=== PATIENT | female | born 1945 | race Caucasian/White ===

== ENCOUNTER 2025-01-07 11:44 | Emergency (ER) | payer MEDICARE, MEDICAID ==
[~2025-01-07] VITALS: Ht 162.6 cm; Wt 54.5 kg
[2025-01-07] MEDS ORDERED: AZIT-43 PO (13:00)
[2025-01-07] MEDS ORDERED: MAGIC MT (13:00)
--- NOTE | 2025-01-07 13:00 | ED.PDOC ---
Eye-HPI HPI Comments 79-year-old female with no pertinent MHx presents with a chief complaint of a sore throat x3 days. Onset was sudden in his currently aggravated when swallowing her saliva. Using [id number] lozenges with some improvement. No other complaint or concern Denies chest pain shortness of breath Denies inability to move neck, history of meningitis Denies difficulty swallowing nor persistent salivation Denies fevers chills night sweats Denies persistent cough, runny nose, congestion Denies loss of appetite, unintentional weight loss over the past 3 months Denies voice changes Denies history of asthma or seasonal allergies Chief Complaint: Sore Throat Time Seen by MD: 12:08 Primary Care Provider: OLLIE Monreal Notes: Nurses Notes, Medications, Allergies Allergies: Coded Allergies: NO KNOWN ALLERGIES (Unverified , 03/05/24) Information Source: Patient Mode of Arrival: Ambulatory Past Medical History PAST MEDICAL HISTORY: [place] Surgical History: PTCA POISER BALANCE History: Denies all POISER BALANCE Hx Family History Family History: Reviewed,noncontributory to illness, Unknown Social History Smoker: Cigarettes, Less Than 1 Pack/Day Alcohol: Denies ETOH Use Drugs: Denies Drug Use Lives In: Home All Other Systems: Reviewed and Negative (Per HPI) Physical Exam General Appearance: No Apparent Distress, Normal HEENT: Normal ENT Inspection, Pharyngeal Erythema (Uvula midline. Moist mucous membranes. No strawberry tongue. No Koplik's spots. Canker sores to the roof of the hard palate.), Pharynx Normal, TMs Normal Neck: Full Range of Motion, Non-Tender, Normal, Normal Inspection Respiratory: Chest Non-Tender, Lungs Clear, No Accessory Muscle Use, No Respiratory Distress, Normal Breath Sounds Cardiovascular: No Edema, No JVD, No Murmur, No Gallop, Normal Peripheral Pulses, Regular Rate/Rhythm Breast Exam: Deferred Gastrointestinal: No Organomegaly, Non Tender, No Pulsatile Mass, Normal Bowel Sounds, Soft Genitalia: Deferred Pelvic: Deferred Rectal: Deferred Extremities: No calf tenderness, Normal capillary refill, Normal inspection, Normal range of motion, Non-tender, No pedal edema Musculoskeletal : Apperance: Normal Neurologic: Alert, assistant corporation counsel II-XII nml as Tested, No Motor Deficits, Normal Affect, Normal Mood, No Sensory Deficits Cerebellar Function: Normal Reflexes: Normal Skin: Dry, Normal Color, Warm Lymphatic: No Adenopathy Was a procedure done? Was a procedure done?: No EENT DIFF Eye: Other Sore Throat: Viral Pharyngitis, URI, Other X-Ray, Labs, Meds, VS Vital Signs Date Time Temp Pulse Resp B/P (MAP) Pulse Ox O2 Delivery O2 Flow Rate FiO2 01/07/25 11:59 99.1 99 17 111/51 (71) 98 99.1 X-Ray, Labs, Meds, VS Comment 79-year-old female with no pertinent MHx presents with a chief complaint of a sore throat x3 days. Patient arrives alert and oriented, ABC's intact, afebrile, vital signs stable, saturating well in room air After ROS and physical examination, differentials considered but not limited to: Patient with herpangina (cannot exclude early stomatitis). Good oral intake Smiling, alert and playful with examiner. Oral lesions without evidence of a irway compromise. Fully immunized and non-toxic appearing with good urine output. Rx mouthwash this evening if no significant improvement with motrin. Empiric tx with ABx Additional MDM Review of External, Non-ED records: External records reviewed. Discussion with independent historian (EMS, family) history obtained from the patient/parents (if applicable) at bedside Chronic conditions affecting care: None Social determinants of health affecting care: None Consideration of admission (observation or admission): I considered escalation of care to admission for this patient, however given the reassuring workup, the patient is safe for outpatient management. Tests considered but not performed: Labs and chest x-ray however patient was nontoxic non ill-appearing. The patient was able to ambulate too fast drink on room air with no signs of respiratory distress. Vital signs stable Time of 1ST Reevaluation: 12:54 Reevaluation 1ST: Improved Patient Education/Counseling: Diagnosis, Treatment Family Education/Counseling: Diagnosis, Treatment Departure 1 Departure Time of Disposition: 12:58 Impression: Primary Impression: Acute herpangina Disposition: HOME / SELF CARE / HOMELESS Condition: Fair e-Prescriptions Alum & Mag Hydrox-Simethicone (Magic Mouthwash) 80 Ml Ss 80 ML MT TIDPRN PRN for 10 Days, #200 ML 0 Refills Prov: LB FONSECA SINTER PRESS OPERATOR 01/07/25 Azithromycin (Azithromycin) 250 Mg Tab 250 MG PO DAILY MDD 500 for 5 Days, #6 TAB 0 Refills 2 TABLETS ORALLY ON DAY ONE, THEN 1 TABLET ORALLY DAILY FOR 4 DAYS Prov: LB FONSECA NP 01/07/25 Discharged With: Self Critical Care Note Critical Care Time?: No Stability Stability form required: No Heart Score Heart Score: Heart Score Response (Comments) Value History N/A 0 EKG N/A 0 Age N/A 0 Risk Factors N/A 0 Troponin N/A 0 Total 0 LB FONSECA NP January 07, 2025 13:00
[2025-01-07 13:03] VITALS: BP 115/60; PULSE 95; RESP 16; TEMP 99.2; O2SAT 98
== END 2025-01-07 13:15 | disposition home or self-care (01) ==
LOC: ER 11:44
DX: B08.5 Enteroviral vesicular pharyngitis (principal); F17.210 Nicotine dependence, cigarettes, uncomplicated

== ENCOUNTER 2025-01-11 08:17 | Inpatient (IN) | payer MEDICARE, MEDICAID ==
[~2025-01-11] VITALS: Ht 162.6 cm; Wt 53.0 kg
[2025-01-11] VITALS (7 sets, daily range): BP systolic 114–159; BP diastolic 47–82; PULSE 54–86; RESP 12–20; TEMP 97.6–98.4; O2SAT 95–96
[~2025-01-11 08:17] MED LIST: AZIT-43 PO; MAGIC MT
--- NOTE | 2025-01-11 08:46 | ED.PDOC ---
History of Present Illness HPI Comments 79-year-old female came to the ER stating that she was having lesions in her mouth white in color which started two weeks ago. She was seen in this ER for which she was given azithromycin in her mouth wash. Patient came back today stating that he has got worse and she is having pain in back of the throat. She does continue to smoke cigarettes. Her blood pressure on arrival is 96/53. She denies any past medical surgical history. Denies any other symptoms. Chief Complaint: Thrush Time Seen by MD: 08:19 Primary Care Provider: ZAYDA Reviewed Notes: Nurses Notes, Medications, Allergies Allergies: Coded Allergies: NO KNOWN ALLERGIES (Unverified , 03/05/24) Home Meds Active Scripts Alum & Mag Hydrox-Simethicone (Magic Mouthwash) 80 Ml Ss, 80 ML MT TIDPRN PRN for 10 Days, #200 ML 0 Refills Prov:LB FONSECA NP 01/07/25 Azithromycin (Azithromycin) 250 Mg Tab, 250 MG PO DAILY MDD 500 for 5 Days, #6 TAB 0 Refills 2 TABLETS ORALLY ON DAY ONE, THEN 1 TABLET ORALLY DAILY FOR 4 DAYS Prov:LB FONSECA NP 01/07/25 Information Source: Patient Mode of Arrival: Ambulatory Severity: Moderate Timing: Days Duration: Since onset Past Medical History PAST MEDICAL HISTORY: [place] Surgical History: PTCA CLINICAL QUALITY ASSURANCE ASSOCIATE 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: Denies all CLINICAL QUALITY ASSURANCE ASSOCIATE Hx Family History Family History: Reviewed,noncontributory to illness, Unknown Social History Smoker: Cigarettes, Less Than 1 Pack/Day Alcohol: Denies ETOH Use Drugs: Denies Drug Use Lives In: Home Constitutional: denies: chills, diaphoresis, fatigue, fever, malaise, sweats, weakness, others EENTM: reports: throat pain; denies: blurred vision, double vision, ear bleeding, ear discharge, ear drainage, ear pain, ear ringing, eye pain, eye redness, hearing loss, mouth pain, mouth swelling, nasal discharge, nose bleeding, nose congestion, nose pain, photophobia, tearing, throat swelling, voice changes, others Respiratory: denies: cough, hemoptysis, orthopnea, SOB at rest, shortness of breath, SOB with excertion, stridor, wheezing, others Cardiovascular: denies: chest pain, dizzy spells, diaphoresis, Dyspnea on exertion, edema, irregular heart beat, left arm pain, lightheadedness, palpitations, PND, syncope, others Gastrointestinal: denies: abdomen distended, abdominal pain, blood streaked bowels, constipated, diarrhea, dysphagia, difficulty swallowing, hematemesis, melena, nausea, poor appetite, poor fluid intake, rectal bleeding, rectal pain, vomiting, others Genitourinary: denies: abnormal vagina bleeding, burning, dyspareunia, dysuria, flank pain, frequency, hematuria, incontinence, pain, , vagina discharge, urgency, others Neurological: denies: dizziness, fainting, headache, left sided numbness, left sided weakness, numbness, paresthesia, pre-existing deficit, right sided numbness, right sided weakness, seizure, speech problems, tingling, tremors, weakness, others Musculoskeletal: denies: back pain, gout, joint pain, joint swelling, muscle pain, muscle stiffness, neck pain, others Integumetry: denies: bruises, change in color, change in hair/nails, dryness, laceration, lesions, lumps, rash, wounds, others Allergic/Immunocompromised: denies: Difficulty Healing, Frequent Infections, Hives, Itching, others Hematologic/Lymphatic: denies: anemia, blood clots, easy bleeding, easy bruising, swollen glands, others Endocrine: denies: excessive hunger, excessive sweating, excessive thirst, excessive urination, flushing, intolerance to cold, intolerance to heat, unexplained weight gain, unexplained weight loss, others Psychiatric: denies: anxiety, bipolar disorder, depression, hopeless, panic disorder, schizophrenia, sleepless, suicidal, others Physical Exam General Appearance: Moderate Distress, Thin HEENT: Pharyngeal Erythema Neck: Full Range of Motion, Non-Tender, Normal, Normal Inspection Respiratory: Other (Coarse breath sounds) Cardiovascular: No Edema, No JVD, No Murmur, No Gallop, Normal Peripheral Pulses, Regular Rate/Rhythm Breast Exam: Deferred Gastrointestinal: No Organomegaly, Non Tender, No Pulsatile Mass, Normal Bowel Sounds, Soft Genitalia: Deferred Pelvic: Deferred Rectal: Deferred Extremities: No calf tenderness, No pedal edema Musculoskeletal : Apperance: Normal Neurologic: Alert, No Motor Deficits, No Sensory Deficits Cerebellar Function: NOT DONE Reflexes: NOT DONE Skin: Normal Color Peripheral Pulses: 3+ Radial (R), 3+ Radial (L) Lymphatic: No Adenopathy Was a procedure done? Was a procedure done?: No Differential Dx Considerations may include: Pneumonitis Pharyngitis X-Ray, Labs, Meds, VS Vital Signs Date Time Temp Pulse Resp B/P (MAP) Pulse Ox O2 Delivery O2 Flow Rate FiO2 01/11/25 08:17 97.6 90 16 96/53 (67) 95 97.6 Lab Test 01/11/25 08:55 Range/Units White Blood Count 4.9 4.4-10.8 10^3/uL Red Blood Count 3.96 L 4.0-5.20 10^6/uL Hemoglobin 12.7 12.2-16.2 g/dL Hematocrit 37.9 36.0-46.0 % Mean Corpuscular Volume 95.7 80.0-100.0 fL Mean Corpuscular Hemoglobin 32.2 H 28.0-32.0 pg Mean Corpuscular Hemoglobin Concent 33.6 32.0-36.0 g/dL Red Cell Distribution Width 15.0 H 11.8-14.3 % Platelet Count 18 *L 140-450 10^3/uL Mean Platelet Volume 8.9 6.9-10.8 fL Neutrophils (%) (Auto) 37.0-80.0 % Lymphocytes (%) (Auto) 10.0-50.0 % Monocytes (%) (Auto) 0.0-12.0 % Basophils (%) (Auto) 0.0-2.0 % Neutrophils # (Auto) 1.6-8.6 10 ^3/uL Lymphocytes # (Auto) 0.4-5.4 10 ^3/uL Monocytes # (Auto) 0-1.3 10 ^3/uL Differential Total Cells Counted 100.0 100 Neutrophils % (Manual) 31 L 37.0-80.0 Band Neutrophils % (Manual) 1 Lymphocytes % (Manual) 59 H 10.0-50.0 Monocytes % (Manual) 4 0-12 Eosinophils % (Manual) 5 0-7 Basophils % (Manual) 0 0.0-2.0 Metamyelocytes % (manual) 0 Myelocytes % (Manual) 0 Promyelocytes % (Manual) 0 Blast Cells % (Manual) 0 Reactive Lymphocytes 0 Platelet Estimate Markedly decreased Sodium Level 139 136-145 mmol/L Potassium Level 3.6 3.5-5.1 mmol/L Chloride Level 108 H 98-107 mmol/L Carbon Dioxide Level 23 20-31 mmol/L Anion Gap 8 5-15 Blood Urea Nitrogen 16 9-23 mg/dL Creatinine 0.66 0.550-1.02 mg/dL Glomerular Filtration Rate Calc 88 >90 mL/min BUN/Creatinine Ratio 24.2 H 10.0-20.0 Serum Glucose 94 74-106 mg/dL Calcium Level 9.6 8.7-10.4 mg/dL Patient alert. Complaining of throat pain. Saturation within normal limits. Answering questions. Blood pressure on the low side. Establish intravenous access. Was given fluids. Was given Rocephin. Was given clindamycin. Continues to smoke cigarettes. Counseled patient on effects of smoking cigarettes for 15 minutes. She is underweight. Explained to the patient that she will need to gain weight. Continue monitoring. She was given steroid. She was given Rocephin. She was given clindamycin. [place] [id number] Ph: [phone] DIAGNOSTIC IMAGING Diagnostic Imaging Report : [id number] Signed PATIENT: STEVE SANTIAGO CACCT: [id number] UNIT: [id number] : 1945 LOC: ER ROOM / BED: / AGE / SEX: 79 / F ADM STATUS: REG ER SERVICE 9 ORDERING PHYSICIAN: NAUN ZAPATA MD PROCEDURE(s): CXRP - CHEST PORTABLE REASON: sob ORDER NUMBER(s): [id number], ACCESSION NUMBER(s): [id number] EXAM: XY CHEST PORTABLE Indication: sob Technique: Single frontal view of the chest was obtained Comparison: None FINDINGS: Lines and Tubes: None Lungs: No focal consolidation. Pleura: No effusion. No pneumothorax. Cardiomediastinal contours: Unremarkable. Atherosclerotic vascular calcifications of the thoracic aorta are noted. Bones: No acute osseous abnormality. IMPRESSION: No acute cardiopulmonary disease. ATED BY: KERRI ZAVALA MD DICTATED DATE/TIME: 01/11/25908 SIGNED BY: KERRI ZAVALA MD SIGNED DATE/TIME: 06/02/25 0909 CC: Time of 1ST Reevaluation: 08:43 Reevaluation 1ST: Unchanged Patient Education/Counseling: Diagnosis, Treatment, Prognosis Family Education/Counseling: Need For Follow Up Departure 1 Departure Time of Disposition: 08:45 Impression: Primary Impression: Pneumonitis Additional Impressions: Pharyngitis Qualified Codes: J02.9 - Acute pharyngitis, unspecified Thrombocytopenia Disposition: ADMITTED INPATIENT Admit to: Med Surg Condition: Guarded Critical Care Note Critical Care Time?: Yes (90 min-critical care time only) Critical care comment: Platelets are low transfusion consultation Stability Stability form required: No Heart Score Heart Score: Heart Score Response (Comments) Value History N/A 0 EKG N/A 0 Age N/A 0 Risk Factors N/A 0 Troponin N/A 0 Total 0 I personally scribed for NAUN ZAPATA MD ([email or web address]) on 01/11/25 at 09:50. Electronically submitted by Roni Zhou ([email or web address]). NAUN ZAPATA MD Jan 11, 2025 08:46
[2025-01-11 09:06] LABS: Hematocrit 37.9 % (36.0-46.0); Hemoglobin 12.7 g/dL (12.2-16.2); Mean Corpuscular Hemoglobin 32.2 pg (28.0-32.0); Mean Corpuscular Hgb Conc. 33.6 g/dL (32.0-36.0); Mean Corpuscular Volume 95.7 fL (80.0-100.0); Red Blood Cells 3.96 10^6/uL (4.0-5.20); White Blood Cell 4.9 10^3/uL (4.4-10.8)
--- NOTE | 2025-01-11 09:12 | DVH ---
EXAM: XY CHEST PORTABLE Indication: sob Technique: Single frontal view of the chest was obtained Comparison: None FINDINGS: Lines and Tubes: None Lungs: No focal consolidation. Pleura: No effusion. No pneumothorax. Cardiomediastinal contours: Unremarkable. Atherosclerotic vascular calcifications of the thoracic ao rta are noted. Bones: No acute osseous abnormality. IMPRESSION: No acute cardiopulmonary disease.
[2025-01-11 09:14] LABS: Potassium 3.6 mmol/L (3.5-5.1); Sodium 139 mmol/L (136-145)
[2025-01-11 09:15] LABS: Anion Gap 8 (5-15); Carbon Dioxide 23 mmol/L (20-31); Platelet Count (auto) 18 10^3/uL (140-450)
[2025-01-11 09:16] LABS: Calcium 9.6 mg/dL (8.7-10.4)
[2025-01-11 09:17] LABS: Basophils % (manual) 0 (0.0-2.0); Blast Cells 0; Metamyelocytes % 0; Myelocytes % 0; Promyelocytes % 0; Reactive Lymphocytes 0
[2025-01-11 09:20] LABS: BUN/Creatinine Ratio 24.2 (10.0-20.0); Blood Urea Nitrogen 16 mg/dL (9-23); Glucose 94 mg/dL (74-106)
[2025-01-11 09:22] LABS: Chloride 108 mmol/L (98-107)
[2025-01-11 09:29] LABS: Band Neutrophils % (manual) 1; Eosinophils % (manual) 5 (0-7); Lymphocytes % (manual) 59 (10.0-50.0); Monocytes % (manual) 4 (0-12); Platelet Estimate Markedly Decreased
--- NOTE | 2025-01-11 10:34 | DVHHP2 ---
Admitting Diagnosis: Sores to mouth History of Present Illness 79 y/o female patient presents with c/o white sores to mouth. Patient states she was previously seen for same complaint and was prescribed Azithromycin. Patient is a smoker. While in the emergency department the patient was evaluated by the provider, As per provider: Labs, vital signs, and imagining monitored. Patient will be admitted for further evaluation and treatment. I discussed admission with the patient/family and is in agreement to treatment plan. Allergies: Coded Allergies: NO KNOWN ALLERGIES (Unverified , 03/05/24) Home Meds Active Scripts Alum & Mag Hydrox-Simethicone (Magic Mouthwash) 80 Ml Ss, 80 ML MT TIDPRN PRN for 10 Days, #200 ML 0 Refills Prov:LB FONSECA CNC SUPERVISOR 01/07/25 Azithromycin (Azithromycin) 250 Mg Tab, 250 MG PO DAILY MDD 500 for 5 Days, #6 TAB 0 Refills 2 TABLETS ORALLY ON DAY ONE, THEN 1 TABLET ORALLY DAILY FOR 4 DAYS Prov:LB FONSECA CNC SUPERVISOR 01/07/25 Reported Medications Oxybutynin Chloride (Oxybutynin Chloride) 2.5 Mg Tab, 10 MG PO, TAB 01/11/25 Pantoprazole Sodium Sesquihydr (Pantoprazole Sodium) 40 Mg Tab, 40 MG PO, TAB 01/11/25 Clopidogrel Bisulfate (CLOPIDOGREL) 75 Mg Tab, 1 TAB PO DAILY, #90 TAB 1 Refill 01/11/25 Atorvastatin Calcium (ATORVASTATIN CALCIUM) 10 Mg Tab, 1 TAB PO DAILY, #30 TAB 5 Refills 01/11/25 Methotrexate (Methotrexate) 2.5 Mg Tab, 2.5 MG PO, MG 01/11/25 Gabapentin (Gabapentin) 600 Mg Tab, 600 MG PO TID for 30 Days, MG 01/11/25 Current Medications Current Medications Medications (Trade) Dose Ordered Sig/Damian Route PRN Reason Start Time Stop Time Status Last Admin Acetaminophen/ Hydrocodone Bitart ([place] 5/325MG Tab) 1 tab Q4HP PRN PO MODERATE PAIN (4-6 PAIN SCALE) 01/11/25 10:45 01/11/25 12:39 Ondansetron HCl (Zofran) 4 mg Q4HP PRN IV NAUSEA / VOMITING 01/11/25 10:45 Docusate Sodium (Colace Capsule) 100 mg BIDPRN PRN PO FOR CONSTIPATION 01/11/25 10:45 Acetaminophen (Tylenol Tablet) 650 mg Q6HP PRN PO PAIN SCALE 1-3 OR TEMP>100.4 01/11/25 10:45 Morphine Sulfate 2 mg Q4HPRN PRN IV SEVERE PAIN (7-10 PAIN SCALE) 01/11/25 10:45 Enoxaparin Sodium (Lovenox) 40 mg DAILY SC 01/11/25 10:45 01/11/25 10:36 DC Lidocaine HCl (Xylocaine 2% Viscous) 10 ml Q6HR PO 01/11/25 12:00 01/11/25 18:06 Nystatin (Mycostatin (Mouth-Throat)) 5 ml Q6HR MT 01/11/25 12:00 01/11/25 18:05 Review of Systems Constitutional: denies chills, denies fever, denies malaise Eyes: denies eye pain, denies vision change ENT: denies ear pain, denies headache, denies nasal congestion, denies painful swallowing, denies voice change Cardiovascular: denies chest pain, denies edema, denies orthopnea, denies palpitations, denies paroxysmal nocturnal dyspnea Respiratory: denies cough, denies shortness of breath Gastrointestinal: denies constipation, denies diarrhea, denies nausea, denies vomiting Genitourinary: denies dysuria, denies frequent urination, denies urethral discharge Musculoskeletal: denies back pain, denies joint pain, denies muscle pain Skin: denies bruising, denies itching, denies rash Neurological: denies focal weakness, denies headache, denies sensory changes Psychiatric: denies anxiety, denies depression Endocrine: denies polydipsia, denies polyuria Hematologic/Lymphatic: denies easy bleeding, denies easy bruising, denies enlarged lymph nodes Allergic/Immunologic: denies allergy, denies hives Vital Signs Vital Signs Date Time Temp Pulse Resp B/P (MAP) Pulse Ox O2 Delivery O2 Flow Rate FiO2 01/11/25 18:13 97.6 54 20 159/66 (97) 96 97.6 01/11/25 18:13 Room Air* 0 21 Physical Exam General Appearance: alert, no distress HEENT: EOMI, PERRLA, normal external inspect of ears, no icterus, no nasal drainage Neck: no carotid bruit, no jugular venous distention (JVD), no lymphadenopathy Chest: normal thorax Respiratory: clear to auscultation, normal air movement Cardiovascular: regular rate and rhythm, no diastolic murmur, no jugular venous distention (JVD), no rub, no systolic murmur Abdominal: soft, no hepatomegaly, no mass, no splenomegaly, no tenderness Genitourinary: grossly normal external Musculoskeletal: no joint tenderness, no swelling Extremities: normal pulses, no calf tenderness, no clubbing, no cyanosis, no edema Skin: no bruising, no jaundice, no rash Neurological: alert, No focal deficit Results Labs Test 01/11/25 18:16 01/11/25 08:55 Range/Units White Blood Count 2.7 L 4.4-10.8 10^3/uL Red Blood Count 3.82 L 4.0-5.20 10^6/uL Hemoglobin 12.5 12.2-16.2 g/dL Hematocrit 36.3 36.0-46.0 % Mean Corpuscular Volume 95.0 80.0-100.0 fL Mean Corpuscular Hemoglobin 32.7 H 28.0-32.0 pg Mean Corpuscular Hemoglobin Concent 34.4 32.0-36.0 g/dL Red Cell Distribution Width 15.1 H 11.8-14.3 % Platelet Count 22 L 140-450 10^3/uL Mean Platelet Volume 8.9 6.9-10.8 fL Neutrophils (%) (Auto) 69.5 37.0-80.0 % Lymphocytes (%) (Auto) 29.2 10.0-50.0 % Monocytes (%) (Auto) 0.9 0.0-12.0 % Eosinophils (%) (Auto) 0.3 0.0-7.0 % Basophils (%) (Auto) 0.1 0.0-2.0 % Neutrophils # (Auto) 1.9 1.6-8.6 10 ^3/uL Lymphocytes # (Auto) 0.8 0.4-5.4 10 ^3/uL Monocytes # (Auto) 0 0-1.3 10 ^3/uL Eosinophils # (Auto) 0 0-0.8 10 ^3/uL Basophils # (Auto) 0 0-0.2 10 ^3/uL Nucleated Red Blood Cells 0.2 % Platelet Estimate Decreased Differential Total Cells Counted 100.0 100 Neutrophils % (Manual) 31 L 37.0-80.0 Band Neutrophils % (Manual) 1 Lymphocytes % (Manual) 59 H 10.0-50.0 Monocytes % (Manual) 4 0-12 Eosinophils % (Manual) 5 0-7 Basophils % (Manual) 0 0.0-2.0 Metamyelocytes % (manual) 0 Myelocytes % (Manual) 0 Promyelocytes % (Manual) 0 Blast Cells % (Manual) 0 Reactive Lymphocytes 0 Sodium Level 139 136-145 mmol/L Potassium Level 3.6 3.5-5.1 mmol/L Chloride Level 108 H 98-107 mmol/L Carbon Dioxide Level 23 20-31 mmol/L Anion Gap 8 5-15 Blood Urea Nitrogen 16 9-23 mg/dL Creatinine 0.66 0.550-1.02 mg/dL Glomerular Filtration Rate Calc 88 >90 mL/min BUN/Creatinine Ratio 24.2 H 10.0-20.0 Serum Glucose 94 74-106 mg/dL Calcium Level 9.6 8.7-10.4 mg/dL Plan 1. Oral sores Monitor, IV abx, Lidocaine swish and swallow, Nystatin swish and spit 2. Thrombocytopenia Monitor, transfuse platelets 3. Smoker Monitor, smoking cessation education 4. Pharyngitis Monitor, throat swab Plan discussed with: Patient, Other ALEX GROSSMAN NP Jan 11, 2025 10:34
[2025-01-11] MEDS ORDERED: DOCUSATE SOD 100 MG CAP PO PRN (10:45)
[2025-01-11] MEDS ORDERED: MORPHINE SULFATE INJ 2 MG/ml SYRG IV PRN (10:45)
[2025-01-11] MEDS ORDERED: ENOXAPARIN SOD 40 MG/0.4 ML SYRINGE SC SCH (10:45)
[2025-01-11] MEDS: cefTRIAXone 1GM/50ML D5W 50 ML IV ONE (12:27)
[2025-01-11] MEDS: SODIUM CHLORIDE 0.9% 1,000 ML IV ONE (12:28)
[2025-01-11] MEDS: CLINDAMYCIN 300MG IV 50 ML IV ONE (12:28)
[2025-01-11] MEDS: methylPREDNISolone SOD SUCC 125 MG/2 ML VL IV ONE (12:28)
[2025-01-11] MEDS: LIDOCAINE VISCOUS 2% 15ML UD PO SCH (12:38)
[2025-01-11] MEDS: NYSTATIN (MOUTH-THROAT) 500,000 UNITS/5 ML SUSP MT SCH (12:38)
[2025-01-11] MEDS: HYDROcodone-ACET 5/325MG TAB PO PRN (12:39)
[2025-01-11] MEDS ORDERED: GABA-339 PO (18:17)
[2025-01-11] MEDS ORDERED: METH2.5T PO (18:17)
[2025-01-11] MEDS ORDERED: PANT40T PO (18:25)
[2025-01-11] MEDS ORDERED: CLOP75TA70 PO (18:25)
[2025-01-11] MEDS ORDERED: ATOR10TA52 PO (18:25)
[2025-01-11] MEDS ORDERED: OXYB2.5T PO (18:26)
[2025-01-11 18:52] LABS: Basophils # (auto) 0 10 ^3/uL (0-0.2); Eosinophils # (auto) 0 10 ^3/uL (0-0.8); Eosinophils % (auto) 0.3 % (0.0-7.0); Hemoglobin 12.5 g/dL (12.2-16.2); Lymphocytes # (auto) 0.8 10 ^3/uL (0.4-5.4); Monocytes # (auto) 0 10 ^3/uL (0-1.3); Neutrophils # (auto) 1.9 10 ^3/uL (1.6-8.6); Nucleated Red Blood Cells % 0.2 %; White Blood Cell 2.7 10^3/uL (4.4-10.8)
[2025-01-11 18:54] LABS: Basophils % (auto) 0.1 % (0.0-2.0); Hematocrit 36.3 % (36.0-46.0); Lymphocytes % (auto) 29.2 % (10.0-50.0); Mean Corpuscular Hemoglobin 32.7 pg (28.0-32.0); Mean Corpuscular Hgb Conc. 34.4 g/dL (32.0-36.0); Monocytes % (auto) 0.9 % (0.0-12.0); Neutrophils % (auto) 69.5 % (37.0-80.0); Platelet Count (auto) 22 10^3/uL (140-450); Red Blood Cells 3.82 10^6/uL (4.0-5.20); Red Cell Distribution Width 15.1 % (11.8-14.3)
[2025-01-11 19:25] LABS: Platelet Estimate Decreased
[2025-01-12] VITALS (8 sets, daily range): BP systolic 140–181; BP diastolic 77–97; PULSE 54–90; RESP 16–18; TEMP 96.9–98.8; O2SAT 95–98
[2025-01-12] MEDS: traZODone HCL 50 MG TAB PO PRN (01:25)
[2025-01-12 05:44] LABS: Urine Bacteria None Seen /hpf (None Seen)
[2025-01-12 05:56] LABS: Urine Blood TRACE /uL (Negative); Urine Clarity Clear (Clear); Urine Color Light-Yellow (Yellow); Urine Protein, UAD Negative (Negative); Urine Squamous Epithelial Cell None Seen /hpf (<5); Urine Urobilinogen Normal (Negative); Urine WBC < 1 /HPF (0-5)
[2025-01-12 06:25] LABS: Alanine Aminotransferase 12 U/L (7-40); Albumin 3.7 g/dL (3.2-4.8); Alkaline Phosphatase 66 U/L (46-116); Anion Gap 9 (5-15); Blood Urea Nitrogen 12 mg/dL (9-23); Calcium 9.1 mg/dL (8.7-10.4); Carbon Dioxide 23 mmol/L (20-31); Chloride 107 mmol/L (98-107); Glucose 100 mg/dL (74-106); Potassium 3.5 mmol/L (3.5-5.1); Sodium 139 mmol/L (136-145); Total Protein 6.9 g/dL (5.7-8.2)
[2025-01-12 06:26] LABS: Aspartate Aminotransferase 20 U/L (13-40); Bilirubin, Total 0.5 mg/dL (0.2-1.0)
[2025-01-12 06:30] LABS: Basophils # (auto) 0 10 ^3/uL (0-0.2); Eosinophils # (auto) 0 10 ^3/uL (0-0.8); Eosinophils % (auto) 0.1 % (0.0-7.0); Hemoglobin 11.6 g/dL (12.2-16.2); Monocytes # (auto) 0 10 ^3/uL (0-1.3); Monocytes % (auto) 0.5 % (0.0-12.0); Neutrophils # (auto) 3.8 10 ^3/uL (1.6-8.6)
[2025-01-12 06:33] LABS: Hematocrit 34.5 % (36.0-46.0); Lymphocytes # (auto) 2.2 10 ^3/uL (0.4-5.4); Lymphocytes % (auto) 36.4 % (10.0-50.0); Mean Corpuscular Hemoglobin 32.1 pg (28.0-32.0); Mean Corpuscular Hgb Conc. 33.6 g/dL (32.0-36.0); Mean Corpuscular Volume 95.4 fL (80.0-100.0); Red Blood Cells 3.62 10^6/uL (4.0-5.20); Red Cell Distribution Width 14.8 % (11.8-14.3); White Blood Cell 6.1 10^3/uL (4.4-10.8)
[2025-01-12 06:46] LABS: Platelet Count (auto) 18 10^3/uL (140-450)
[2025-01-12] MEDS ORDERED: CHOL20007 PO (10:53)
[2025-01-12] MEDS ORDERED: FOLI-119 PO (10:53)
[2025-01-12] MEDS ORDERED: GABA800T97 PO (10:53)
[2025-01-12] MEDS ORDERED: METO25TA5 PO (10:53)
[2025-01-12] MEDS ORDERED: HYDR-4798 PO (10:54)
--- NOTE | 2025-01-12 12:09 | DVHPN2 ---
Progress Note - Dictate Date Seen: Jan 12, 2025 Medical Necessity Reason Pt with a Central, PICC or Fol: No vital signs Vital Sign Date Time Temp Pulse Resp B/P (MAP) Pulse Ox O2 Delivery O2 Flow Rate FiO2 01/12/25 08:15 Room Air* 0 21 01/12/25 00:38 96.9 54 18 140/77 (98) 98 96.9 Total Intake and Output 01/11/25 01/11/25 01/12/25 15:00 23:00 07:00 Intake Total 1100 ml 333 ml 100 ml Balance 1100 ml 333 ml 100 ml medications Current Medications Medications Dose Ordered Sig/Damian Route Start Time Stop Time Status Last Admin Dose Admin Acetaminophen/ Hydrocodone Bitart 1 tab Q4HP PRN PO 01/11/25 10:45 01/11/25 21:36 1 TAB Ondansetron HCl 4 mg Q4HP PRN IV 01/11/25 10:45 Docusate Sodium 100 mg BIDPRN PRN PO 01/11/25 10:45 Acetaminophen 650 mg Q6HP PRN PO 01/11/25 10:45 Morphine Sulfate 2 mg Q4HPRN PRN IV 01/11/25 10:45 Lidocaine HCl 10 ml Q6HR PO 01/11/25 12:00 01/12/25 05:26 10 ML Nystatin 5 ml Q6HR MT 01/11/25 12:00 01/12/25 05:26 5 ML Trazodone HCl 50 mg HS PRN PO 01/12/25 00:45 01/12/25 01:25 50 MG objective General Appearance: alert, no distress HEENT: EOMI, PERRLA, normal external inspect of ears, no icterus, no nasal drainage Neck: no carotid bruit, no jugular venous distention (JVD), no lymphadenopathy Chest: normal thorax Respiratory: clear to auscultation, normal air movement Cardiovascular: regular rate and rhythm, no diastolic murmur, no jugular venous distention (JVD), no rub, no systolic murmur Abdominal: soft, no hepatomegaly, no mass, no splenomegaly, no tenderness Musculoskeletal: no joint tenderness, no swelling Extremities: normal pulses, no calf tenderness, no clubbing, no cyanosis, no edema Skin: no bruising, no jaundice, no rash Neurological: alert, No focal deficit laboratory and microbiology Laboratory Tests 01/12/25 05:29 Test 01/12/25 05:29 Range/Units Serum Glucose 100 74-106 mg/dL Problem List 1. Oral sores Monitor, IV abx, Lidocaine swish and swallow, Nystatin swish and spit 2. Thrombocytopenia Monitor, transfuse platelets 3. Smoker Monitor, smoking cessation education 4. Pharyngitis Monitor, throat swab Assessment/Plan Subjective Patient is awake and alert. Objective I did speak with hematology today. Patient had low platelet count. Patient has underlying history of rheumatoid arthritis. She is on a high dose of methotrexate. Patient also has CAD. Patient takes aspirin and Plavix. Plan Monitor to see if aspirin, Plavix and methotrexate is because of low platelet level. Multiple labs ordered. Transfuse 1 unit of platelets today. Discussed with cardiology if patient continues to need antiplatelet therapy at this time. Smoking cessation. Continue lidocaine and nystatin swish and swallow for mouth sores. Patient most likely has low immune system due to methotrexate. Repeat labs ordered for a.m. Plan discussed with: Patient, Other CC Plasma Assessment Blood Product Administration S: [id number] ALEX GROSSMAN NP Jan 12, 2025 12:09
[2025-01-12 13:43] LABS: Wright Stain Ready for Review
[2025-01-12 13:48] LABS: Thyroid Stimulating Hormone 0.69 uIU/mL (0.55-4.78)
[2025-01-12 14:34] LABS: Folate (Folic Acid) 15.92 ng/mL (>5.38)
[2025-01-12 14:45] LABS: INR 1.14 (0.9-1.15); Prothrombin Time 11.9 sec (9.3-11.8)
--- NOTE | 2025-01-12 17:57 | DVHINCON2 ---
Date of service: Jan 12, 2025 History of Present Illness HPI Patient is a 79-year-old female who presented to the hospital with sore throat and white lesions in the mouth. It seems that the patient presented few days back and then again to emergency room. She was found to have thrombocytopenia and has received platelet transfusion since admission. It is of note that the patient does have old history of coronary artery disease and has had [place] in [place] [facility] She has been kept on aspirin with Plavix as outpatient since then. She denies any recent chest pains or dyspnea on exertion. Primary team requested for Cardiology consultation as they have decided to hold back on anticoagulation/antiplatelet therapy. Patient actually came to our office back in 2021 and was lost to follow-up since then. She denies any leg swellings. She denies palpitations. It is of note that she is active cigarette smoker and does carry old history of possible COPD. She does complain of chronic cough. Home Meds Active Scripts Alum & Mag Hydrox-Simethicone (Magic Mouthwash) 80 Ml Ss, 80 ML MT TIDPRN PRN for 10 Days, #200 ML 0 Refills Prov:LB FONSECA DRIER OPERATOR HELPER 01/07/25 Azithromycin (Azithromycin) 250 Mg Tab, 250 MG PO DAILY MDD 500 for 5 Days, #6 TAB 0 Refills 2 TABLETS ORALLY ON DAY ONE, THEN 1 TABLET ORALLY DAILY FOR 4 DAYS Prov:LB FONSECA DRIER OPERATOR HELPER 01/07/25 Reported Medications Hydrocodone-Acetaminophen (Hydrocodone Bitartrate/AC 10-325 mg) 1 Tab Tab, 1 TAB PO [id number] for pain, TAB 01/12/25 Cholecalciferol (VITAMIN D3) 2,000 Unit Tab, 1 TAB PO DAILY, #30 TAB 5 Refills 01/12/25 Metoprolol Tartrate (Metoprolol Tartrate) 25 Mg Tab, 25 MG PO BID for 30 Days, MG 25 Gabapentin (Gabapentin) 800 Mg Tab, 800 MG PO TID, TAB 01/12/25 Folic Acid (Folic Acid) 1 Mg Tab, 1 MG PO DAILY for 30 Days, MG /25 Oxybutynin Chloride (Oxybutynin Chloride) 2.5 Mg Tab, 10 MG PO, TAB 6//25 Pantoprazole Sodium Sesquihydr (Pantoprazole Sodium) 40 Mg Tab, 40 MG PO, TAB 01/11/25 Clopidogrel Bisulfate (CLOPIDOGREL) 75 Mg Tab, 1 TAB PO DAILY, #90 TAB 1 Refill 01/11/25 Atorvastatin Calcium (ATORVASTATIN CALCIUM) 10 Mg Tab, 1 TAB PO DAILY, #30 TAB 5 Refills 01/11/25 Methotrexate (Methotrexate) 2.5 Mg Tab, 2.5 MG PO, MG 01/11/25 Gabapentin (Gabapentin) 600 Mg Tab, 600 MG PO TID for 30 Days, MG 01/11/25 Past Medical History Others Past medical history includes coronary artery disease and status post PCI in 2000 (at [facility] hyperlipidemia, rheumatoid arthritis, Crohn's disease, chronic low back pain and COPD. She has had back surgeries before. She smokes cigarettes for many decades. She has been kept on dual antiplatelet therapy (aspirin/Plavix) for long-term. Smoker: Positive Drugs: None Review of Systems Constitutional: Malaise, Weakness Pulmonary/Respiratory: Dyspnea Cardiovascular: No symptom reported All Other Systems 14 point review of system was performed. Relevant findings as per above and as per HPI. Otherwise negative. H&P Exam Vital Signs Vital Signs Date Time Temp Pulse Resp B/P (MAP) Pulse Ox O2 Delivery O2 Flow Rate FiO2 01/12/25 13:35 97.8 66 18 150/79 97.8 01/12/25 13:00 97 01/12/25 08:15 Room Air* 0 21 General Appeara: Well developed Head Exam: Normal inspection Eye Exam: bilateral eye PERRL Mouth: Normal Inspection Pulmonary/Respiratory: Rhonci Cardiovascular/Chest: Normal inspection, Systolic murmur Peripheral Pulses: 2+ carotid (R), 2+ carotid (L), 2+ femoral (R), 2+ femoral (L), 2+ dorsalis pedis (R), 2+ dorsalis pedis (L), 2+ Radial (R), 2+ Radial (L) Abdominal Exam: Normal bowel sounds, Soft Neuro/Mental St: Alert, Oriented Appearance: Appropriate appearance Eye contact/ Speech: Cooperative Labs/Xrays Labs Test 01/12/25 15:49 01/12/25 13:57 01/12/25 05:39 01/12/25 05:29 Range/Units Prothrombin Time 11.9 H 9.3-11.8 sec Prothrombin Time INR 1.14 0.9-1.15 Fibrinogen 276 177-375 mg/dL Vitamin B12 Level 492 211-911 pg/mL Folic Acid 15.92 >5.38 ng/mL Urine Color Light-yellow Yellow Urine Clarity Clear Clear Urine pH 6.0 5.0-9.0 Urine Specific [place] 1.010 1.001-1.035 Urine Protein Negative Negative Urine Ketones Negative Negative Urine Blood Trace H Negative /uL Urine Nitrite Negative Negative Urine Bilirubin Negative Negative Urine Urobilinogen Normal Negative mg/dL Urine Leukocyte Esterase Negative Negative /uL Urine RBC 2 0 - 4 /hpf Urine Microscopic WBC < 1 0-5 /HPF Urine Squamous Epithelial Cells None seen <5 /hpf Urine Bacteria None seen None Seen /hpf Urine Glucose Normal Normal mg/dL White Blood Count 6.1 # 4.4-10.8 10^3/uL Red Blood Count 3.62 L 4.0-5.20 10^6/uL Hemoglobin 11.6 L 12.2-16.2 g/dL Hematocrit 34.5 L 36.0-46.0 % Mean Corpuscular Volume 95.4 80.0-100.0 fL Mean Corpuscular Hemoglobin 32.1 H 28.0-32.0 pg Mean Corpuscular Hemoglobin Concent 33.6 32.0-36.0 g/dL Red Cell Distribution Width 14.8 H 11.8-14.3 % Platelet Count 18 *L 140-450 10^3/uL Mean Platelet Volume 8.8 6.9-10.8 fL Neutrophils (%) (Auto) 63.0 37.0-80.0 % Lymphocytes (%) (Auto) 36.4 10.0-50.0 % Monocytes (%) (Auto) 0.5 0.0-12.0 % Eosinophils (%) (Auto) 0.1 0.0-7.0 % Basophils (%) (Auto) 0.0 0.0-2.0 % Neutrophils # (Auto) 3.8 1.6-8.6 10 ^3/uL Lymphocytes # (Auto) 2.2 0.4-5.4 10 ^3/uL Monocytes # (Auto) 0 0-1.3 10 ^3/uL Eosinophils # (Auto) 0 0-0.8 10 ^3/uL Basophils # (Auto) 0 0-0.2 10 ^3/uL Nucleated Red Blood Cells 0.0 % Reticulocyte Count (auto) 0.41 L 0.5-1.5 % Sodium Level 139 136-145 mmol/L Potassium Level 3.5 3.5-5.1 mmol/L Chloride Level 107 98-107 mmol/L Carbon Dioxide Level 23 20-31 mmol/L Anion Gap 9 5-15 Blood Urea Nitrogen 12 9-23 mg/dL Creatinine 0.48 L 0.550-1.02 mg/dL Glomerular Filtration Rate Calc 95 >90 mL/min BUN/Creatinine Ratio 25.0 H 10.0-20.0 Serum Glucose 100 74-106 mg/dL Calcium Level 9.1 8.7-10.4 mg/dL Total Bilirubin 0.5 0.2-1.0 mg/dL Aspartate Amino Transferase (AST) 20 13-40 U/L Alanine Aminotransferase (ALT) 12 7-40 U/L Alkaline Phosphatase 66 46-116 U/L Lactate Dehydrogenase 196 120-246 U/L Total Protein 6.9 5.7-8.2 g/dL Albumin 3.7 3.2-4.8 g/dL Thyroid Stimulating Hormone (TSH) 0.69 0.55-4.78 uIU/mL Test 01/11/25 18:16 01/11/25 08:55 Range/Units Platelet Estimate Decreased Differential Total Cells Counted 100.0 100 Neutrophils % (Manual) 31 L 37.0-80.0 Band Neutrophils % (Manual) 1 Lymphocytes % (Manual) 59 H 10.0-50.0 Monocytes % (Manual) 4 0-12 Eosinophils % (Manual) 5 0-7 Basophils % (Manual) 0 0.0-2.0 Metamyelocytes % (manual) 0 Myelocytes % (Manual) 0 Promyelocytes % (Manual) 0 Blast Cells % (Manual) 0 Reactive Lymphocytes 0 Assessment/Plan Plan Patient is a 79-year-old female who presented to the hospital with sore throat and white lesions in the mouth. It seems that the patient presented few days back and then again to emergency room. She was found to have thrombocytopenia and has received platelet transfusion since admission. It is of note that the patient does have old history of coronary artery disease and has had [place]CA in 2000 [place]in [facility] She has been kept on aspirin with Plavix as outpatient since then. She denies any recent chest pains or dyspnea on exertion. Primary team requested for Cardiology consultation as they have decided to hold back on anticoagulation/antiplatelet therapy. Patient actually came to our office back in 2021 and was lost to follow-up since then. She denies any leg swellings. She denies palpitations. It is of note that she is active cigarette smoker and does carry old history of possible COPD. She does complain of chronic cough. Elderly female. Not in acute distress. Lying flat in bed. No JVD. Mucosa is pink and wet. No carotid bruit. Not using accessory muscles of breathing. Scattered rhonchi in the lungs is heard. Cardiac: Regular, no thrill/gallop. Systolic murmur 2/6 in the apex is heard. Abdomen is soft. Bowel sound is posi tive. There is no gross mass/hepatomegaly. There is no peripheral edema. Dorsalis pedis is 2+ bilateral. She does have finger changes in favor of typical rheumatoid arthritis sequela Past medical history includes coronary artery disease and status post PCI in 2000 (at [facility] hyperlipidemia, rheumatoid arthritis, Crohn's disease, chronic low back pain and COPD. She has had back surgeries before. She smokes cigarettes for many decades. She has been kept on dual antiplatelet therapy (aspirin/Plavix) for long-term. Echocardiogram of May 17, 2022 (performed in the office) revealed ejection fraction of 65-70%, trace MR/TR/PI and right ventricular systolic pressure of less than 35 mm Hg. Platelet: 18 - 22 - 18 WBC: 4.9 - 2.7 - 6.1 Hemoglobin: 12.7 - 12.5 - 11.6 Creatinine: 0.66 - 0.48 Potassium: 3.6 - 3.5 TSH: 0.69 Chest x-ray revealed: IMPRESSION: No acute cardiopulmonary disease. Patient is a 79-year-old female who presented with throat pain and thrombocytopenia. Has received platelet transfusion since admission. Presentation questions component of the pharyngitis. Does have baseline history of Crohn disease/rheumatoid arthritis. Is on methotrexate as outpatient. Could the above have contributed to the clinical picture with significant thrombocytopenia? Patient does have baseline history of old coronary artery disease for which had PTCA in 2000. Cardiac-galan has been nonsymptomatic. Has been kept on dual antiplatelet therapy as outpatient. As it has been many years since cardiac stenting, dual antiplatelet therapy can be held this point. Presentation is not considered acute coronary syndrome. Clinically, no sign for acute heart failure. Patient does smoke and has been smoking for long time. History questions component of COPD/emphysema. Thrombocytopenia Pneumonitis Pharyngitis History of coronary artery disease, status post PCI, many years ago Hyperlipidemia Rheumatoid arthritis Crohn's disease COPD Active cigarette smoker Cardiac suggestion for management: Manage on telemetry Request for EKG Request for Echocardiogram Follow-up electrolytes and kidney function tests and correct abnormalities. You can hold antiplatelet therapy for now Consider Hematology/Oncology evaluation for low platelet Further evaluation and management depends on the above and clinical course Thank you for consultation A total of 75 minutes was spent reviewing the patient record, examining the patient, making a diagnostic and therapeutic plan, discussing this plan with medical personnel, following up on diagnostic studies and following the patient for clinical stability excluding any and all procedures. At least 50% of this time was spent in direct, [id number] contact. Thank you for allowing me to participate in this patient's care. Further recommendations will depend on patient's clinical course. Please do not hesitate to contact me if you have any questions or concerns. This medical document was created using electronic medical record system with [employer] computerized dictation system. Although this document has been carefully reviewed, there may still be some phonetic and typographical errors. These areas are purely typographical due to the imperfection of the software programs, and do not reflect any compromise in the patient's medical care Plan discussed with: Patient, Other (Nurse) PIPPA EDWARDS MD Jan 12, 2025 17:57
--- NOTE | 2025-01-12 19:16 | DVHCONRES ---
Date Seen: Jan 12, 2025 Resident Creating Document: GISELA BAUER RESIDENT Referring Physician MELIDA GROSSMAN NP Reason for Consultation THROAT PAIN History of Present Illness 79-year-old female with past medical history of rheumatoid arthritis, Crohn's disease, coronary artery disease status post PCI stent in his complaints of throat pain and lesions around the mouth. Patient was here last test in the ER where she was presenting with similar complaints and was diagnosed with possible herpangina was given,...... , patient mentioned that her symptoms did not improve and sewed pain worsened and presented yesterday again with the similar complaints. Patient was admitted [place] [address]. Patient is denying any complaints of fever, nausea, vomiting, chills, rash at any other site, skin lesion suddenly other side. Denied any recent travel, is not sexually active. Denied similar lesions/rash in the past. She denied any chest pain, shortness of breath, orthopnea, PND, headache, seizures. Past medical history rheumatoid arthritis, Crohn's disease, coronary artery disease status post PCI stent Medication history Aspirin, Plavix, statins Methotrexate( six tablets weekly) with folic acid Was taking Humira for two years and was stopped one year ago by pin drafter Social History Active smoker Denied alcohol, marijuana, any other drugs. Allergies: Coded Allergies: NO KNOWN ALLERGIES (Unverified , 03/05/24) Home Meds Active Scripts Lidocaine Hcl (Lidocaine Viscous) 2 % Deborah, 10 ML PO Q6HR for 7 Days, #280 ML Prov:ALEX GROSSMAN LOCK ASSEMBLER 01/20/25 Alum & Mag Hydrox-Simethicone (Magic Mouthwash) 80 Ml Ss, 80 ML MT TIDPRN PRN for 10 Days, #200 ML 0 Refills Prov:LB FONSECA LOCK ASSEMBLER 01/07/25 Reported Medications Hydrocodone-Acetaminophen (Hydrocodone Bitartrate/AC 10-325 mg) 1 Tab Tab, 1 TAB PO [id number] for pain, TAB 01/12/25 Cholecalciferol (VITAMIN D3) 2,000 Unit Tab, 1 TAB PO DAILY, #30 TAB 5 Refills 01/12/25 Metoprolol Tartrate (Metoprolol Tartrate) 25 Mg Tab, 25 MG PO BID for 30 Days, MG 01/12/25 Gabapentin (Gabapentin) 800 Mg Tab, 800 MG PO TID, TAB 01/12/25 Folic Acid (Folic Acid) 1 Mg Tab, 1 MG PO DAILY for 30 Days, MG 01/12/25 Oxybutynin Chloride (Oxybutynin Chloride) 2.5 Mg Tab, 10 MG PO, TAB 01/11/25 Pantoprazole Sodium Sesquihydr (Pantoprazole Sodium) 40 Mg Tab, 40 MG PO, TAB 01/11/25 Atorvastatin Calcium (ATORVASTATIN CALCIUM) 10 Mg Tab, 1 TAB PO DAILY, #30 TAB 5 Refills 01/11/25 Methotrexate (Methotrexate) 2.5 Mg Tab, 2.5 MG PO, MG 01/11/25 Gabapentin (Gabapentin) 600 Mg Tab, 600 MG PO TID for 30 Days, MG 01/11/25 Current Medications Current Medications Medications (Trade) Dose Ordered Sig/Damian Route PRN Reason Start Time Stop Time Status Last Admin Trazodone HCl (Desyrel) 50 mg HS PRN PO FOR INSOMNIA 01/12/25 00:45 01/12/25 01:25 Review of Systems As described in the HPI Vital Signs Vital Signs Date Time Temp Pulse Resp B/P (MAP) Pulse Ox O2 Delivery O2 Flow Rate FiO2 01/12/25 17:15 98.7 90 16 162/81 98.7 01/12/25 17:00 96 01/12/25 08:15 Room Air* 0 21 Physical Exam Examination General Appearance: Alert, Oriented X3, Cooperative, No acute distress Respiratory: Clear to auscultation, Normal air movement Cardiovascular: Regular rate, Normal S1, Normal S2 Abdominal: Normal bowel sounds Extremities: No cyanosis, No edema, Normal pulses, No tenderness/swelling Skin: No rashes, No breakdown Neuro: Normal speech and tone Oral cavity examination: Mild erythema of the posterior pharyngeal wall, small 2-3 whitish plaques on mucosa near upper moles on the left Labs/Diagnostic Data Labs Test 01/12/25 15:49 01/12/25 13:57 01/12/25 05:39 01/12/25 05:29 Range/Units Prothrombin Time 11.9 H 9.3-11.8 sec Prothrombin Time INR 1.14 0.9-1.15 Fibrinogen 276 177-375 mg/dL Vitamin B12 Level 492 211-911 pg/mL Folic Acid 15.92 >5.38 ng/mL Urine Color Light-yellow Yellow Urine Clarity Clear Clear Urine pH 6.0 5.0-9.0 Urine Specific [place] 1.010 1.001-1.035 Urine Protein Negative Negative Urine Ketones Negative Negative Urine Blood Trace H Negative /uL Urine Nitrite Negative Negative Urine Bilirubin Negative Negative Urine Urobilinogen Normal Negative mg/dL Urine Leukocyte Esterase Negative Negative /uL Urine RBC 2 0 - 4 /hpf Urine Microscopic WBC < 1 0-5 /HPF Urine Squamous Epithelial Cells None seen <5 /hpf Urine Bacteria None seen None Seen /hpf Urine Glucose Normal Normal mg/dL White Blood Count 6.1 # 4.4-10.8 10^3/uL Red Blood Count 3.62 L 4.0-5.20 10^6/uL Hemoglobin 11.6 L 12.2-16.2 g/dL Hematocrit 34.5 L 36.0-46.0 % Mean Corpuscular Volume 95.4 80.0-100.0 fL Mean Corpuscular Hemoglobin 32.1 H 28.0-32.0 pg Mean Corpuscular Hemoglobin Concent 33.6 32.0-36.0 g/dL Red Cell Distribution Width 14.8 H 11.8-14.3 % Platelet Count 18 *L 140-450 10^3/uL Mean Platelet Volume 8.8 6.9-10.8 fL Neutrophils (%) (Auto) 63.0 37.0-80.0 % Lymphocytes (%) (Auto) 36.4 10.0-50.0 % Monocytes (%) (Auto) 0.5 0.0-12.0 % Eosinophils (%) (Auto) 0.1 0.0-7.0 % Basophils (%) (Auto) 0.0 0.0-2.0 % Neutrophils # (Auto) 3.8 1.6-8.6 10 ^3/uL Lymphocytes # (Auto) 2.2 0.4-5.4 10 ^3/uL Monocytes # (Auto) 0 0-1.3 10 ^3/uL Eosinophils # (Auto) 0 0-0.8 10 ^3/uL Basophils # (Auto) 0 0-0.2 10 ^3/uL Nucleated Red Blood Cells 0.0 % Reticulocyte Count (auto) 0.41 L 0.5-1.5 % Sodium Level 139 136-145 mmol/L Potassium Level 3.5 3.5-5.1 mmol/L Chloride Level 107 98-107 mmol/L Carbon Dioxide Level 23 20-31 mmol/L Anion Gap 9 5-15 Blood Urea Nitrogen 12 9-23 mg/dL Creatinine 0.48 L 0.550-1.02 mg/dL Glomerular Filtration Rate Calc 95 >90 mL/min BUN/Creatinine Ratio 25.0 H 10.0-20.0 Serum Glucose 100 74-106 mg/dL Calcium Level 9.1 8.7-10.4 mg/dL Total Bilirubin 0.5 0.2-1.0 mg/dL Aspartate Amino Transferase (AST) 20 13-40 U/L Alanine Aminotransferase (ALT) 12 7-40 U/L Alkaline Phosphatase 66 46-116 U/L Lactate Dehydrogenase 196 120-246 U/L Total Protein 6.9 5.7-8.2 g/dL Albumin 3.7 3.2-4.8 g/dL Thyroid Stimulating Hormone (TSH) 0.69 0.55-4.78 uIU/mL Test 01/11/25 18:16 01/11/25 08:55 Range/Units Platelet Estimate Decreased Differential Total Cells Counted 100.0 100 Neutrophils % (Manual) 31 L 37.0-80.0 Band Neutrophils % (Manual) 1 Lymphocytes % (Manual) 59 H 10.0-50.0 Monocytes % (Manual) 4 0-12 Eosinophils % (Manual) 5 0-7 Basophils % (Manual) 0 0.0-2.0 Metamyelocytes % (manual) 0 Myelocytes % (Manual) 0 Promyelocytes % (Manual) 0 Blast Cells % (Manual) 0 Reactive Lymphocytes 0 Assessment INFECTIOUS DISEASE CONSULT Plan/Recommendation Assessment/plan # mucositis with pharyngitis likely due to methotrexate use with possible inadequate dose of folic acid, ? Crohn's disease, other causes not ruled out yet. # pancytopenia, pending evaluation # history of coronary artery disease status post PCI # history of rheumatoid arthritis and Crohn disease -Currently on methotrexate, was previously on Humira Plan We can continue Nystatin switch and swallow considering patient mentioned improvement in her symptoms after nystatin No Recommendation for starting systemic antibiotics. We will order folic acid levels Order Hepatitis-B, C, HIV panel, CMV, Parvo-virus B19 for infectious workup for pancytopenia Rheumatology consult for management for RA and Crohn's disease. Case discussion with Dr BARNES ----Addendum Dr. Dick Barnes Patient is a 79 year old female with a past medical history of rheumatid arthritis , Crohn disease , coronary artery disease . Status Post PCI , who presents with throat pain and lesions in the mouth. Patient says that she was recently seen in the ED due to herpangina. Was given acyclovir , however is not responding and now has low platelet count and leukopenia and oral ulcers . Denies any sexual activity , denies any recent sitcontex and has had the shingles vaccine . On Physical exam patient has not necessarily oral ulcer but has small plaques on the posterior surface of the phalangeal wall . Endorses difficulty swallowing. Assessment : Patient has mucositis , likely related to methotrexate and has not followed up with a pin drafter in over a year and is currently taking an acceptable dose but unknown levels of folic acid . use swish and swallow while oralplex arent consistent with fungal infection , ewa esophagitis can be difficult to distinguish without a biopsy - recommend patient be seen my rheumatology to further evaluate current regimen as well as alternative treatment and consider alternative diagnosis such as Crohn disease , pancytopenia , mucositis - thrombocytopenia lends itself to bone marrow infiltration which can be seen in cmv disease , EPV disease , and HIV . would test for these viral infection , may need to encourage to treat at this time - recommend GI consultation for potential endoscopy - test for RSV 19 - Folic acid levels do not reflect risk for mucositis therefore reasonable to hold methotrexate in this setting - Recommend checking folic acid levels to determine if patient has any deficiencies Have seen and reviewed Dr. Bauer notes. Agree with his subjective , physical exam , assessment and plan except as noted in my addendum. Plan discussed with: Patient, Other GISELA BAUER RESIDENT Jan 12, 2025 19:16 DICK BARNES MD Jan 28, 2025 07:29
[2025-01-13 01:00] VITALS: BP 158/92; PULSE 80; RESP 18; TEMP 98; O2SAT 95
--- NOTE | 2025-01-13 06:57 | DVHPN2 ---
Progress Note - Dictate Date Seen: Jan 13, 2025 Medical Necessity Reason Pt with a Central, PICC or Fol: No vital signs Vital Sign Date Time Temp Pulse Resp B/P (MAP) Pulse Ox O2 Delivery O2 Flow Rate FiO2 01/13/25 01:00 98.0 80 18 158/92 (114) 95 98.0 01/12/25 20:00 Room Air* 0 21 Total Intake and Output 01/12/25 01/12/25 01/13/25 15:00 23:00 07:00 Intake Total 563 ml 300 ml Balance 563 ml 300 ml medications Current Medications Medications Dose Ordered Sig/Damian Route Start Time Stop Time Status Last Admin Dose Admin Acetaminophen/ Hydrocodone Bitart 1 tab Q4HP PRN PO 01/11/25 10:45 01/13/25 00:26 1 TAB Ondansetron HCl 4 mg Q4HP PRN IV 01/11/25 10:45 Docusate Sodium 100 mg BIDPRN PRN PO 01/11/25 10:45 Acetaminophen 650 mg Q6HP PRN PO 01/11/25 10:45 Morphine Sulfate 2 mg Q4HPRN PRN IV 01/11/25 10:45 Lidocaine HCl 10 ml Q6HR PO 01/11/25 12:00 01/13/25 06:52 10 ML Nystatin 5 ml Q6HR MT 01/11/25 12:00 01/13/25 06:52 5 ML Trazodone HCl 50 mg HS PRN PO 01/12/25 00:45 01/13/25 00:25 50 MG laboratory and microbiology Laboratory Tests 01/12/25 05:29 Test 01/12/25 05:29 Range/Units Serum Glucose 100 74-106 mg/dL Assessment/Plan Patient is a 79-year-old female who presented to the hospital with sore throat and white lesions in the mouth. It seems that the patient presented few days back and then again to emergency room. She was found to have thrombocytopenia and has received platelet transfusion since admission. It is of note that the patient does have old history of coronary artery disease and has [place] She has been kept on aspirin with Plavix as outpatient since then. She denies any recent chest pains or dyspnea on exertion. Primary team requested for Cardiology consultation as they have decided to hold back on anticoagulation/antiplatelet therapy. Patient actually came to our office back in 2021 and was lost to follow-up since then. She denies any leg swellings. She denies palpitations. It is of note that she is active cigarette smoker and does carry old history of possible COPD. She does complain of chronic cough. Elderly female. Not in acute distress. Lying flat in bed. No JVD. Mucosa is pink and wet. No carotid bruit. Not using accessory muscles of breathing. Scattered rhonchi in the lungs is heard. Cardiac: Regular, no thrill/gallop. Systolic murmur 2/6 in the apex is heard. Abdomen is soft. Bowel sound is positive. There is no gross mass/hepatomegaly. There is no peripheral edema. Dorsalis pedis is 2+ bilateral. She does have finger changes in favor of typical rheumatoid arthritis sequela Past medical history includes coronary artery disease and status post PCI in 2000 ([place] [facility] [place] hyperlipidemia, rheumatoid arthritis, Crohn's disease, chronic low back pain and COPD. She has had back surgeries before. She smokes cigarettes for many decades. She has been kept on dual antiplatelet therapy (aspirin/Plavix) for long-term. Echocardiogram of May 17, 2022 (performed in the office) revealed ejection fraction of 65-70%, trace MR/TR/PI and right ventricular systolic pressure of less than 35 mm Hg. Platelet: 18 - 22 - 18 WBC: 4.9 - 2.7 - 6.1 Hemoglobin: 12.7 - 12.5 - 11.6 Creatinine: 0.66 - 0.48 Potassium: 3.6 - 3.5 TSH: 0.69 Chest x-ray revealed: IMPRESSION: No acute cardiopulmonary disease. EKG: NSR, non-specific ST T changes Tele: sinus rhythm Patient is a 79-year-old female who presented with throat pain and thrombocytopenia. Has received platelet transfusion since admission. Presentation questions component of the pharyngitis. Does have baseline history of Crohn disease/rheumatoid arthritis. Is on methotrexate as outpatient. Could the above have contributed to the clinical picture with significant thrombocytopenia? Patient does have baseline history of old coronary artery disease for which had PTCA in 2000. Cardiac-galan has been nonsymptomatic. Has been kept on dual antiplatelet therapy as outpatient. As it has been many years since cardiac stenting, dual antiplatelet therapy can be held this point. Presentation is not considered acute coronary syndrome. Clinically, no sign for acute heart failure. Patient does smoke and has been smoking for long time. History questions component of COPD/emphysema. ID is consulted Thrombocytopenia Pneumonitis Pharyngitis Pancytopenia History of coronary artery disease, status post PCI, many years ago Hyperlipidemia Rheumatoid arthritis Crohn's disease COPD Active cigarette smoker Cardiac suggestion for management: Manage on telemetry Request for Echocardiogram Follow-up electrolytes and kidney function tests and correct abnormalities. You can hold antiplatelet therapy for now Consider Hematology/Oncology evaluation for low platelet Further evaluation and management depends on the above and clinical course A total of 55 minutes was spent reviewing the patient record, examining the patient, making a diagnostic and therapeutic plan, discussing this plan with medical personnel, following up on diagnostic studies and following the patient for clinical stability excluding any and all procedures. At least 50% of this time was spent in direct, [id number] contact. Thank you for allowing me to participate in this patient's care. Further recommendations will depend on patient's clinical course. Please do not hesitate to contact me if you have any questions or concerns. This medical document was created using electronic medical record system with [employer] computerized dictation system. Although this document has been carefully reviewed, there may still be some phonetic and typographical errors. These areas are purely typographical due to the imperfection of the software programs, and do not reflect any compromise in the patient's medical care Plan discussed with: Patient, Other (nurse) CC Plasma Assessment Blood Product Administration S: [id number] PIPPA EDWARDS MD Jan 13, 2025 06:57
[2025-01-13 09:00] VITALS: BP 124/71; PULSE 80; RESP 17; TEMP 98; O2SAT 92
[2025-01-13 10:18] LABS: Hepatitis B Surface Antigen Negative (Negative)
--- NOTE | 2025-01-13 10:27 | ECG ---
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
[2025-01-13 10:42] LABS: Hepatitis A Ab IgM Negative; Hepatitis B Core IgM Negative (Negative); Hepatitis C Antibody Negative (Negative)
[2025-01-13 12:37] VITALS: BP 132/78; PULSE 102; RESP 18; TEMP 98.2; O2SAT 94
--- NOTE | 2025-01-13 13:01 | DVHPN2 ---
Progress Note - Dictate Date Seen: Jan 13, 2025 Medical Necessity Reason Pt with a Central, PICC or Fol: No vital signs Vital Sign Date Time Temp Pulse Resp B/P (MAP) Pulse Ox O2 Delivery O2 Flow Rate FiO2 01/13/25 12:37 98.2 102 18 132/78 (96) 94 98.2 01/13/25 08:00 Room Air* 0 21 Total Intake and Output 01/12/25 01/12/25 01/13/25 15:00 23:00 07:00 Intake Total 563 ml 300 ml Balance 563 ml 300 ml medications Current Medications Medications Dose Ordered Sig/Damian Route Start Time Stop Time Status Last Admin Dose Admin Acetaminophen/ Hydrocodone Bitart 1 tab Q4HP PRN PO 01/11/25 10:45 01/13/25 00:26 1 TAB Ondansetron HCl 4 mg Q4HP PRN IV 01/11/25 10:45 Docusate Sodium 100 mg BIDPRN PRN PO 01/11/25 10:45 Acetaminophen 650 mg Q6HP PRN PO 01/11/25 10:45 Morphine Sulfate 2 mg Q4HPRN PRN IV 01/11/25 10:45 Lidocaine HCl 10 ml Q6HR PO 01/11/25 12:00 01/13/25 11:48 10 ML Nystatin 5 ml Q6HR MT 01/11/25 12:00 01/13/25 11:48 5 ML Trazodone HCl 50 mg HS PRN PO 01/12/25 00:45 01/13/25 00:25 50 MG objective General Appearance: alert, no distress HEENT: EOMI, PERRLA, normal external inspect of ears, no icterus, no nasal drainage Neck: no carotid bruit, no jugular venous distention (JVD), no lymphadenopathy Chest: normal thorax Respiratory: clear to auscultation, normal air movement Cardiovascular: regular rate and rhythm, no diastolic murmur, no jugular venous distention (JVD), no rub, no systolic murmur Abdominal: soft, no hepatomegaly, no mass, no splenomegaly, no tenderness Musculoskeletal: no joint tenderness, no swelling Extremities: normal pulses, no calf tenderness, no clubbing, no cyanosis, no edema Skin: no bruising, no jaundice, no rash Neurological: alert, No focal deficit laboratory and microbiology Laboratory Tests 01/12/25 05:29 Test 01/12/25 05:29 Range/Units Serum Glucose 100 74-106 mg/dL Problem List 1. Oral sores Monitor, IV abx, Lidocaine swish and swallow, Nystatin swish and spit 2. Thrombocytopenia Monitor, transfuse platelets 3. Smoker Monitor, smoking cessation education 4. Pharyngitis Monitor, throat swab Assessment/Plan Subjective Patient is awake and alert. Objective I spoke with patient and patient's at bedside. Patient has severe thrombocytopenia. Current CBC is pending. Patient has received two units of platelets. Patient was previously on aspirin and Plavix along with methotrexate 20mg weekly. Patient states she has been on those medications for many years. She appears to be getting labs yearly outpatient. On her last CBC at her PCP doctor Charlene's office, platelet count was over 400 last month. Per Cardiology, Plavix will be discontinued outpatient. Continue to hold anticoagulation at this time. Monitor for any signs or symptoms of bleeding. Plan Monitor repeat labs. Hold anticoagulation. Continue SCD's. Patient will need referral for outpatient rheumatology. Send out labs are pending. Plan discussed with: Patient, Other CC Plasma Assessment Blood Product Administration S: [id number] ALEX GROSSMAN NP Jan 13, 2025 13:01
[2025-01-13 13:02] LABS: Hemoglobin 12.6 g/dL (12.2-16.2); White Blood Cell 3.2 10^3/uL (4.4-10.8)
[2025-01-13 13:03] LABS: Hematocrit 37.5 % (36.0-46.0); Mean Corpuscular Hemoglobin 32.1 pg (28.0-32.0); Mean Corpuscular Hgb Conc. 33.7 g/dL (32.0-36.0); Mean Corpuscular Volume 95.3 fL (80.0-100.0); Platelet Count (auto) 42 10^3/uL (140-450); Red Blood Cells 3.94 10^6/uL (4.0-5.20); Red Cell Distribution Width 14.8 % (11.8-14.3)
[2025-01-13 13:06] LABS: Band Neutrophils % (manual) 0; Basophils % (manual) 0 (0.0-2.0); Blast Cells 0; Metamyelocytes % 0; Myelocytes % 0; Promyelocytes % 0
[2025-01-13] MEDS: GABAPENTIN 400 MG CAP PO SCH (14:12)
[2025-01-13 14:21] LABS: Eosinophils % (manual) 2 (0-7); Lymphocytes % (manual) 62 (10.0-50.0); Monocytes % (manual) 1 (0-12); Platelet Estimate Decreased; Reactive Lymphocytes 6
[2025-01-13 14:22] LABS: Anisocytosis Slight
[2025-01-13] MEDS: OXYBUTYNIN CHL 5 MG TAB PO SCH (16:28)
[2025-01-13 17:00] VITALS: BP 146/71; PULSE 77; RESP 18; TEMP 98.1; O2SAT 99
--- NOTE | 2025-01-13 18:09 | DVHPN2 ---
Consult Progress Note Date Seen: Jan 13, 2025 Subjective Patient reports: No new complaints, Feels better Objective vital signs Vital Sign Date Time Temp Pulse Resp B/P (MAP) Pulse Ox O2 Delivery O2 Flow Rate FiO2 01/13/25 17:00 98.1 77 18 146/71 (96) 99 98.1 01/13/25 08:00 Room Air* 0 21 Total Intake and Output 01/12/25 01/12/25 01/13/25 15:00 23:00 07:00 Intake Total 563 ml 300 ml Balance 563 ml 300 ml medications Current Medications Medications Dose Ordered Sig/Damian Route Start Time Stop Time Status Last Admin Dose Admin Acetaminophen/ Hydrocodone Bitart 1 tab Q4HP PRN PO 01/11/25 10:45 01/13/25 00:26 1 TAB Ondansetron HCl 4 mg Q4HP PRN IV 01/11/25 10:45 Docusate Sodium 100 mg BIDPRN PRN PO 01/11/25 10:45 Acetaminophen 650 mg Q6HP PRN PO 01/11/25 10:45 Morphine Sulfate 2 mg Q4HPRN PRN IV 01/11/25 10:45 Lidocaine HCl 10 ml Q6HR PO 01/11/25 12:00 01/13/25 17:51 10 ML Nystatin 5 ml Q6HR MT 01/11/25 12:00 01/13/25 17:51 5 ML Trazodone HCl 50 mg HS PRN PO 01/12/25 00:45 01/13/25 00:25 50 MG Metoprolol Tartrate 25 mg BID PO 01/13/25 22:00 Atorvastatin Calcium 10 mg HS PO 01/13/25 22:00 Cholecalciferol 2,000 unit DAILY PO 01/14/25 10:00 Folic Acid 1 mg DAILY PO 01/14/25 10:00 Gabapentin 800 mg TID PO 01/13/25 14:12 Oxybutynin Chloride 10 mg BID PO 01/13/25 13:45 01/13/25 16:28 10 MG laboratory and microbiology Laboratory Tests 01/13/25 10:40 01/12/25 05:29 Test 01/12/25 05:29 Range/Units Serum Glucose 100 74-106 mg/dL Problem List/Assessment/Plan Problem List/Assessment/Plan INFECTIOUS DISEASE CONSULT Plan/Recommendation Assessment/plan # mucositis with pharyngitis likely due to methotrexate use with possible inadequate dose of folic acid, ? Crohn's disease, other causes not ruled out yet. # pancytopenia, pending evaluation -possibly due to Methotrexate use # history of coronary artery disease status post PCI # history of rheumatoid arthritis and Crohn disease -Currently on methotrexate, was previously on Humira Plan We can continue Nystatin switch and swallow considering patient mentioned improvement in her symptoms after nystatin No Recommendation for starting systemic antibiotics. We will order folic acid levels Order Hepatitis-B, C, HIV panel, CMV, Parvo-virus B19 for infectious workup for pancytopenia, AWAITING RESULTS Rheumatology consult for management for RA and Crohn's disease. We recommend holding methotrexate till rheumatology evaluate the patient. ( mucositis and pancytopenia possibly caused by methotrexate use ) Case discussion with Dr Willingham - ---Addendum Dr. Dick Willingham Patient is a 79 year old female with a past medical history of rheumatid arthritis , Crohn disease , coronary artery disease . Status Post PCI , who presents with throat pain and lesions in the mouth. Patient says that she was recently seen in the ED due to herpangina. Was given acyclovir , however is not responding and now has low platelet count and leukopenia and oral ulcers . Denies any sexual activity , denies any recent sitcontex and has had the shingles vaccine . On Physical exam patient has not necessarily oral ulcer but has small plaques on the posterior surface of the phalangeal wall . Endorses difficulty swallowing. Assessment : Patient has mucositis , likely related to methotrexate and has not followed up with a lead front end developer in over a year and is currently taking an acceptable dose but unknown levels of folic acid . use swish and swallow while oralplex arent consistent with fungal infection , ewa esophagitis can be difficult to distinguish without a biopsy /: patient feels better with no new complaints and tolerating some PO intake . Methotrexate has been held, folic acid levels are normal . Awaiting results of serologies to assess for potential viral infiltration of the bone marrow . remains leukopenic and it is worsening but no new fevers . methotrexate can also cause pancytopenia Plan: - recommend patient be seen my rheumatology to further evaluate current regimen as well as alternative treatment and consider alternative diagnosis such as Crohn disease , pancytopenia , mucositis - thrombocytopenia lends itself to bone marrow infiltration which can be seen in cmv disease , EPV disease , and HIV . would test for these viral infection , may need to encourage to treat at this time - recommend GI consultation for potential endoscopy - test for RSV 19 - Folic acid levels do not reflect risk for mucositis therefore reasonable to hold methotrexate in this setting - Recommend checking folic acid levels to determine if patient has any deficiencies Have seen and reviewed Dr. Bauer notes. Agree with his subjective , physical exam , assessment and plan except as noted in my addendum. Plan discussed with: Patient CC Plasma Assessment Blood Product Administration S: [id number] GISELA BAUER Jan 13, 2025 18:09 DICK WILLINGHAM MD Jan 28, 2025 07:33
[2025-01-13 20:00] VITALS: PULSE 83; RESP 18; O2SAT 94
[2025-01-13 21:00] VITALS: BP 150/92; PULSE 83; RESP 18; TEMP 98.1; O2SAT 94
[2025-01-13] MEDS: METOPROLOL TARTRATE 25 MG TAB PO SCH (22:00)
[2025-01-13] MEDS: ATORVASTATIN 20 MG TAB PO SCH (22:20)
[2025-01-14] VITALS (7 sets, daily range): BP systolic 130–163; BP diastolic 62–104; PULSE 68–98; RESP 17–20; TEMP 97.6–98.5; O2SAT 94–97
[2025-01-14 06:03] LABS: White Blood Cell 3.1 10^3/uL (4.4-10.8)
[2025-01-14 06:06] LABS: Hemoglobin 11.8 g/dL (12.2-16.2); Mean Corpuscular Hemoglobin 32.5 pg (28.0-32.0); Mean Corpuscular Hgb Conc. 34.6 g/dL (32.0-36.0); Mean Corpuscular Volume 93.9 fL (80.0-100.0); Platelet Count (auto) 33 10^3/uL (140-450); Red Blood Cells 3.63 10^6/uL (4.0-5.20)
[2025-01-14 06:20] LABS: Calcium 9.5 mg/dL (8.7-10.4); Sodium 141 mmol/L (136-145)
[2025-01-14 06:21] LABS: Anion Gap 9 (5-15); Carbon Dioxide 24 mmol/L (20-31)
[2025-01-14 06:24] LABS: Band Neutrophils % (manual) 0; Basophils % (manual) 0 (0.0-2.0); Blast Cells 0; Metamyelocytes % 0; Myelocytes % 0; Promyelocytes % 0
[2025-01-14 06:25] LABS: Chloride 108 mmol/L (98-107); Potassium 3.4 mmol/L (3.5-5.1)
[2025-01-14 06:26] LABS: BUN/Creatinine Ratio 19.2 (10.0-20.0); Blood Urea Nitrogen 10 mg/dL (9-23); Glucose 97 mg/dL (74-106)
[2025-01-14 06:27] LABS: Magnesium 1.8 mg/dL (1.6-2.6)
[2025-01-14 07:11] LABS: Eosinophils % (manual) 8 (0-7); Lymphocytes % (manual) 79 (10.0-50.0); Monocytes % (manual) 1 (0-12); Platelet Estimate Decreased; Reactive Lymphocytes 2
--- NOTE | 2025-01-14 07:36 | DVHSR ---
APPROVED REPORT EXAM: Two-dimensional and M-mode echocardiogram with Doppler and color Doppler. Blood Pressure: 158/92 mmHg INDICATION Ejection Fraction RISK FACTORS Height: 5'4", Weight: 119 DIMENSIONS LVDd3.5 (3.8-5.7cm)LA (2D)3.1 (1.9-4.0cm)Aortic Root (2.0-3.7cm) LVDs2.4 (2.5-4.0cm)LA (MM) (1.9-4.0cm)Aortic Cusp Exc (1.5-2.0cm) EF (%) 60.0 (55-70%)Rt. Atrium3.5 (1.9-4.0cm)Asc. Aorta cm IVSd1.1 (0.7-1.1cm)RV (D) (1.8-2.4cm) Mitral Valve MitralMitral Stenosis E wave0.63m/sMV Mean GR.mmHg A wave1.02m/sMV Peak GR.mmHg E/A ratio0.62D MVAcm2 DECEL [id number] 1/2 Timems Aortic Valve Aortic ValveAortic Stenosis V10.99m/Michael Mean GR.3mmHg V21.02m/Michael Peak GR.4mmHg LVOT Diameter2.0 (1.8-2.4cm)Doppler AVA3.05cm2 Other Information Quality : Technically LimitedRhythm : Technically limited study due to body habitus and pt coughing. Conclusion Technically difficult study secondary to poor acoustic windows. Left ventricle: Left ventricle was normal-sized. Left ventricular systolic function was hyperdynami c. LVEF was around 71%. There was no gross wall motion abnormality. Right ventricle was normal-sized with normal systolic function. Both atria were normal-sized. Aortic valve was not well visualized. There was no aortic insufficiency/stenosis. There was trace m itral and tricuspid regurgitation. Pulmonary valve was not visualized. As there was no good tricuspid regurgitation jet, right ventricular systolic pressure could not be es timated. There was no pericardial effusion. IVC was not visualized.
--- NOTE | 2025-01-14 07:38 | DVHPN2 ---
Progress Note - Dictate Date Seen: Jan 14, 2025 Medical Necessity Reason Pt with a Central, PICC or Fol: No vital signs Vital Sign Date Time Temp Pulse Resp B/P (MAP) Pulse Ox O2 Delivery O2 Flow Rate FiO2 01/14/25 05:00 98.5 79 18 133/72 (92) 94 98.5 01/13/25 20:00 Room Air* 0 21 Total Intake and Output 01/13/25 01/13/25 01/14/25 15:00 23:00 07:00 Intake Total 400 ml 500 ml Balance 400 ml 500 ml medications Current Medications Medications Dose Ordered Sig/Damian Route Start Time Stop Time Status Last Admin Dose Admin Acetaminophen/ Hydrocodone Bitart 1 tab Q4HP PRN PO 01/11/25 10:45 01/13/25 20:11 1 TAB Ondansetron HCl 4 mg Q4HP PRN IV 01/11/25 10:45 Docusate Sodium 100 mg BIDPRN PRN PO 01/11/25 10:45 Acetaminophen 650 mg Q6HP PRN PO 01/11/25 10:45 Morphine Sulfate 2 mg Q4HPRN PRN IV 01/11/25 10:45 Lidocaine HCl 10 ml Q6HR PO 01/11/25 12:00 01/14/25 05:30 10 ML Nystatin 5 ml Q6HR MT 01/11/25 12:00 01/14/25 05:30 5 ML Trazodone HCl 50 mg HS PRN PO 01/12/25 00:45 01/13/25 22:46 50 MG Atorvastatin Calcium 10 mg HS PO 01/13/25 22:00 01/13/25 22:20 10 MG Cholecalciferol 2,000 unit DAILY PO 01/14/25 10:00 Folic Acid 1 mg DAILY PO 01/14/25 10:00 Gabapentin 800 mg TID PO 01/13/25 14:12 Oxybutynin Chloride 10 mg BID PO 01/13/25 13:45 01/13/25 22:17 10 MG Metoprolol Tartrate 25 mg BID PO 01/14/25 10:00 laboratory and microbiology Laboratory Tests 01/14/25 05:24 Test 01/14/25 05:24 Range/Units Serum Glucose 97 74-106 mg/dL Assessment/Plan Patient is a 79-year-old female who presented to the hospital with sore throat and white lesions in the mouth. It seems that the patient presented few days back and then again to emergency room. She was found to have thrombocytopenia and has received platelet transfusion since admission. It is of note that the patient does have old history of coronary artery disease and has had [place]CA in 2000 (in [facility] [facility] [place] She has been kept on aspirin with Plavix as outpatient since then. She denies any recent chest pains or dyspnea on exertion. Primary team requested for Cardiology consultation as they have decided to hold back on anticoagulation/antiplatelet therapy. Patient actually came to our office back in 2021 and was lost to follow-up since then. She denies any leg swellings. She denies palpitations. It is of note that she is active cigarette smoker and does carry old history of possible COPD. She does complain of chronic cough. Elderly female. Not in acute distress. Lying flat in bed. No JVD. Mucosa is pink and wet. No carotid bruit. Not using accessory muscles of breathing. Scattered rhonchi in the lungs is heard. Cardiac: Regular, no thrill/gallop. Systolic murmur 2/6 in the apex is heard. Abdomen is soft. Bowel sound is positive. There is no gross mass/hepatomegaly. There is no peripheral edema. Dorsalis pedis is 2+ bilateral. She does have finger changes in favor of typical rheumatoid arthritis sequela Past medical history includes coronary artery disease and status post PCI in 2000 (at [facility] [place] [place] hyperlipidemia, rheumatoid arthritis, Crohn's disease, chronic low back pain and COPD. She has had back surgeries before. She smokes cigarettes for many decades. She has been kept on dual antiplatelet therapy (aspirin/Plavix) for long-term. Echocardiogram of May 17, 2022 (performed in the office) revealed ejection fraction of 65-70%, trace MR/TR/PI and right ventricular systolic pressure of less than 35 mm Hg. Platelet: 18 - 22 - 18 - 42 - 33 WBC: 4.9 - 2.7 - 6.1 - 3.2 - 3.1 Hemoglobin: 12.7 - 12.5 - 11.6 - 12.6 - 11.8 Creatinine: 0.66 - 0.48 - 0.52 Potassium: 3.6 - 3.5 - 3.4 TSH: 0.69 Chest x-ray revealed: IMPRESSION: No acute cardiopulmonary disease. EKG: NSR, non-specific ST T changes Tele: sinus rhythm Echocardiogram revealed: Technically difficult study secondary to poor acoustic windows. Left ventricle: Left ventricle was normal-sized. Left ventricular systolic function was hyperdynamic. LVEF was around 71%. There was no gross wall motion abnormality. Right ventricle was normal-sized with normal systolic function. Both atria were normal-sized. Aortic valve was not well visualized. There was no aortic insufficiency/stenosis. There was trace mitral and tricuspid regurgitation. Pulmonary valve was not visualized. As there was no good tricuspid regurgitation jet, right ventricular systolic pressure could not be estimated. There was no pericardial effusion. IVC was not visualized. Patient is a 79-year-old female who presented with throat pain and thrombocytopenia. Has received platelet transfusion since admission. Presentation questions component of the pharyngitis. Does have baseline history of Crohn disease/rheumatoid arthritis. Is on methotrexate as outpatient. Could the above have contributed to the clinical picture with significant thrombocytopenia? Patient does have baseline history of old coronary artery disease for which had PTCA in 2000. Cardiac-galan has been nonsymptomatic. Has been kept on dual antiplatelet therapy as outpatient. As it has been many years since cardiac stenting, dual antiplatelet therapy can be held this point. Presentation is not considered acute coronary syndrome. Clinically, no sign for acute heart failure. Patient does smoke and has been smoking for long time. History questions component of COPD/emphysema. ID is consulted Thrombocytopenia Pneumonitis Pharyngitis Pancytopenia History of coronary artery disease, status post PCI, many years ago Hyperlipidemia Rheumatoid arthritis Crohn's disease COPD Active cigarette smoker Cardiac suggestion for management: Manage on telemetry Follow-up electrolytes and kidney function tests and correct abnormalities. You can hold antiplatelet therapy for now Consider Hematology/Oncology evaluation Further evaluation and management depends on the above and clinical course A total of 55 minutes was spent reviewing the patient record, examining the patient, making a diagnostic and therapeutic plan, discussing this plan with medical personnel, following up on diagnostic studies and following the patient for clinical stability excluding any and all procedures. At least 50% of this time was spent in direct, [id number] contact. Thank you for allowing me to participate in this patient's care. Further recommendations will depend on patient's clinical course. Please do not hesitate to contact me if you have any questions or concerns. This medical document was created using electronic medical record system with [employer] dictation system. Although this document has been carefully reviewed, there may still be some phonetic and typographical errors. These areas are purely typographical due to the imperfection of the software programs, and do not reflect any compromise in the patient's medical care Plan discussed with: Patient, Other (nurse) CC Plasma Assessment Blood Product Administration S: [id number] PIPPA EDWARDS MD Jan 14, 2025 07:38
[2025-01-14] MEDS: METOPROLOL TARTRATE 25 MG TAB PO SCH (10:41)
[2025-01-14] MEDS: FOLIC ACID 1 MG TAB PO SCH (10:41)
[2025-01-14] MEDS: CHOLECALCIFEROL (VITD3) 1,000UNIT=25mCg TAB PO SCH (10:42)
[2025-01-14 12:07] LABS: CMV IgG Antibody >10.00 U/mL (0.00-0.59); CMV IgM Antibody 49.4 AU/mL (0.0-29.9)
[2025-01-14 12:07] LABS: Haptoglobin 150 mg/dL (41-333)
--- NOTE | 2025-01-14 13:09 | DVHPN2 ---
Progress Note - Dictate Date Seen: Jan 14, 2025 Medical Necessity Reason Pt with a Central, PICC or Fol: No vital signs Vital Sign Date Time Temp Pulse Resp B/P (MAP) Pulse Ox O2 Delivery O2 Flow Rate FiO2 01/14/25 12:30 71 132/62 01/14/25 09:18 97.6 19 96 97.6 01/13/25 20:00 Room Air* 0 21 Total Intake and Output 01/13/25 01/13/25 01/14/25 15:00 23:00 07:00 Intake Total 400 ml 500 ml Balance 400 ml 500 ml medications Current Medications Medications Dose Ordered Sig/Damian Route Start Time Stop Time Status Last Admin Dose Admin Acetaminophen/ Hydrocodone Bitart 1 tab Q4HP PRN PO 01/11/25 10:45 01/13/25 20:11 1 TAB Ondansetron HCl 4 mg Q4HP PRN IV 01/11/25 10:45 Docusate Sodium 100 mg BIDPRN PRN PO 01/11/25 10:45 Acetaminophen 650 mg Q6HP PRN PO 01/11/25 10:45 Morphine Sulfate 2 mg Q4HPRN PRN IV 01/11/25 10:45 Lidocaine HCl 10 ml Q6HR PO 01/11/25 12:00 01/14/25 12:39 10 ML Nystatin 5 ml Q6HR MT 01/11/25 12:00 01/14/25 12:39 5 ML Trazodone HCl 50 mg HS PRN PO 01/12/25 00:45 01/13/25 22:46 50 MG Atorvastatin Calcium 10 mg HS PO 01/13/25 22:00 01/13/25 22:20 10 MG Cholecalciferol 2,000 unit DAILY PO 01/14/25 10:00 01/14/25 10:42 2,000 UNIT Folic Acid 1 mg DAILY PO 01/14/25 10:00 01/14/25 10:41 1 MG Gabapentin 800 mg TID PO 01/13/25 14:12 Oxybutynin Chloride 10 mg BID PO 01/13/25 13:45 01/14/25 10:42 10 MG Metoprolol Tartrate 25 mg BID PO 01/14/25 10:00 01/14/25 10:41 25 MG Patient Own Medication 1 BID PO 01/14/25 13:00 UNV objective General Appearance: alert, no distress HEENT: EOMI, PERRLA, normal external inspect of ears, no icterus, no nasal drainage Neck: no carotid bruit, no jugular venous distention (JVD), no lymphadenopathy Chest: normal thorax Respiratory: clear to auscultation, normal air movement Cardiovascular: regular rate and rhythm, no diastolic murmur, no jugular venous distention (JVD), no rub, no systolic murmur Abdominal: soft, no hepatomegaly, no mass, no splenomegaly, no tenderness Musculoskeletal: no joint tenderness, no swelling Extremities: normal pulses, no calf tenderness, no clubbing, no cyanosis, no edema Skin: no bruising, no jaundice, no rash Neurological: alert, No focal deficit laboratory and microbiology Laboratory Tests 01/14/25 05:24 Test 01/14/25 05:24 Range/Units Serum Glucose 97 74-106 mg/dL Problem List 1. Oral sores Monitor, IV abx, Lidocaine swish and swallow, Nystatin swish and spit 2. Thrombocytopenia Monitor, transfuse platelets 3. Smoker Monitor, smoking cessation education 4. Pharyngitis Monitor, throat swab 5. CMV positive Monitor, ID consult, antivirals Assessment/Plan Subjective: Patient is awake and alert. Objective: Patient had complaints of generalized weakness and throat pain. Patient was found to have mouth sores. CMV is positive. I did discuss plan of care with oncology. They did recommend a CMV PCR. Patient also noted to have low lymphocytes. CLL needs to be ruled out. Plan: Rule out HIV. Rule out CLL. Obtain CMV PCR. Continue nystatin and lidocaine swish and swallow. Continue pain medications as needed. Monitor platelet count. Transfuse as necessary. Hold off on steroids if patient is positive for CMV. ID recommendations appreciated. Plan discussed with: Patient, Other CC Plasma Assessment Blood Product Administration S: [id number] ALEX GROSSMAN NP Jan 14, 2025 13:09
[2025-01-14] MEDS: VALACYCLOVIR HCL 500 MG TAB PO SCH (14:29)
[2025-01-14 15:07] LABS: Anti-Nuclear Antibody Direct Positive (Negative)
--- NOTE | 2025-01-14 18:10 | DVHPN2 ---
Consult Progress Note Date Seen: Jan 14, 2025 Subjective Patient reports: No new complaints, Feels better Objective vital signs Vital Sign Date Time Temp Pulse Resp B/P (MAP) Pulse Ox O2 Delivery O2 Flow Rate FiO2 01/14/25 17:23 97.6 71 17 163/82 (109) 97 97.6 01/14/25 08:00 Room Air* 0 21 Total Intake and Output 01/13/25 01/13/25 01/14/25 15:00 23:00 07:00 Intake Total 400 ml 500 ml Balance 400 ml 500 ml medications Current Medications Medications Dose Ordered Sig/Damian Route Start Time Stop Time Status Last Admin Dose Admin Acetaminophen/ Hydrocodone Bitart 1 tab Q4HP PRN PO 01/11/25 10:45 01/13/25 20:11 1 TAB Ondansetron HCl 4 mg Q4HP PRN IV 01/11/25 10:45 Docusate Sodium 100 mg BIDPRN PRN PO 01/11/25 10:45 Acetaminophen 650 mg Q6HP PRN PO 01/11/25 10:45 Morphine Sulfate 2 mg Q4HPRN PRN IV 01/11/25 10:45 Lidocaine HCl 10 ml Q6HR PO 01/11/25 12:00 01/14/25 12:39 10 ML Nystatin 5 ml Q6HR MT 01/11/25 12:00 01/14/25 12:39 5 ML Trazodone HCl 50 mg HS PRN PO 01/12/25 00:45 01/13/25 22:46 50 MG Atorvastatin Calcium 10 mg HS PO 01/13/25 22:00 01/13/25 22:20 10 MG Cholecalciferol 2,000 unit DAILY PO 01/14/25 10:00 01/14/25 10:42 2,000 UNIT Folic Acid 1 mg DAILY PO 01/14/25 10:00 01/14/25 10:41 1 MG Gabapentin 800 mg TID PO 01/13/25 14:12 Oxybutynin Chloride 10 mg BID PO 01/13/25 13:45 01/14/25 10:42 10 MG Metoprolol Tartrate 25 mg BID PO 01/14/25 10:00 01/14/25 10:41 25 MG Valacyclovir HCl 1,000 mg BID PO 01/14/25 13:32 6/5/25 14:29 1,000 MG laboratory and microbiology Laboratory Tests 01/14/25 05:24 Test 01/14/25 05:24 Range/Units Serum Glucose 97 74-106 mg/dL Problem List/Assessment/Plan Problem List/Assessment/Plan INFECTIOUS DISEASE CONSULT Plan/Recommendation Assessment/plan # mucositis with pharyngitis likely due to methotrexate use with possible inadequate dose of folic acid, ? Crohn's disease, other causes not ruled out yet. # pancytopenia, -possibly due to ?CMV infection, Methotrexate use # history of coronary artery disease status post PCI # history of rheumatoid arthritis and Crohn disease -Currently on methotrexate, was previously on Humira Plan We can continue Nystatin switch and swallow considering patient mentioned improvement in her symptoms after nystatin No Recommendation for starting systemic antibiotics. We will order folic acid levels Order Hepatitis-B, C, HIV panel, Parvo-virus B19 for infectious workup for pancytopenia, AWAITING RESULTS CMV positive IgG and IgM, order CMV PCR, will discontinue Valcyclovir. Rheumatology consult for management for RA and Crohn's disease. We recommend holding methotrexate till rheumatology evaluate the patient. ( mucositis and pancytopenia possibly caused by methotrexate use ) Case discussion with Dr Willingham - ---Addendum Dr. Dick Willingham Patient is a 79 year old female with a past medical history of rheumatid arthritis , Crohn disease , coronary artery disease . Status Post PCI , who presents with throat pain and lesions in the mouth. Patient says that she was recently seen in the ED due to herpangina. Was given acyclovir , however is not responding and now has low platelet count and leukopenia and oral ulcers . Denies any sexual activity , denies any recent sitcontex and has had the shingles vaccine . On Physical exam patient has not necessarily oral ulcer but has small plaques on the posterior surface of the phalangeal wall . Endorses difficulty swallowing. Assessment : Patient has mucositis , likely related to methotrexate and has not followed up with a wrecking car driver in over a year and is currently taking an acceptable dose but unknown levels of folic acid . use swish and swallow while oralplex arent consistent with fungal infection , ewa esophagitis can be difficult to distinguish without a biopsy 6/4: patient feels better with no new complaints and tolerating some PO intake . Methotrexate has been held, folic acid levels are normal . Awaiting results of serologies to assess for potential viral infiltration of the bone marrow . remains leukopenic and it is worsening but no new fevers . methotrexate can also cause pancytopenia 6/5: patient is doing well , no fevers or chills 6/6: patient is having some agitation at night and at times does not know where she is and is acting belligerent and wanting to go home . informed patient that she needs to wait for ulcers to heal . oral ulcers are almost gone and healing since stopping methotrexate . she is tolerating some food . Waiting for GI to evaluate patient. Patient is HIV negative , CMV negative , EVV negative Plan: - continue to hold all antibiotics and antivirals - recommend patient be seen my rheumatology to further evaluate current regimen as well as alternative treatment and consider alternative diagnosis such as Crohn disease , pancytopenia , mucositis - thrombocytopenia lends itself to bone marrow infiltration which can be seen in cmv disease , EPV disease , and HIV . would test for these viral infection , may need to encourage to treat at this time - recommend GI consultation for potential endoscopy - test for RSV 19 - Folic acid levels do not reflect risk for mucositis therefore reasonable to hold methotrexate in this setting - Recommend checking folic acid levels to determine if patient has any deficiencies Have seen and reviewed Dr. Bauer notes. Agree with his subjective , physical exam , assessment and plan except as noted in my addendum. Plan discussed with: Patient, Other CC Plasma Assessment Blood Product Administration S: [id number] GISELA BAUER RESIDENT Jan 14, 2025 18:10 DICK WILLINGHAM MD Jan 28, 2025 07:46
[2025-01-15 01:00] VITALS: BP 136/80; PULSE 79; RESP 19; TEMP 98.1; O2SAT 98
--- NOTE | 2025-01-15 07:05 | DVHPN2 ---
Progress Note - Dictate Date Seen: Jan 15, 2025 Medical Necessity Reason Pt with a Central, PICC or Fol: No vital signs Vital Sign Date Time Temp Pulse Resp B/P (MAP) Pulse Ox O2 Delivery O2 Flow Rate FiO2 01/15/25 01:00 98.1 79 19 136/80 (98) 98 98.1 01/14/25 20:00 Room Air* 0 21 Total Intake and Output 01/14/25 01/14/25 01/15/25 15:00 23:00 07:00 Intake Total 350 ml Output Total 350 ml Balance 0 ml medications Current Medications Medications Dose Ordered Sig/Damian Route Start Time Stop Time Status Last Admin Dose Admin Acetaminophen/ Hydrocodone Bitart 1 tab Q4HP PRN PO 01/11/25 10:45 01/14/25 20:26 1 TAB Ondansetron HCl 4 mg Q4HP PRN IV 01/11/25 10:45 Docusate Sodium 100 mg BIDPRN PRN PO 01/11/25 10:45 Acetaminophen 650 mg Q6HP PRN PO 01/11/25 10:45 Morphine Sulfate 2 mg Q4HPRN PRN IV 01/11/25 10:45 Lidocaine HCl 10 ml Q6HR PO 01/11/25 12:00 01/15/25 05:47 10 ML Nystatin 5 ml Q6HR MT 01/11/25 12:00 01/15/25 05:47 5 ML Trazodone HCl 50 mg HS PRN PO 01/12/25 00:45 01/14/25 21:18 50 MG Atorvastatin Calcium 10 mg HS PO 01/13/25 22:00 01/14/25 21:18 10 MG Cholecalciferol 2,000 unit DAILY PO 01/14/25 10:00 01/14/25 10:42 2,000 UNIT Folic Acid 1 mg DAILY PO 01/14/25 10:00 01/14/25 10:41 1 MG Gabapentin 800 mg TID PO 01/13/25 14:12 Oxybutynin Chloride 10 mg BID PO 01/13/25 13:45 01/14/25 21:17 10 MG Metoprolol Tartrate 25 mg BID PO 01/14/25 10:00 01/14/25 21:24 25 MG laboratory and microbiology Laboratory Tests 01/14/25 05:24 Test 6/5/25 05:24 Range/Units Serum Glucose 97 74-106 mg/dL Assessment/Plan Patient is a 79-year-old female who presented to the hospital with sore throat and white lesions in the mouth. It seems that the patient presented few days back and then again to emergency room. She was found to have thrombocytopenia and has received platelet transfusion since admission. It is of note that the patient does have old history of coronary artery disease and has had PTCA in 2000 (in [facility] [place]). She has been kept on aspirin with Plavix as outpatient since then. She denies any recent chest pains or dyspnea on exertion. Primary team requested for Cardiology consultation as they have decided to hold back on anticoagulation/antiplatelet therapy. Patient actually came to our office back in 2021 and was lost to follow-up since then. She denies any leg swellings. She denies palpitations. It is of note that she is active cigarette smoker and does carry old history of possible COPD. She does complain of chronic cough. Elderly female. Not in acute distress. Lying flat in bed. No JVD. Mucosa is pink and wet. No carotid bruit. Not using accessory muscles of breathing. Scattered rhonchi in the lungs is heard. Cardiac: Regular, no thrill/gallop. Systolic murmur 2/6 in the apex is heard. Abdomen is soft. Bowel sound is positive. There is no gross mass/hepatomegaly. There is no peripheral edema. Dorsalis pedis is 2+ bilateral. She does have finger changes in favor of typical rheumatoid arthritis sequela Past medical history includes coronary artery disease and status post PCI in 2000 (at [facility] [place]), hyperlipidemia, rheumatoid arthritis, Crohn's disease, chronic low back pain and COPD. She has had back surgeries before. She smokes cigarettes for many decades. She has been kept on dual antiplatelet therapy (aspirin/Plavix) for long-term. Echocardiogram of May 17, 2022 (performed in the office) revealed ejection fraction of 65-70%, trace MR/TR/PI and right ventricular systolic pressure of less than 35 mm Hg. Platelet: 18 - 22 - 18 - 42 - 33 WBC: 4.9 - 2.7 - 6.1 - 3.2 - 3.1 Hemoglobin: 12.7 - 12.5 - 11.6 - 12.6 - 11.8 Creatinine: 0.66 - 0.48 - 0.52 Potassium: 3.6 - 3.5 - 3.4 TSH: 0.69 Chest x-ray revealed: IMPRESSION: No acute cardiopulmonary disease. EKG: NSR, non-specific ST T changes Tele: sinus rhythm Echocardiogram revealed: Technically difficult study secondary to poor acoustic windows. Left ventricle: Left ventricle was normal-sized. Left ventricular systolic function was hyperdynamic. LVEF was around 71%. There was no gross wall motion abnormality. Right ventricle was normal-sized with normal systolic function. Both atria were normal-sized. Aortic valve was not well visualized. There was no aortic insufficiency/stenosis. There was trace mitral and tricuspid regurgitation. Pulmonary valve was not visualized. As there was no good tricuspid regurgitation jet, right ventricular systolic pressure could not be estimated. There was no pericardial effusion. IVC was not visualized. Patient is a 79-year-old female who presented with throat pain and thrombocytopenia. Has received platelet transfusion since admission. Presentation questions component of the pharyngitis. Does have baseline history of Crohn disease/rheumatoid arthritis. Is on methotrexate as outpatient. Could the above have contributed to the clinical picture with significant thrombocytopenia? Patient does have baseline history of old coronary artery disease for which had PTCA in 2000. Cardiac-galan has been nonsymptomatic. Has been kept on dual antiplatelet therapy as outpatient. As it has been many years since cardiac stenting, dual antiplatelet therapy can be held this point. Presentation is not considered acute coronary syndrome. Clinically, no sign for acute heart failure. Patient does smoke and has been smoking for long time. History questions component of COPD/emphysema. ID is consulted Thrombocytopenia Pneumonitis Pharyngitis Pancytopenia History of coronary artery disease, status post PCI, many years ago Hyperlipidemia Rheumatoid arthritis Crohn's disease COPD Active cigarette smoker Cardiac suggestion for management: Manage on telemetry Follow-up electrolytes and kidney function tests and correct abnormalities. You can hold antiplatelet therapy for now Consider Hematology/Oncology evaluation Further evaluation and management depends on the above and clinical course A total of 55 minutes was spent reviewing the patient record, examining the patient, making a diagnostic and therapeutic plan, discussing this plan with medical personnel, following up on diagnostic studies and following the patient for clinical stability excluding any and all procedures. At least 50% of this time was spent in direct, [id number] contact. Thank you for allowing me to participate in this patient's care. Further recommendations will depend on patient's clinical course. Please do not hesitate to contact me if you have any questions or concerns. This medical document was created using electronic medical record system with [employer] computerized dictation system. Although this document has been carefully reviewed, there may still be some phonetic and typographical errors. These areas are purely typographical due to the imperfection of the software programs, and do not reflect any compromise in the patient's medical care Plan discussed with: Patient, Other (nurse) CC Plasma Assessment Blood Product Administration S: [id number] PIPPA EDWARDS MD Jan 15, 2025 07:05
[2025-01-15 08:00] VITALS: PULSE 84; RESP 17; O2SAT 95
[2025-01-15 09:59] LABS: Hematocrit 35.8 % (36.0-46.0); Hemoglobin 12.4 g/dL (12.2-16.2); Mean Corpuscular Hemoglobin 32.5 pg (28.0-32.0); Mean Corpuscular Hgb Conc. 34.5 g/dL (32.0-36.0); Mean Corpuscular Volume 94.3 fL (80.0-100.0); Platelet Count (auto) 63 10^3/uL (140-450); Red Cell Distribution Width 14.8 % (11.8-14.3)
[2025-01-15 10:02] LABS: White Blood Cell 1.8 10^3/uL (4.4-10.8)
[2025-01-15 10:03] LABS: Basophils % (manual) 0 (0.0-2.0); Blast Cells 0; Metamyelocytes % 0; Myelocytes % 0; Promyelocytes % 0; Reactive Lymphocytes 0
[2025-01-15 10:13] LABS: Alanine Aminotransferase 13 U/L (7-40); Albumin 3.8 g/dL (3.2-4.8); Alkaline Phosphatase 72 U/L (46-116); Anion Gap 8 (5-15); Aspartate Aminotransferase 17 U/L (13-40); BUN/Creatinine Ratio 18.6 (10.0-20.0); Blood Urea Nitrogen 11 mg/dL (9-23); Calcium 9.4 mg/dL (8.7-10.4); Carbon Dioxide 26 mmol/L (20-31); Sodium 142 mmol/L (136-145)
[2025-01-15 10:14] LABS: Bilirubin, Total 0.4 mg/dL (0.2-1.0)
[2025-01-15 10:22] LABS: Chloride 108 mmol/L (98-107); Glucose 133 mg/dL (74-106); Potassium 3.2 mmol/L (3.5-5.1)
[2025-01-15 10:58] LABS: Band Neutrophils % (manual) 1; Eosinophils % (manual) 7 (0-7); Lymphocytes % (manual) 79 (10.0-50.0); Monocytes % (manual) 4 (0-12); Platelet Estimate Decreased
[2025-01-15] MEDS: POTASSIUM EFFERVESENT TAB 25 MEQ PO ONE (12:32)
--- NOTE | 2025-01-15 12:32 | DVHPN2 ---
Consult Progress Note Date Seen: Jan 15, 2025 Subjective Patient reports: No new complaints, Feels better Objective vital signs Vital Sign Date Time Temp Pulse Resp B/P (MAP) Pulse Ox O2 Delivery O2 Flow Rate FiO2 01/15/25 09:59 84 118/63 01/15/25 08:00 17 95 Room Air* 0 21 01/15/25 01:00 98.1 98.1 Total Intake and Output 01/14/25 01/14/25 01/15/25 14:59 22:59 06:59 Intake Total 350 ml Output Total 350 ml Balance 0 ml medications Current Medications Medications Dose Ordered Sig/Damian Route Start Time Stop Time Status Last Admin Dose Admin Acetaminophen/ Hydrocodone Bitart 1 tab Q4HP PRN PO 01/11/25 10:45 01/14/25 20:26 1 TAB Ondansetron HCl 4 mg Q4HP PRN IV 01/11/25 10:45 Docusate Sodium 100 mg BIDPRN PRN PO 01/11/25 10:45 Acetaminophen 650 mg Q6HP PRN PO 01/11/25 10:45 Morphine Sulfate 2 mg Q4HPRN PRN IV 01/11/25 10:45 Lidocaine HCl 10 ml Q6HR PO 01/11/25 12:00 01/15/25 05:47 10 ML Nystatin 5 ml Q6HR MT 01/11/25 12:00 01/15/25 05:47 5 ML Trazodone HCl 50 mg HS PRN PO 01/12/25 00:45 01/14/25 21:18 50 MG Atorvastatin Calcium 10 mg HS PO 01/13/25 22:00 01/14/25 21:18 10 MG Cholecalciferol 2,000 unit DAILY PO 01/14/25 10:00 01/15/25 09:59 2,000 UNIT Folic Acid 1 mg DAILY PO 01/14/25 10:00 01/15/25 09:59 1 MG Gabapentin 800 mg TID PO 01/13/25 14:12 Oxybutynin Chloride 10 mg BID PO 01/13/25 13:45 01/15/25 09:59 10 MG Metoprolol Tartrate 25 mg BID PO 01/14/25 10:00 01/15/25 09:59 25 MG laboratory and microbiology Laboratory Tests 01/15/25 09:23 Test 01/15/25 09:23 Range/Units Serum Glucose 133 H 74-106 mg/dL Problem List/Assessment/Plan Problem List/Assessment/Plan INFECTIOUS DISEASE CONSULT Plan/Recommendation Assessment/plan # mucositis with pharyngitis likely due to methotrexate use with possible inadequate dose of folic acid, ? Crohn's disease, other causes not ruled out yet. # pancytopenia -possibly due to ?CMV infection, Methotrexate use # history of coronary artery disease status post PCI # history of rheumatoid arthritis and Crohn disease -Currently on methotrexate, was previously on Humira Plan We can continue Nystatin switch and swallow considering patient mentioned improvement in her symptoms after nystatin No Recommendation for starting systemic antibiotics. Order Hepatitis-B, C, HIV panel, Parvo-virus B19 for infectious workup for pancytopenia, AWAITING COMPLETE RESULTS CMV positive IgG and IgM. discontinue Valcyclovir as possible risk of more bone suppression. We Recommend GI consult for evaluation for CMV Mucositis and possible Esophagitis as patient had dysphagia that started 2 weeks ago( currently resolved ) Rheumatology consult for management for RA and Crohn's disease. We recommend holding methotrexate till rheumatology evaluate the patient. ( mucositis and pancytopenia possibly caused by methotrexate use ) Case discussion with Dr Willingham - ---Addendum Dr. Dick Willingham Patient is a 79 year old female with a past medical history of rheumatid arthritis , Crohn disease , coronary artery disease . Status Post PCI , who presents with throat pain and lesions in the mouth. Patient says that she was recently seen in the ED due to herpangina. Was given acyclovir , however is not responding and now has low platelet count and leukopenia and oral ulcers . Denies any sexual activity , denies any recent sitcontex and has had the shingles vaccine . On Physical exam patient has not necessarily oral ulcer but has small plaques on the posterior surface of the phalangeal wall . Endorses difficulty swallowing. Assessment : Patient has mucositis , likely related to methotrexate and has not followed up with a production clerk in over a year and is currently taking an acceptable dose but unknown levels of folic acid . use swish and swallow while oralplex arent consistent with fungal infection , ewa esophagitis can be difficult to distinguish without a biopsy 6/4: patient feels better with no new complaints and tolerating some PO intake . Methotrexate has been held, folic acid levels are normal . Awaiting results of serologies to assess for potential viral infiltration of the bone marrow . remains leukopenic and it is worsening but no new fevers . methotrexate can also cause pancytopenia 6/6: patient is having some agitation at night and at times does not know where she is and is acting belligerent and wanting to go home . informed patient that she needs to wait for ulcers to heal . oral ulcers are almost gone and healing since stopping methotrexate . she is tolerating some food . Waiting for GI to evaluate patient. Patient is HIV negative , CMV negative , EVV negative Plan: - continue to hold all antibiotics and antivirals - recommend patient be seen my rheumatology to further evaluate current regimen as well as alternative treatment and consider alternative diagnosis such as Crohn disease , pancytopenia , mucositis - thrombocytopenia lends itself to bone marrow infiltration which can be seen in cmv disease , EPV disease , and HIV . would test for these viral infection , may need to encourage to treat at this time - recommend GI consultation for potential endoscopy - test for RSV 19 - Folic acid levels do not reflect risk for mucositis therefore reasonable to hold methotrexate in this setting - Recommend checking folic acid levels to determine if patient has any deficiencies Have seen and reviewed Dr. Bauer notes. Agree with his subjective , physical exam , assessment and plan except as noted in my addendum. Plan discussed with: Patient, Other CC Plasma Assessment Blood Product Administration S: [id number] GISELA BAUER RESIDENT Jan 15, 2025 12:32 DICK WILLINGHAM MD Jan 28, 2025 07:42
[2025-01-15 13:00] VITALS: BP 123/67; PULSE 79; RESP 17; TEMP 98.4; O2SAT 96
[2025-01-15 17:27] VITALS: BP 132/73; PULSE 74; RESP 16; TEMP 98; O2SAT 96
--- NOTE | 2025-01-15 17:37 | DVHPN2 ---
Progress Note Date Seen: Jan 15, 2025 Medical Necessity Reason Pt with a Central, PICC or Fol: No Subjective Review of Systems: CVS:Normal, RESPIRATORY:Normal, :Normal, NEURO:Normal Objective vital signs Vital Sign Date Time Temp Pulse Resp B/P (MAP) Pulse Ox O2 Delivery O2 Flow Rate FiO2 01/15/25 17:27 98.0 74 16 132/73 (92) 96 98.0 01/15/25 08:00 Room Air* 0 21 Total Intake and Output 01/14/25 01/14/25 01/15/25 15:00 23:00 07:00 Intake Total 350 ml Output Total 350 ml Balance 0 ml medications Current Medications Medications Dose Ordered Sig/Damian Route Start Time Stop Time Status Last Admin Dose Admin Acetaminophen/ Hydrocodone Bitart 1 tab Q4HP PRN PO 01/11/25 10:45 01/14/25 20:26 1 TAB Ondansetron HCl 4 mg Q4HP PRN IV 01/11/25 10:45 Docusate Sodium 100 mg BIDPRN PRN PO 01/11/25 10:45 Acetaminophen 650 mg Q6HP PRN PO 01/11/25 10:45 Morphine Sulfate 2 mg Q4HPRN PRN IV 01/11/25 10:45 Lidocaine HCl 10 ml Q6HR PO 01/11/25 12:00 01/15/25 12:31 10 ML Nystatin 5 ml Q6HR MT 01/11/25 12:00 01/15/25 12:31 5 ML Trazodone HCl 50 mg HS PRN PO 01/12/25 00:45 01/14/25 21:18 50 MG Atorvastatin Calcium 10 mg HS PO 01/13/25 22:00 01/14/25 21:18 10 MG Cholecalciferol 2,000 unit DAILY PO 01/14/25 10:00 01/15/25 09:59 2,000 UNIT Folic Acid 1 mg DAILY PO 01/14/25 10:00 01/15/25 09:59 1 MG Gabapentin 800 mg TID PO 01/13/25 14:12 Oxybutynin Chloride 10 mg BID PO 01/13/25 13:45 01/15/25 09:59 10 MG Metoprolol Tartrate 25 mg BID PO 01/14/25 10:00 01/15/25 09:59 25 MG Examination: GENERAL:Normal, LUNGS:Normal, CVS:Normal, ABDOMEN:Normal, NEURO:Normal laboratory and microbiology Laboratory Tests 01/15/25 09:23 Test 01/15/25 09:23 Range/Units Serum Glucose 133 H 74-106 mg/dL Labs and/or images reviewed: Labs reviewed by me, Image(s) reviewed by me Problem List/Assessment/Plan Problem List/Assessment/Plan 1. Oral sores Monitor, IV abx, Lidocaine swish and swallow, Nystatin swish and spit 2. Thrombocytopenia Monitor, transfuse platelets 3. Smoker Monitor, smoking cessation education 4. Pharyngitis Monitor, throat swab 5. CMV positive Monitor, ID consult, antivirals Assessment/Plan Subjective: Patient is awake and alert. Objective: Patient had complaints of generalized weakness and throat pain. Patient was found to have mouth sores. CMV is positive. My colleague did discuss case with Hematology who recommended obtaining CMV PCR however Infectious Disease DC the order. WBCs were found to be 1.8 today I discussed case with Hematology and said to wait for flow cytometry determine if patient will possibly be bone marrow biopsy. May need to possibly rule out CLL. Did not recommend placing patient on Neupogen at this time. Per Infectious Disease hold off on antiviral to thrombocytopenia. Plan: Rule out HIV. Rule out CLL. Obtain CMV PCR. Continue nystatin and lidocaine swish and swallow. Continue pain medications as needed. Monitor platelet count. Transfuse as necessary. Hold off on steroids if patient is positive for CMV. ID recommendations appreciated. Plan discussed with: Patient My Orders My Orders Orders - FISH OTERO Procedure Category Date Status Time Isolation Order ORDERS 01/15/25 Transmitted 12:47 Date of Service: Jan 15, 2025 Billing Provider: ROSS PRIEST MD Common Visit Codes: [id number] INP/OBS CARE (MOD) CC Plasma Assessment Blood Product Administration S: [id number] FISH OTERO Jan 15, 2025 17:37
[2025-01-15 20:00] VITALS: PULSE 77; RESP 16; O2SAT 95
[2025-01-15 21:00] VITALS: BP 136/67; PULSE 77; RESP 20; TEMP 97.7; O2SAT 99
[2025-01-16] VITALS (8 sets, daily range): BP systolic 120–148; BP diastolic 61–78; PULSE 63–88; RESP 17–19; TEMP 97.5–98.2; O2SAT 93–99
--- NOTE | 2025-01-16 07:28 | DVHPN2 ---
Progress Note - Dictate Date Seen: Jan 16, 2025 Medical Necessity Reason Pt with a Central, PICC or Fol: No Subjective Patient is a 79-year-old female who presented to the hospital with sore throat and white lesions in the mouth. It seems that the patient presented few days back and then again to emergency room. She was found to have thrombocytopenia and has received platelet transfusion since admission. It is of note that the patient does have old history of coronary artery disease and has had PTCA in 2000 (in [facility] [place] She has been kept on aspirin with Plavix as outpatient since then. She denies any recent chest pains or dyspnea on exertion. Primary team requested for Cardiology consultation as they have decided to hold back on anticoagulation/antiplatelet therapy. Patient actually came to our office back in 2021 and was lost to follow-up since then. She denies any leg swellings. She denies palpitations. It is of note that she is active cigarette smoker and does carry old history of possible COPD. She does complain of chronic cough. Past medical history includes coronary artery disease and status post PCI in 2000 (at [facility] [place]), hyperlipidemia, rheumatoid arthritis, Crohn's disease, chronic low back pain and COPD. She has had back surgeries before. She smokes cigarettes for many decades. She has been kept on dual antiplatelet therapy (aspirin/Plavix) for long-term. Echocardiogram of May 17, 2022 (performed in the office) revealed ejection fraction of 65-70%, trace MR/TR/PI and right ventricular systolic pressure of less than 35 mm Hg. Platelet: 18 - 22 - 18 - 42 - 33 WBC: 4.9 - 2.7 - 6.1 - 3.2 - 3.1 Hemoglobin: 12.7 - 12.5 - 11.6 - 12.6 - 11.8 Creatinine: 0.66 - 0.48 - 0.52 Potassium: 3.6 - 3.5 - 3.4 TSH: 0.69 Chest x-ray revealed: IMPRESSION: No acute cardiopulmonary disease. EKG: NSR, non-specific ST T changes Echocardiogram revealed: Technically difficult study secondary to poor acoustic windows. Left ventricle: Left ventricle was normal-sized. Left ventricular systolic function was hyperdynamic. LVEF was around 71%. There was no gross wall motion abnormality. Right ventricle was normal-sized with normal systolic function. Both atria were normal-sized. Aortic valve was not well visualized. There was no aortic insufficiency/stenosis. There was trace mitral and tricuspid regurgitation. Pulmonary valve was not visualized. As there was no good tricuspid regurgitation jet, right ventricular systolic pressure could not be estimated. There was no pericardial effusion. IVC was not visualized. Patient is a 79-year-old female who presented with throat pain and thrombocytopenia. Has received platelet transfusion since admission. Presentation questions component of the pharyngitis. Does have baseline history of Crohn disease/rheumatoid arthritis. Is on methotrexate as outpatient. Could the above have contributed to the clinical picture with significant thrombocytopenia? Patient does have baseline history of old coronary artery disease for which had PTCA in 2000. Cardiac-galan has been nonsymptomatic. Has been kept on dual antiplatelet therapy as outpatient. As it has been many years since cardiac stenting, dual antiplatelet therapy can be held this point. Presentation is not considered acute coronary syndrome. Clinically, no sign for acute heart failure. Patient does smoke and has been smoking for long time. History questions component of COPD emphysema. ID is consulted vital signs Vital Sign Date Time Temp Pulse Resp B/P (MAP) Pulse Ox O2 Delivery O2 Flow Rate FiO2 01/16/25 04:53 97.9 68 18 135/68 (90) 98 97.9 01/15/25 20:00 Room Air* 0 21 Total Intake and Output 01/15/25 01/15/25 01/16/25 15:00 23:00 07:00 Intake Total 450 ml 300 ml Output Total 300 ml Balance 150 ml 300 ml medications Current Medications Medications Dose Ordered Sig/Damian Route Start Time Stop Time Status Last Admin Dose Admin Acetaminophen/ Hydrocodone Bitart 1 tab Q4HP PRN PO 01/11/25 10:45 01/15/25 22:29 1 TAB Ondansetron HCl 4 mg Q4HP PRN IV 01/11/25 10:45 Docusate Sodium 100 mg BIDPRN PRN PO 01/11/25 10:45 Acetaminophen 650 mg Q6HP PRN PO 01/11/25 10:45 Morphine Sulfate 2 mg Q4HPRN PRN IV 01/11/25 10:45 Lidocaine HCl 10 ml Q6HR PO 01/11/25 12:00 01/16/25 00:54 10 ML Nystatin 5 ml Q6HR MT 01/11/25 12:00 01/16/25 00:54 5 ML Trazodone HCl 50 mg HS PRN PO 01/12/25 00:45 01/16/25 00:54 50 MG Atorvastatin Calcium 10 mg HS PO 01/13/25 22:00 01/15/25 22:20 10 MG Cholecalciferol 2,000 unit DAILY PO 01/14/25 10:00 01/15/25 09:59 2,000 UNIT Folic Acid 1 mg DAILY PO 01/14/25 10:00 01/15/25 09:59 1 MG Gabapentin 800 mg TID PO 01/13/25 14:12 Oxybutynin Chloride 10 mg BID PO 01/13/25 13:45 01/15/25 22:20 10 MG Metoprolol Tartrate 25 mg BID PO 01/14/25 10:00 01/15/25 22:20 25 MG laboratory and microbiology Laboratory Tests 01/15/25 09:23 Test 01/15/25 09:23 Range/Units Serum Glucose 133 H 74-106 mg/dL Assessment/Plan Elderly female. Not in acute distress. Lying flat in bed. No JVD. Mucosa is pink and wet. No carotid bruit. Not using accessory muscles of breathing. Scattered rhonchi in the lungs is heard. Cardiac: Regular, no thrill/gallop. Systolic murmur 2/6 in the apex is heard. Abdomen is soft. Bowel sound is positive. There is no gross mass/hepatomegaly. There is no peripheral edema. Dorsalis pedis is 2+ bilateral. She does have finger changes in favor of typical rheumatoid arthritis sequela Thrombocytopenia Pneumonitis Pharyngitis Pancytopenia History of coronary artery disease, status post PCI, many years ago Hyperlipidemia Rheumatoid arthritis Crohn's disease COPD Active cigarette smoker Follow-up electrolytes and kidney function tests and correct abnormalities. You can hold antiplatelet therapy for now Consider Hematology/Oncology evaluation Management in Telemetry Will proceed to follow from a cardiac perspective Further recommendations per clinical progression All available labs, EKGs, and images were personally reviewed Patient's status, findings, and plan of care was discussed and reviewed with supervising physician Dr. Reed, who is in agreement with current plan of care. Plan of care discussed with and agreed upon by patient/family/Primary RN. Prognosis: Guarded Thank you for allowing me to participate in the care of this patient. Further recommendations will depend on clinical progression, hospitalist, and other consultants. Will continue to follow with Primary. If you have any questions, please do not hesitate to contact me. A total of 55 minutes was spent reviewing the patient record, examining the patient, making a diagnostic and therapeutic plan, discussing this plan with medical personnel, following up on diagnostic studies and following the patient for clinical stability excluding any and all procedures. At least 50% of this time was spent in direct, [id number] contact. Plan discussed with: Patient CC Plasma Assessment Blood Product Administration S: [id number] ANSON ALTAMIRANO NP Jan 16, 2025 07:28
[2025-01-16 10:49] LABS: Hematocrit 38.7 % (36.0-46.0); Hemoglobin 12.9 g/dL (12.2-16.2); Mean Corpuscular Hgb Conc. 33.4 g/dL (32.0-36.0); Mean Corpuscular Volume 95.9 fL (80.0-100.0); Platelet Count (auto) 105 10^3/uL (140-450); Red Blood Cells 4.03 10^6/uL (4.0-5.20); Red Cell Distribution Width 15.8 % (11.8-14.3); White Blood Cell 2.6 10^3/uL (4.4-10.8)
[2025-01-16 11:02] LABS: Alanine Aminotransferase 12 U/L (7-40); Alkaline Phosphatase 77 U/L (46-116); Anion Gap 9 (5-15); Aspartate Aminotransferase 20 U/L (13-40); BUN/Creatinine Ratio 16.1 (10.0-20.0); Blood Urea Nitrogen 9 mg/dL (9-23); Calcium 9.2 mg/dL (8.7-10.4); Carbon Dioxide 26 mmol/L (20-31); Chloride 106 mmol/L (98-107); Glucose 92 mg/dL (74-106); Potassium 3.6 mmol/L (3.5-5.1); Sodium 141 mmol/L (136-145); Total Protein 7.5 g/dL (5.7-8.2)
[2025-01-16 11:03] LABS: Bilirubin, Total 0.5 mg/dL (0.2-1.0)
[2025-01-16 11:04] LABS: Band Neutrophils % (manual) 0; Basophils % (manual) 0 (0.0-2.0); Blast Cells 0; Metamyelocytes % 0; Myelocytes % 0; Promyelocytes % 0; Reactive Lymphocytes 0
[2025-01-16 11:58] LABS: Eosinophils % (manual) 6 (0-7); Lymphocytes % (manual) 81 (10.0-50.0); Monocytes % (manual) 4 (0-12); Platelet Estimate Decreased
--- NOTE | 2025-01-16 12:48 | DVHPN2 ---
Progress Note Date Seen: Jan 16, 2025 Medical Necessity Reason Pt with a Central, PICC or Fol: No Objective vital signs Vital Sign Date Time Temp Pulse Resp B/P (MAP) Pulse Ox O2 Delivery O2 Flow Rate FiO2 01/16/25 10:43 63 120/61 01/16/25 08:51 97.5 19 99 97.5 01/16/25 08:00 Room Air* 0 21 Total Intake and Output 01/15/25 01/15/25 01/16/25 15:00 23:00 07:00 Intake Total 450 ml 300 ml Output Total 300 ml Balance 150 ml 300 ml medications Current Medications Medications Dose Ordered Sig/Damian Route Start Time Stop Time Status Last Admin Dose Admin Acetaminophen/ Hydrocodone Bitart 1 tab Q4HP PRN PO 01/11/25 10:45 01/15/25 22:29 1 TAB Ondansetron HCl 4 mg Q4HP PRN IV 01/11/25 10:45 Docusate Sodium 100 mg BIDPRN PRN PO 01/11/25 10:45 Acetaminophen 650 mg Q6HP PRN PO 01/11/25 10:45 Morphine Sulfate 2 mg Q4HPRN PRN IV 01/11/25 10:45 Lidocaine HCl 10 ml Q6HR PO 01/11/25 12:00 01/16/25 11:06 10 ML Nystatin 5 ml Q6HR MT 01/11/25 12:00 01/16/25 11:05 5 ML Trazodone HCl 50 mg HS PRN PO 01/12/25 00:45 01/16/25 00:54 50 MG Atorvastatin Calcium 10 mg HS PO 01/13/25 22:00 01/15/25 22:20 10 MG Cholecalciferol 2,000 unit DAILY PO 01/14/25 10:00 01/16/25 10:44 2,000 UNIT Folic Acid 1 mg DAILY PO 01/14/25 10:00 01/16/25 10:45 1 MG Gabapentin 800 mg TID PO 01/13/25 14:12 Oxybutynin Chloride 10 mg BID PO 01/13/25 13:45 01/16/25 10:44 10 MG Metoprolol Tartrate 25 mg BID PO 01/14/25 10:00 01/16/25 10:43 25 MG Examination: GENERAL:Normal, NECK:Normal, LUNGS:Normal, CVS:Normal, SKIN:Normal laboratory and microbiology Laboratory Tests 01/16/25 10:26 Test 01/16/25 10:26 Range/Units Serum Glucose 92 74-106 mg/dL Labs and/or images reviewed: Labs reviewed by me, Image(s) reviewed by me Problem List/Assessment/Plan Problem List/Assessment/Plan 1. Oral sores Monitor, IV abx, Lidocaine swish and swallow, Nystatin swish and spit 2. Thrombocytopenia Monitor, transfuse platelets 3. Smoker Monitor, smoking cessation education 4. Pharyngitis Monitor, throat swab 5. CMV positive Monitor, ID consult, antivirals Assessment/Plan Subjective: Patient is awake and alert. Objective: Patient had complaints of generalized weakness and throat pain. Patient was found to have mouth sores. CMV is positive. My colleague did discuss case with Hematology who recommended obtaining CMV PCR however Infectious Disease DC the order. I discussed case with Hematology yesterday and said to wait for flow cytometry to determine if patient will possibly need bone marrow biopsy to rule out CLL. Wbcs improved to 2.6 and plts improved to 105. Per Infectious Disease hold off on antiviral to thrombocytopenia. Plan: Continue nystatin and lidocaine swish and swallow. Continue pain medications as needed. Monitor platelet count. Transfuse as necessary. Hold off on steroids if patient is positive for CMV. ID recommendations appreciated. await flow cytometry results. Plan discussed with: Patient My Orders My Orders Orders - FISH OTERO Procedure Category Date Status Time Isolation Order ORDERS 01/15/25 Transmitted 12:47 Communication Order ORDERS 01/16/25 Transmitted 09:24 Date of Service: Jan 16, 2025 Billing Provider: ROSS PRIEST MD Common Visit Codes: [id number] INP/OBS CARE (MOD) CC Plasma Assessment Blood Product Administration S: [id number] FISH OTERO Jan 16, 2025 12:48
[2025-01-16] MEDS: DONNATAL 5ml ORAL Elix (BELLADONNA ALK-PHENOBARB) PO ONE (16:30)
[2025-01-16] MEDS: MAALOX PLUS or MAALOX 30 ML PO ONE (16:30)
[2025-01-16] MEDS ORDERED: LIDOCAINE VISCOUS 2% 15ML UD PO ONE (16:30)
[2025-01-16] MEDS: PANTOPRAZOLE 40 MG TAB PO ONE (17:26)
[2025-01-16] MEDS: ONDANSETRON HCL 4 MG/2 ML VIAL IV PRN (21:35)
[2025-01-16] MEDS: MORPHINE SULFATE 4 MG/ML SYR/VIAL IV PRN (22:13)
[2025-01-17] VITALS (7 sets, daily range): BP systolic 119–154; BP diastolic 64–81; PULSE 54–84; RESP 17–20; TEMP 97.3–98.6; O2SAT 90–98
[2025-01-17] MEDS: PANTOPRAZOLE 40 MG TAB PO SCH (05:41)
[2025-01-17 08:33] LABS: Basophils % (manual) 0 (0.0-2.0); Blast Cells 0; Metamyelocytes % 0; Myelocytes % 0; Promyelocytes % 0; Reactive Lymphocytes 0
[2025-01-17 08:46] LABS: Potassium 3.7 mmol/L (3.5-5.1); Sodium 143 mmol/L (136-145)
[2025-01-17 08:47] LABS: Anion Gap 9 (5-15); Carbon Dioxide 26 mmol/L (20-31)
[2025-01-17 08:48] LABS: Calcium 9.4 mg/dL (8.7-10.4)
[2025-01-17 08:49] LABS: Chloride 108 mmol/L (98-107)
[2025-01-17 08:52] LABS: BUN/Creatinine Ratio 14.8 (10.0-20.0); Glucose 96 mg/dL (74-106)
[2025-01-17 08:53] LABS: Magnesium 1.9 mg/dL (1.6-2.6)
--- NOTE | 2025-01-17 08:56 | DVHPN2 ---
Progress Note - Dictate Date Seen: Jan 17, 2025 Medical Necessity Reason Pt with a Central, PICC or Fol: No Subjective Patient is a 79-year-old female who presented to the hospital with sore throat and white lesions in the mouth. It seems that the patient presented few days back and then again to emergency room. She was found to have thrombocytopenia and has received platelet transfusion since admission. It is of note that the patient does have old history of coronary artery disease and has [place] [facility] [place] She has been kept on aspirin with Plavix as outpatient since then. She denies any recent chest pains or dyspnea on exertion. Primary team requested for Cardiology consultation as they have decided to hold back on anticoagulation/antiplatelet therapy. Patient actually came to our office back in 2021 and was lost to follow-up since then. She denies any leg swellings. She denies palpitations. It is of note that she is active cigarette smoker and does carry old history of possible COPD. She does complain of chronic cough. Past medical history includes coronary artery disease and status post PCI in 2000 ([place] [facility] [place] hyperlipidemia, rheumatoid arthritis, Crohn's disease, chronic low back pain and COPD. She has had back surgeries before. She smokes cigarettes for many decades. She has been kept on dual antiplatelet therapy (aspirin/Plavix) for long-term. Echocardiogram of May 17, 2022 (performed in the office) revealed ejection fraction of 65-70%, trace MR/TR/PI and right ventricular systolic pressure of less than 35 mm Hg. Platelet: 18 - 22 - 18 - 42 - 33 WBC: 4.9 - 2.7 - 6.1 - 3.2 - 3.1 Hemoglobin: 12.7 - 12.5 - 11.6 - 12.6 - 11.8 Creatinine: 0.66 - 0.48 - 0.52 Potassium: 3.6 - 3.5 - 3.4 TSH: 0.69 Chest x-ray revealed: IMPRESSION: No acute cardiopulmonary disease. EKG: NSR, non-specific ST T changes Echocardiogram revealed: Technically difficult study secondary to poor acoustic windows. Left ventricle: Left ventricle was normal-sized. Left ventricular systolic function was hyperdynamic. LVEF was around 71%. There was no gross wall motion abnormality. Right ventricle was normal-sized with normal systolic function. Both atria were normal-sized. Aortic valve was not well visualized. There was no aortic insufficiency/stenosis. There was trace mitral and tricuspid regurgitation. Pulmonary valve was not visualized. As there was no good tricuspid regurgitation jet, right ventricular systolic pressure could not be estimated. There was no pericardial effusion. IVC was not visualized. Patient is a 79-year-old female who presented with throat pain and thrombocytopenia. Has received platelet transfusion since admission. Presentation questions component of the pharyngitis. Does have baseline history of Crohn disease/rheumatoid arthritis. Is on methotrexate as outpatient. Could the above have contributed to the clinical picture with significant thrombocytopenia? Patient does have baseline history of old coronary artery disease for which had PTCA in 2000. Cardiac-galan has been nonsymptomatic. Has been kept on dual antiplatelet therapy as outpatient. As it has been many years since cardiac stenting, dual antiplatelet therapy can be held this point. Presentation is not considered acute coronary syndrome. Clinically, no sign for acute heart failure. Patient does smoke and has been smoking for long time. History questions component of COPD emphysema. ID is consulted vital signs Vital Sign Date Time Temp Pulse Resp B/P (MAP) Pulse Ox O2 Delivery O2 Flow Rate FiO2 01/17/25 05:00 97.7 67 18 129/65 (86) 96 97.7 01/16/25 20:00 Room Air* 0 21 Total Intake and Output 01/16/25 01/16/25 01/17/25 15:00 23:00 07:00 Intake Total 350 ml 350 ml Balance 350 ml 350 ml medications Current Medications Medications Dose Ordered Sig/Damian Route Start Time Stop Time Status Last Admin Dose Admin Acetaminophen/ Hydrocodone Bitart 1 tab Q4HP PRN PO 01/11/25 10:45 01/15/25 22:29 1 TAB Ondansetron HCl 4 mg Q4HP PRN IV 01/11/25 10:45 01/16/25 21:35 4 MG Docusate Sodium 100 mg BIDPRN PRN PO 01/11/25 10:45 Acetaminophen 650 mg Q6HP PRN PO 01/11/25 10:45 Lidocaine HCl 10 ml Q6HR PO 01/11/25 12:00 01/17/25 05:42 10 ML Nystatin 5 ml Q6HR MT 01/11/25 12:00 01/17/25 05:42 5 ML Trazodone HCl 50 mg HS PRN PO 01/12/25 00:45 01/17/25 00:16 50 MG Atorvastatin Calcium 10 mg HS PO 01/13/25 22:00 01/16/25 22:15 10 MG Cholecalciferol 2,000 unit DAILY PO 01/14/25 10:00 01/16/25 10:44 2,000 UNIT Folic Acid 1 mg DAILY PO 01/14/25 10:00 01/16/25 10:45 1 MG Gabapentin 800 mg TID PO 01/13/25 14:12 Oxybutynin Chloride 10 mg BID PO 01/13/25 13:45 01/16/25 22:14 10 MG Metoprolol Tartrate 25 mg BID PO 01/14/25 10:00 01/16/25 22:13 25 MG Pantoprazole Sodium 40 mg DAILY@0600 PO 01/17/25 06:00 01/17/25 05:41 40 MG Morphine Sulfate 2 mg Q4HPRN PRN IV 01/16/25 22:00 01/16/25 22:13 2 MG laboratory and microbiology Laboratory Tests 01/17/25 08:25 Test 01/17/25 08:25 Range/Units Serum Glucose Pending Assessment/Plan Cardiac-galan patient remains stable Elderly female. Not in acute distress. Lying flat in bed. No JVD. Mucosa is pink and wet. No carotid bruit. Not using accessory muscles of breathing. Scattered rhonchi in the lungs is heard. Cardiac: Regular, no thrill/gallop. Systolic murmur 2/6 in the apex is heard. Abdomen is soft. Bowel sound is positive. There is no gross mass/hepatomegaly. There is no peripheral edema. Dorsalis pedis is 2+ bilateral. She does have finger changes in favor of typical rheumatoid arthritis sequela Thrombocytopenia Pneumonitis Pharyngitis Pancytopenia History of coronary artery disease, status post PCI, many years ago Hyperlipidemia Rheumatoid arthritis Crohn's disease COPD Active cigarette smoker Follow-up electrolytes and kidney function tests and correct abnormalities. You can hold antiplatelet therapy for now Consider Hematology/Oncology evaluation Management in Telemetry Will proceed to follow from a cardiac perspective Further recommendations per clinical progression All available labs, EKGs, and images were personally reviewed Patient's status, findings, and plan of care was discussed and reviewed with supervising physician Dr. Reed, who is in agreement with current plan of care. Plan of care discussed with and agreed upon by patient/family/Primary RN. Prognosis: Guarded Thank you for allowing me to participate in the care of this patient. Further recommendations will depend on clinical progression, hospitalist, and other consultants. Will continue to follow with Primary. If you have any questions, please do not hesitate to contact me. A total of 55 minutes was spent reviewing the patient record, examining the patient, making a diagnostic and therapeutic plan, discussing this plan with medical personnel, following up on diagnostic studies and following the patient for clinical stability excluding any and all procedures. At least 50% of this time was spent in direct, [id number] contact. Plan discussed with: Patient CC Plasma Assessment Blood Product Administration S: [id number] ANSON ALTAMIRANO NP Jan 17, 2025 08:56
[2025-01-17 08:59] LABS: Blood Urea Nitrogen 9 mg/dL (9-23)
[2025-01-17 09:58] LABS: Red Cell Distribution Width 15.4 % (11.8-14.3)
[2025-01-17 10:00] LABS: Hemoglobin 12.5 g/dL (12.2-16.2); Mean Corpuscular Hemoglobin 32.1 pg (28.0-32.0); Mean Corpuscular Hgb Conc. 33.7 g/dL (32.0-36.0); Mean Corpuscular Volume 95.1 fL (80.0-100.0); Platelet Count (auto) 140 10^3/uL (140-450); Red Blood Cells 3.89 10^6/uL (4.0-5.20)
[2025-01-17 10:04] LABS: White Blood Cell 1.9 10^3/uL (4.4-10.8)
[2025-01-17 10:05] LABS: Band Neutrophils % (manual) 2; Eosinophils % (manual) 9 (0-7); Lymphocytes % (manual) 84 (10.0-50.0); Monocytes % (manual) 1 (0-12); Platelet Estimate Adequate
--- NOTE | 2025-01-17 12:37 | DVHPN2 ---
Progress Note Date Seen: Jan 17, 2025 Medical Necessity Reason Pt with a Central, PICC or Fol: No Subjective Review of Systems: CVS:Normal, RESPIRATORY:Normal, GI:Normal, NEURO:Normal Objective vital signs Vital Sign Date Time Temp Pulse Resp B/P (MAP) Pulse Ox O2 Delivery O2 Flow Rate FiO2 01/17/25 11:40 70 120/81 01/17/25 09:00 98.2 18 98 98.2 01/17/25 08:00 Room Air* 0 21 Total Intake and Output 01/16/25 01/16/25 01/17/25 15:00 23:00 07:00 Intake Total 350 ml 350 ml Balance 350 ml 350 ml medications Current Medications Medications Dose Ordered Sig/Damian Route Start Time Stop Time Status Last Admin Dose Admin Acetaminophen/ Hydrocodone Bitart 1 tab Q4HP PRN PO 01/11/25 10:45 01/17/25 10:46 1 TAB Ondansetron HCl 4 mg Q4HP PRN IV 01/11/25 10:45 01/16/25 21:35 4 MG Docusate Sodium 100 mg BIDPRN PRN PO 01/11/25 10:45 Acetaminophen 650 mg Q6HP PRN PO 01/11/25 10:45 Lidocaine HCl 10 ml Q6HR PO 01/11/25 12:00 01/17/25 11:59 10 ML Nystatin 5 ml Q6HR MT 01/11/25 12:00 01/17/25 11:59 5 ML Trazodone HCl 50 mg HS PRN PO 01/12/25 00:45 01/17/25 00:16 50 MG Atorvastatin Calcium 10 mg HS PO 01/13/25 22:00 01/16/25 22:15 10 MG Cholecalciferol 2,000 unit DAILY PO 01/14/25 10:00 01/17/25 10:40 2,000 UNIT Folic Acid 1 mg DAILY PO 01/14/25 10:00 01/17/25 10:39 1 MG Gabapentin 800 mg TID PO 01/13/25 14:12 Oxybutynin Chloride 10 mg BID PO 01/13/25 13:45 01/17/25 10:39 10 MG Metoprolol Tartrate 25 mg BID PO 01/14/25 10:00 01/17/25 10:40 25 MG Pantoprazole Sodium 40 mg DAILY@0600 PO 01/17/25 06:00 01/17/25 05:41 40 MG Morphine Sulfate 2 mg Q4HPRN PRN IV 01/16/25 22:00 01/16/25 22:13 2 MG Examination: GENERAL:Normal, LUNGS:Normal, CVS:Normal, ABDOMEN:Normal, SKIN:Normal, NEURO:Normal laboratory and microbiology Laboratory Tests 01/17/25 08:25 Test 01/17/25 08:25 Range/Units Serum Glucose 96 74-106 mg/dL Labs and/or images reviewed: Labs reviewed by me, Image(s) reviewed by me Problem List/Assessment/Plan Problem List/Assessment/Plan 1. Oral sores Monitor, IV abx, Lidocaine swish and swallow, Nystatin swish and spit 2. Thrombocytopenia Monitor, transfuse platelets 3. Smoker Monitor, smoking cessation education 4. Pharyngitis Monitor, throat swab 5. CMV positive Monitor, ID consult, antivirals Assessment/Plan Subjective: Patient is awake and alert. Objective: Patient had complaints of generalized weakness and throat pain. Patient was found to have mouth sores. CMV is positive. My colleague did discuss case with Hematology who recommended obtaining CMV PCR however Infectious Disease DC the order. I discussed case with Hematology on 01/15 and said to wait for flow cytometry to determine if patient will possibly need bone marrow biopsy to rule out CLL. Wbcs improved to 1.9 and plts improved to 140. Per Infectious Disease hold off on antiviral to thrombocytopenia. need recommendations from cariology on when to resume aspirin. Plan: Continue nystatin and lidocaine swish and swallow. Continue pain medications as needed. Monitor platelet count. Transfuse as necessary. Hold off on steroids if patient is positive for CMV. ID recommendations appreciated. awaiting flow cytometry results. Need cardiac recommendation to resume aspirin. Plan discussed with: Patient My Orders My Orders Orders - FISH OTERO Procedure Category Date Status Time Pantoprazole Tablet PHA 01/17/25 In Process (Protonix Tablet) 06:00 Date of Service: Jan 17, 2025 Billing Provider: ROSS PRIEST MD Common Visit Codes: [id number] INP/OBS CARE (MOD) CC Plasma Assessment Blood Product Administration S: [id number] FISH OTERO Jan 17, 2025 12:37
--- NOTE | 2025-01-17 18:45 | DVHINCON2 ---
Date of service: Jan 17, [address] birch Reason for Consultation Throat pain throat ulcers History of Present Illness This 79-year-old female with a history of rheumatoid arthritis Crohn's disease coronary artery disease status post stent placement is admitted with complaints of throat pain and lesions around the mouth And was evaluated and thought to have CMV disease in the throat pain is persiste nt and hence the reason for the GI consult No history of any hematemesis melena History of any severe symptoms of Crohn's at this time Past Medical History Rheumatoid arthritis Crohn's disease coronary artery Past Surgical History Coronary stent Family History Non contributory Social History Denied smoking or drink Allergies: Coded Allergies: NO KNOWN ALLERGIES (Unverified , 03/05/24) Home Meds Active Scripts Alum & Mag Hydrox-Simethicone (Magic Mouthwash) 80 Ml Ss, 80 ML MT TIDPRN PRN for 10 Days, #200 ML 0 Refills Prov:LB FONSECA DREDGE PUMP OPERATOR 01/07/25 Azithromycin (Azithromycin) 250 Mg Tab, 250 MG PO DAILY MDD 500 for 5 Days, #6 TAB 0 Refills 2 TABLETS ORALLY ON DAY ONE, THEN 1 TABLET ORALLY DAILY FOR 4 DAYS Prov:LB FONSECA [employer]EDGE PU[employer] OPERATOR 01/07/25 Reported Medications Hydrocodone-Acetaminophen (Hydrocodone Bitartrate/AC 10-325 mg) 1 Tab Tab, 1 TAB PO [id number] for pain, TAB 01/12/25 Cholecalciferol (VITAMIN D3) 2,000 Unit Tab, 1 TAB PO DAILY, #30 TAB 5 Refills 01/12/25 Metoprolol Tartrate (Metoprolol Tartrate) 25 Mg Tab, 25 MG PO BID for 30 Days, M G 01/12/25 Gabapentin (Gabapentin) 800 Mg Tab, 800 MG PO TID, TAB 01/12/25 Folic Acid (Folic Acid) 1 Mg Tab, 1 MG PO DAILY for 30 Days, MG 01/12/25 Oxybutynin Chloride (Oxybutynin Chloride) 2.5 Mg Tab, 10 MG PO, TAB 01/11/25 Pantoprazole Sodium Sesquihydr (Pantoprazole Sodium) 40 Mg Tab, 40 MG PO, TAB 01/11/25 Clopidogrel Bisulfate (CLOPIDOGREL) 75 Mg Tab, 1 TAB PO DAILY, #90 TAB 1 Refill 01/11/25 Atorvastatin Calcium (ATORVASTATIN CALCIUM) 10 Mg Tab, 1 TAB PO DAILY, #30 TAB 5 Refills 01/11/25 Methotrexate (Methotrexate) 2.5 Mg Tab, 2.5 MG PO, MG 01/11/25 Gabapentin (Gabapentin) 600 Mg Tab, 600 MG PO TID for 30 Days, MG 01/11/25 Current Medications Current Medications Medications (Trade) Dose Ordered Sig/Damian Route PRN Reason Start Time Stop Time Status Last Admin Pantoprazole Sodium (Protonix Tablet) 40 mg DAILY@0600 PO 01/17/25 06:00 01/17/25 05:41 Morphine Sulfate 2 mg Q4HPRN PRN IV SEVERE PAIN (7-10 PAIN SCALE) 01/16/25 22:00 01/16/25 22:13 Review of Systems Unremarkable Vital Signs Vital Signs Date Time Temp Pulse Resp B/P (MAP) Pulse Ox O2 Delivery O2 Flow Rate FiO2 01/17/25 16:54 97.3 54 17 123/68 (86) 96 97.3 01/17/25 08:00 Room Air* 0 21 Physical Exam Thin built female in no acute distress HEENT examination no pallor no icterus Could not appreciate any significant lesions around the mouth patient was not able to cooperate properly for a good evaluation Vitals stable Lungs are clear Cardiovascular unremarkable abdomen is soft nontender no masses Extremities no edema no varicosities Neuro grossly intact Labs/Diagnostic Data Labs Test 01/17/25 08:25 01/16/25 10:26 01/15/25 11:15 01/15/25 09:23 Range/Units White Blood Count 1.9 #L 4.4-10.8 10^3/uL Red Blood Count 3.89 L 4.0-5.20 10^6/uL Hemoglobin 12.5 12.2-16.2 g/dL Hematocrit 37.0 36.0-46.0 % Mean Corpuscular Volume 95.1 80.0-100.0 fL Mean Corpuscular Hemoglobin 32.1 H 28.0-32.0 pg Mean Corpuscular Hemoglobin Concent 33.7 32.0-36.0 g/dL Red Cell Distribution Width 15.4 H 11.8-14.3 % Platelet Count 140 140-450 10^3/uL Mean Platelet Volume 8.4 6.9-10.8 fL Neutrophils (%) (Auto) 37.0-80.0 % Lymphocytes (%) (Auto) 10.0-50.0 % Monocytes (%) (Auto) 0.0-12.0 % Basophils (%) (Auto) 0.0-2.0 % Neutrophils # (Auto) 1.6-8.6 10 ^3/uL Lymphocytes # (Auto) 0.4-5.4 10 ^3/uL Monocytes # (Auto) 0-1.3 10 ^3/uL Differential Total Cells Counted 100.0 100 Neutrophils % (Manual) 4 L 37.0-80.0 Band Neutrophils % (Manual) 2 Lymphocytes % (Manual) 84 H 10.0-50.0 Monocytes % (Manual) 1 0-12 Eosinophils % (Manual) 9 H 0-7 Basophils % (Manual) 0 0.0-2.0 Metamyelocytes % (manual) 0 Myelocytes % (Manual) 0 Promyelocytes % (Manual) 0 Blast Cells % (Manual) 0 Reactive Lymphocytes 0 Platelet Estimate Adequate Sodium Level 143 136-145 mmol/L Potassium Level 3.7 3.5-5.1 mmol/L Chloride Level 108 H 98-107 mmol/L Carbon Dioxide Level 26 20-31 mmol/L Anion Gap 9 5-15 Blood Urea Nitrogen 9 9-23 mg/dL Creatinine 0.61 0.550-1.02 mg/dL Glomerular Filtration Rate Calc 90 >90 mL/min BUN/Creatinine Ratio 14.8 10.0-20.0 Serum Glucose 96 74-106 mg/dL Calcium Level 9.4 8.7-10.4 mg/dL Magnesium Level 1.9 1.6-2.6 mg/dL Total Bilirubin 0.5 0.2-1.0 mg/dL Aspartate Amino Transferase (AST) 20 13-40 U/L Alanine Aminotransferase (ALT) 12 7-40 U/L Alkaline Phosphatase 77 46-116 U/L Total Protein 7.5 5.7-8.2 g/dL Albumin 4.0 3.2-4.8 g/dL Test 01/14/25 05:24 01/13/25 10:40 01/12/25 19:59 01/12/25 15:49 Range/Units HIV (1&2) Antibody Deferred Negative Anisocytosis (manual) Slight Miscellaneous [facility] Hepatitis B Surface Antigen Negative Negative Hepatitis C Antibody Negative Negative Haptoglobin 150 41-333 mg/dL Anti-Nuclear Antibody Screen Positive H Negative Hepatitis A IgM Antibody Negative Hepatitis B Core IgM Antibody Negative Negative Test 01/12/25 13:57 01/12/25 05:39 01/12/25 05:29 Range/Units Prothrombin Time 11.9 H 9.3-11.8 sec Prothrombin Time INR 1.14 0.9-1.15 Fibrinogen 276 177-375 mg/dL Vitamin B12 Level 492 211-911 pg/mL Folic Acid 15.92 >5.38 ng/mL Cytomegalovirus IgG Antibody >10.00 H 0.00-0.59 U/mL Cytomegalovirus IgM Antibody 49.4 H 0.0-29.9 AU/mL Urine Color Light-yellow Yellow Urine Clarity Clear Clear Urine pH 6.0 5.0-9.0 Urine Specific [place] 1.010 1.001-1.035 Urine Protein Negative Negative Urine Ketones Negative Negative Urine Blood Trace H Negative /uL Urine Nitrite Negative Negative Urine Bilirubin Negative Negative Urine Urobilinogen Normal Negative mg/dL Urine Leukocyte Esterase Negative Negative /uL Urine RBC 2 0 - 4 /hpf Urine Microscopic WBC < 1 0-5 /HPF Urine Squamous Epithelial Cells None seen <5 /hpf Urine Bacteria None seen None Seen /hpf Urine Glucose Normal Normal mg/dL Eosinophils (%) (Auto) 0.1 0.0-7.0 % Eosinophils # (Auto) 0 0-0.8 10 ^3/uL Basophils # (Auto) 0 0-0.2 10 ^3/uL Nucleated Red Blood Cells 0.0 % Reticulocyte Count (auto) 0.41 L 0.5-1.5 % Lactate Dehydrogenase 196 120-246 U/L Thyroid Stimulating Hormone (TSH) 0.69 0.55-4.78 uIU/mL Assessment A 79year-old with a history of rheumatoid arthritis Crohn's disease coronary artery disease patient has been on steroids as well as methotrexate in the past he was also on Humira for two years stopped in the last one year Patient is on Plavix Physical examination is essentially unremarkable at this time Patient has no active Crohn's disease symptoms at this time Plan/Recommendation Monitor the blood count Hematology consult Continue symptomatic treatment with mouthwashes ID consult see if any other medication to be used for the CMV If significant dysphagia or other symptoms may need endoscopic evaluation Thank you Dr. Odessa Cain discussed with: Patient PIERRE REGALADO MD Jan 17, 2025 18:45
[2025-01-18] VITALS (7 sets, daily range): BP systolic 98–139; BP diastolic 49–66; PULSE 57–98; RESP 16–18; TEMP 98–100.4; O2SAT 93–97
--- NOTE | 2025-01-18 09:12 | DVHPN2 ---
Progress Note - Dictate Date Seen: Jan 18, 2025 Medical Necessity Reason Pt with a Central, PICC or Fol: No vital signs Vital Sign Date Time Temp Pulse Resp B/P (MAP) Pulse Ox O2 Delivery O2 Flow Rate FiO2 01/18/25 01:40 98.4 57 16 98/49 (65) 95 98.4 01/17/25 20:00 Room Air* 0 21 Total Intake and Output 01/17/25 01/17/25 01/18/25 15:00 23:00 07:00 Intake Total 700 ml 400 ml Balance 700 ml 400 ml medications Current Medications Medications Dose Ordered Sig/Damian Route Start Time Stop Time Status Last Admin Dose Admin Acetaminophen/ Hydrocodone Bitart 1 tab Q4HP PRN PO 01/11/25 10:45 01/18/25 05:59 1 TAB Ondansetron HCl 4 mg Q4HP PRN IV 01/11/25 10:45 01/16/25 21:35 4 MG Docusate Sodium 100 mg BIDPRN PRN PO 01/11/25 10:45 Acetaminophen 650 mg Q6HP PRN PO 01/11/25 10:45 Lidocaine HCl 10 ml Q6HR PO 01/11/25 12:00 01/18/25 05:59 10 ML Nystatin 5 ml Q6HR MT 01/11/25 12:00 01/18/25 05:59 5 ML Trazodone HCl 50 mg HS PRN PO 01/12/25 00:45 01/17/25 21:40 50 MG Atorvastatin Calcium 10 mg HS PO 01/13/25 22:00 01/17/25 21:33 10 MG Cholecalciferol 2,000 unit DAILY PO 01/14/25 10:00 01/17/25 10:40 2,000 UNIT Folic Acid 1 mg DAILY PO 01/14/25 10:00 01/17/25 10:39 1 MG Gabapentin 800 mg TID PO 01/13/25 14:12 Oxybutynin Chloride 10 mg BID PO 01/13/25 13:45 01/17/25 21:33 10 MG Metoprolol Tartrate 25 mg BID PO 01/14/25 10:00 01/17/25 21:32 25 MG Pantoprazole Sodium 40 mg DAILY@0600 PO 01/17/25 06:00 01/18/25 05:59 40 MG Morphine Sulfate 2 mg Q4HPRN PRN IV 01/16/25 22:00 01/16/25 22:13 2 MG laboratory and microbiology Laboratory Tests 01/17/25 08:25 Test 01/17/25 08:25 Range/Units Serum Glucose 96 74-106 mg/dL Assessment/Plan Patient is a 79-year-old female who presented to the hospital with sore throat and white lesions in the mouth. It seems that the patient presented few days back and then again to emergency room. She was found to have thrombocytopenia and has received platelet transfusion since admission. It is of note that the patient does have old history of coronary artery disease and has had PTCA in 2000 (in [facility]). She has been kept on aspirin with Plavix as outpatient since then. She denies any recent chest pains or dyspnea on exertion. Primary team requested for Cardiology consultation as they have decided to hold back on anticoagulation/antiplatelet therapy. Patient actually came to our office back in 2021 and was lost to follow-up since then. She denies any leg swellings. She denies palpitations. It is of note that she is active cigarette smoker and does carry old history of possible COPD. She does complain of chronic cough. Elderly female. Not in acute distress. Lying flat in bed. No JVD. Mucosa is pink and wet. No carotid bruit. Not using accessory muscles of breathing. Scattered rhonchi in the lungs is heard. Cardiac: Regular, no thrill/gallop. Systolic murmur 2/6 in the apex is heard. Abdomen is soft. Bowel sound is positive. There is no gross mass/hepatomegaly. There is no peripheral edema. Dorsalis pedis is 2+ bilateral. She does have finger changes in favor of typical rheumatoid arthritis sequela Past medical history includes coronary artery disease and status post PCI in 2000 (at [facility]), hyperlipidemia, rheumatoid arthritis, Crohn's disease, chronic low back pain and COPD. She has had back surgeries before. She smokes cigarettes for many decades. She has been kept on dual antiplatelet therapy (aspirin/Plavix) for long-term. Echocardiogram of May 17, 2022 (performed in the office) revealed ejection fraction of 65-70%, trace MR/TR/PI and right ventricular systolic pressure of less than 35 mm Hg. Platelet: 18 - 22 - 18 - 42 - 33 - 63 - 105 - 140 WBC: 4.9 - 2.7 - 6.1 - 3.2 - 3.1 - 1.8 - 2.6 - 1.9 Hemoglobin: 12.7 - 12.5 - 11.6 - 12.6 - 11.8 - 12.4 - 12.9 - 12.5 Creatinine: 0.66 - 0.48 - 0.52 - 0.59 - 0.56 - 0.61 Potassium: 3.6 - 3.5 - 3.4 - 3.2 - 3.6 - 3.7 TSH: 0.69 Chest x-ray revealed: IMPRESSION: No acute cardiopulmonary disease. EKG: NSR, non-specific ST T changes Tele: sinus rhythm Echocardiogram revealed: Technically difficult study secondary to poor acoustic windows. Left ventricle: Left ventricle was normal-sized. Left ventricular systolic function was hyperdynamic. LVEF was around 71%. There was no gross wall motion abnormality. Right ventricle was normal-sized with normal systolic function. Both atria were normal-sized. Aortic valve was not well visualized. There was no aortic insufficiency/stenosis. There was trace mitral and tricuspid regurgitation. Pulmonary valve was not visualized. As there was no good tricuspid regurgitation jet, right ventricular systolic pressure could not be estimated. There was no pericardial effusion. IVC was not visualized. Patient is a 79-year-old female who presented with throat pain and thrombocytopenia. Has received platelet transfusion since admission. Presentation questions component of the pharyngitis. Does have baseline history of Crohn disease/rheumatoid arthritis. Is on methotrexate as outpatient. Could the above have contributed to the clinical picture with significant thrombocytopenia? Patient does have baseline history of old coronary artery disease for which had PTCA in 2000. Cardiac-galan has been nonsymptomatic. Has been kept on dual antiplatelet therapy as outpatient. As it has been many years since cardiac stenting, dual antiplatelet therapy can be held this point. Presentation is not considered acute coronary syndrome. Clinically, no sign for acute heart failure. Patient does smoke and has been smoking for long time. History questions component of COPD/emphysema. ID is consulted. GI on the case. Because of significant leukopenia, the patient was transferred to isolation room for reverse isolation. Thrombocytopenia Pneumonitis Pharyngitis Pancytopenia History of coronary artery disease, status post PCI, many years ago Hyperlipidemia Rheumatoid arthritis Crohn's disease COPD Active cigarette smoker Cardiac suggestion for management: Manage on telemetry Follow-up electrolytes and kidney function tests and correct abnormalities. You can hold antiplatelet therapy for now Consider Hematology/Oncology evaluation Further evaluation and management depends on the above and clinical course A total of 55 minutes was spent reviewing the patient record, examining the patient, making a diagnostic and therapeutic plan, discussing this plan with medical personnel, following up on diagnostic studies and following the patient for clinical stability excluding any and all procedures. At least 50% of this time was spent in direct, [id number] contact. Thank you for allowing me to participate in this patient's care. Further recommendations will depend on patient's clinical course. Please do not hesitate to contact me if you have any questions or concerns. This medical document was created using electronic medical record system with [employer] computerized dictation system. Although this document has been carefully reviewed, there may still be some phonetic and typographical errors. These areas are purely typographical due to the imperfection of the software programs, and do not reflect any compromise in the patient's medical care Plan discussed with: Patient, Other (nurse) CC Plasma Assessment Blood Product Administration S: [id number] PIPPA EDWARDS MD Jan 18, 2025 09:12
[2025-01-18] MEDS: ACETAMINOPHEN 325 MG TAB PO PRN (10:01)
--- NOTE | 2025-01-18 12:24 | DVHPN2 ---
Progress Note - Dictate Date Seen: Jan 18, 2025 Medical Necessity Reason Pt with a Central, PICC or Fol: No vital signs Vital Sign Date Time Temp Pulse Resp B/P (MAP) Pulse Ox O2 Delivery O2 Flow Rate FiO2 01/18/25 09:56 57 102/54 01/18/25 09:00 98.0 16 96 98.0 01/17/25 20:00 Room Air* 0 21 Total Intake and Output 01/17/25 01/17/25 01/18/25 15:00 23:00 07:00 Intake Total 700 ml 400 ml Balance 700 ml 400 ml medications Current Medications Medications Dose Ordered Sig/Damian Route Start Time Stop Time Status Last Admin Dose Admin Acetaminophen/ Hydrocodone Bitart 1 tab Q4HP PRN PO 01/11/25 10:45 01/18/25 05:59 1 TAB Ondansetron HCl 4 mg Q4HP PRN IV 01/11/25 10:45 01/16/25 21:35 4 MG Docusate Sodium 100 mg BIDPRN PRN PO 01/11/25 10:45 Acetaminophen 650 mg Q6HP PRN PO 01/11/25 10:45 01/18/25 10:01 650 MG Lidocaine HCl 10 ml Q6HR PO 01/11/25 12:00 01/18/25 05:59 10 ML Nystatin 5 ml Q6HR MT 01/11/25 12:00 01/18/25 05:59 5 ML Trazodone HCl 50 mg HS PRN PO 01/12/25 00:45 01/17/25 21:40 50 MG Atorvastatin Calcium 10 mg HS PO 01/13/25 22:00 01/17/25 21:33 10 MG Cholecalciferol 2,000 unit DAILY PO 01/14/25 10:00 01/18/25 09:53 2,000 UNIT Folic Acid 1 mg DAILY PO 01/14/25 10:00 01/18/25 09:54 1 MG Gabapentin 800 mg TID PO 01/13/25 14:12 Oxybutynin Chloride 10 mg BID PO 01/13/25 13:45 01/18/25 09:53 10 MG Metoprolol Tartrate 25 mg BID PO 01/14/25 10:00 01/17/25 21:32 25 MG Pantoprazole Sodium 40 mg DAILY@0600 PO 01/17/25 06:00 01/18/25 05:59 40 MG Morphine Sulfate 2 mg Q4HPRN PRN IV 01/16/25 22:00 01/16/25 22:13 2 MG objective General Appearance: alert, no distress HEENT: EOMI, PERRLA, normal external inspect of ears, no icterus, no nasal drainage Neck: no carotid bruit, no jugular venous distention (JVD), no lymphadenopathy Chest: normal thorax Respiratory: clear to auscultation, normal air movement Cardiovascular: regular rate and rhythm, no diastolic murmur, no jugular venous distention (JVD), no rub, no systolic murmur Abdominal: soft, no hepatomegaly, no mass, no splenomegaly, no tenderness Musculoskeletal: no joint tenderness, no swelling Extremities: normal pulses, no calf tenderness, no clubbing, no cyanosis, no edema Skin: no bruising, no jaundice, no rash Neurological: alert, No focal deficit laboratory and microbiology Laboratory Tests 01/17/25 08:25 Test 01/17/25 08:25 Range/Units Serum Glucose 96 74-106 mg/dL Problem List 1. Oral sores Monitor, IV abx, Lidocaine swish and swallow, Nystatin swish and spit 2. Thrombocytopenia Monitor, transfuse platelets 3. Smoker Monitor, smoking cessation education 4. Pharyngitis Monitor, throat swab 5. CMV positive Monitor, ID consult, antivirals Assessment/Plan Subjective: Patient is awake and alert. Objective: I spoke with patient and patient's at bedside. Patient was admitted for generalized weakness and throat pain. Patient is positive for CMV. Possible workup to rule out CLL; flow cytometry is currently pending. I did call lab to confirm it was sent out on 01/15/25 and will result in 2 to 3 days. Valacyclovir was discontinued by ID for possible bone marrow suppression. Patient will continue oral swish and swallow with lidocaine and nystatin per ID recommendations. No plan for endoscopy at this time. Patient will follow up outpatient with rheumatology for RA. Patient has severe thrombocytopenia most likely related to home use of methotrexate and aspirin and Plavix. Patient has a history of CAD. Plan: Continue current treatment. One dose Neupogen ordered. Repeat labs ordered for AM. Await flow cytometry results. Need to rule out other CLL. Plan discussed with: Patient, Other CC Plasma Assessment Blood Product Administration S: [id number] ALEX GROSSMAN NP Jan 18, 2025 12:24
[2025-01-18] MEDS: FILGRASTIM (TBO) 300 MCG/0.5 ML SYRG SC ONE (13:06)
--- NOTE | 2025-01-18 18:35 | DVHPN2 ---
Consult Progress Note Date Seen: Jan 18, 2025 Subjective Patient reports: No new complaints, Feels better Objective vital signs Vital Sign Date Time Temp Pulse Resp B/P (MAP) Pulse Ox O2 Delivery O2 Flow Rate FiO2 01/18/25 17:00 98.5 81 16 114/55 (74) 95 98.5 01/18/25 08:00 Room Air* 0 21 Total Intake and Output 01/17/25 01/17/25 01/18/25 15:00 23:00 07:00 Intake Total 700 ml 400 ml Balance 700 ml 400 ml medications Current Medications Medications Dose Ordered Sig/Damian Route Start Time Stop Time Status Last Admin Dose Admin Acetaminophen/ Hydrocodone Bitart 1 tab Q4HP PRN PO 01/11/25 10:45 01/18/25 05:59 1 TAB Ondansetron HCl 4 mg Q4HP PRN IV 01/11/25 10:45 01/16/25 21:35 4 MG Docusate Sodium 100 mg BIDPRN PRN PO 01/11/25 10:45 Acetaminophen 650 mg Q6HP PRN PO 01/11/25 10:45 01/18/25 10:01 650 MG Lidocaine HCl 10 ml Q6HR PO 01/11/25 12:00 01/18/25 18:30 10 ML Nystatin 5 ml Q6HR MT 01/11/25 12:00 01/18/25 18:30 5 ML Trazodone HCl 50 mg HS PRN PO 01/12/25 00:45 01/17/25 21:40 50 MG Atorvastatin Calcium 10 mg HS PO 01/13/25 22:00 01/17/25 21:33 10 MG Cholecalciferol 2,000 unit DAILY PO 01/14/25 10:00 01/18/25 09:53 2,000 UNIT Folic Acid 1 mg DAILY PO 01/14/25 10:00 01/18/25 09:54 1 MG Gabapentin 800 mg TID PO 01/13/25 14:12 01/18/25 13:09 800 MG Oxybutynin Chloride 10 mg BID PO 01/13/25 13:45 01/18/25 09:53 10 MG Metoprolol Tartrate 25 mg BID PO 01/14/25 10:00 01/17/25 21:32 25 MG Pantoprazole Sodium 40 mg DAILY@0600 PO 01/17/25 06:00 01/18/25 05:59 40 MG Morphine Sulfate 2 mg Q4HPRN PRN IV 01/16/25 22:00 01/16/25 22:13 2 MG Examination: GENERAL:Normal, HEENT:Normal, LUNGS:Normal, CVS:Normal, ABDOMEN:Normal, MSK:Normal, NEURO:Normal laboratory and microbiology Laboratory Tests 01/17/25 08:25 Test 01/17/25 08:25 Range/Units Serum Glucose 96 74-106 mg/dL Problem List/Assessment/Plan Problem List/Assessment/Plan INFECTIOUS DISEASE CONSULT Plan/Recommendation Assessment/plan # mucositis with pharyngitis likely due to methotrexate use with possible inadequate dose of folic acid, ? Crohn's disease, other causes not ruled out yet. # pancytopenia -possibly due to ?CMV infection, Methotrexate use # history of coronary artery disease status post PCI # history of rheumatoid arthritis and Crohn disease -Currently on methotrexate, was previously on Humira Plan -We can continue Nystatin switch and swallow considering patient mentioned improvement in her symptoms after nystatin -No Recommendation for starting systemic antibiotics. -Order Hepatitis-B, C, HIV panel, Parvo-virus B19 for infectious workup for pancytopenia, AWAITING COMPLETE RESULTS -CMV positive IgG and IgM. -discontinue Valacyclovir as possible risk of more bone suppression. -We Recommend GI consult for evaluation for CMV Mucositis and possible Esophagitis as patient had dysphagia that started 2 weeks ago( currently resolved ) -We recommend Hem/onc consult for neutropenia workup and management. -Rheumatology consult for management for RA and Crohn's disease. -We recommend holding methotrexate till rheumatology evaluate the patient. ( mucositis and pancytopenia possibly caused by methotrexate use ) OUTPATIENT FOLLOW UP WITH INFECTIOUS DISEASE FOR CMV positive IgG and IgM, outpatient CMV PCR needed to evaluated for active viremia., Case discussion with Dr Willingham ----Addendum Dr. Dick Willingham Patient is a 79 year old female with a past medical history of rheumatid arthritis , Crohn disease , coronary artery disease . Status Post PCI , who presents with throat pain and lesions in the mouth. Patient says that she was recently seen in the ED due to herpangina. Was given acyclovir , however is not responding and now has low platelet count and leukopenia and oral ulcers . Denies any sexual activity , denies any recent sitcontex and has had the shingles vaccine . On Physical exam patient has not necessarily oral ulcer but has small plaques on the posterior surface of the phalangeal wall . Endorses difficulty swallowing. Assessment : Patient has mucositis , likely related to methotrexate and has not followed up with a bell spinner in over a year and is currently taking an acceptable dose but unknown levels of folic acid . use swish and swallow while oralplex arent consistent with fungal infection , ewa esophagitis can be difficult to distinguish without a biopsy 01/13: patient feels better with no new complaints and tolerating some PO intake . Methotrexate has been held, folic acid levels are normal . Awaiting results of serologies to assess for potential viral infiltration of the bone marrow . remains leukopenic and it is worsening but no new fevers . methotrexate can also cause pancytopenia 01/14: patient is doing well , no fevers or chills 01/15: patient is having some agitation at night and at times does not know where she is and is acting belligerent and wanting to go home . informed patient that she needs to wait for ulcers to heal . oral ulcers are almost gone and healing since stopping methotrexate . she is tolerating some food . Waiting for GI to evaluate patient. Patient is HIV negative , CMV negative , EVV negative 01/18: not having any dietary restrictions and no pain in the mouth when swallowing . mentating well and oral ulcers appear to have resolved Plan: - continue to hold all antibiotics and antivirals - recommend patient be seen my rheumatology to further evaluate current regimen as well as alternative treatment and consider alternative diagnosis such as Crohn disease , pancytopenia , mucositis - thrombocytopenia lends itself to bone marrow infiltration which can be seen in cmv disease , EPV disease , and HIV . would test for these viral infection , may need to encourage to treat at this time - recommend GI consultation for potential endoscopy - test for RSV 19 - Folic acid levels do not reflect risk for mucositis therefore reasonable to hold methotrexate in this setting - Recommend checking folic acid levels to determine if patient has any deficiencies Plan discussed with: Patient, Other CC Plasma Assessment Blood Product Administration S: [id number] GISELA BOLTON Jan 18, 2025 18:35 DICK WILLINGHAM MD Jan 28, 2025 07:48
[2025-01-19] VITALS (8 sets, daily range): BP systolic 106–145; BP diastolic 52–74; PULSE 66–91; RESP 7–18; TEMP 96.9–98.6; O2SAT 92–96
--- NOTE | 2025-01-19 07:02 | DVHPN2 ---
Progress Note - Dictate Date Seen: Jan 19, 2025 Medical Necessity Reason Pt with a Central, PICC or Fol: No vital signs Vital Sign Date Time Temp Pulse Resp B/P (MAP) Pulse Ox O2 Delivery O2 Flow Rate FiO2 01/19/25 05:00 98.6 89 16 145/74 (97) 93 98.6 01/18/25 20:00 Room Air* 0 21 Total Intake and Output 01/18/25 01/18/25 01/19/25 15:00 23:00 07:00 Intake Total 600 ml 0 ml Balance 600 ml 0 ml medications Current Medications Medications Dose Ordered Sig/Damian Route Start Time Stop Time Status Last Admin Dose Admin Acetaminophen/ Hydrocodone Bitart 1 tab Q4HP PRN PO 01/11/25 10:45 01/19/25 05:37 1 TAB Ondansetron HCl 4 mg Q4HP PRN IV 01/11/25 10:45 01/16/25 21:35 4 MG Docusate Sodium 100 mg BIDPRN PRN PO 01/11/25 10:45 Acetaminophen 650 mg Q6HP PRN PO 01/11/25 10:45 01/18/25 10:01 650 MG Lidocaine HCl 10 ml Q6HR PO 01/11/25 12:00 01/19/25 00:09 10 ML Nystatin 5 ml Q6HR MT 01/11/25 12:00 01/19/25 00:09 5 ML Trazodone HCl 50 mg HS PRN PO 01/12/25 00:45 01/18/25 21:12 50 MG Atorvastatin Calcium 10 mg HS PO 01/13/25 22:00 01/17/25 21:33 10 MG Cholecalciferol 2,000 unit DAILY PO 01/14/25 10:00 01/18/25 09:53 2,000 UNIT Folic Acid 1 mg DAILY PO 01/14/25 10:00 01/18/25 09:54 1 MG Gabapentin 800 mg TID PO 01/13/25 14:12 01/18/25 13:09 800 MG Oxybutynin Chloride 10 mg BID PO 01/13/25 13:45 01/18/25 21:17 10 MG Metoprolol Tartrate 25 mg BID PO 01/14/25 10:00 01/17/25 21:32 25 MG Pantoprazole Sodium 40 mg DAILY@0600 PO 01/17/25 06:00 01/19/25 05:31 40 MG Morphine Sulfate 2 mg Q4HPRN PRN IV 01/16/25 22:00 01/16/25 22:13 2 MG laboratory and microbiology Laboratory Tests 01/17/25 08:25 Test 01/17/25 08:25 Range/Units Serum Glucose 96 74-106 mg/dL Assessment/Plan Patient is a 79-year-old female who presented to the hospital with sore throat and white lesions in the mouth. It seems that the patient presented few days back and then again to emergency room. She was found to have thrombocytopenia and has received platelet transfusion since admission. It is of note that the patient does have old history of coronary artery disease and has had PTCA in 2000 (in [facility] [place] She has been kept on aspirin with Plavix as outpatient since then. She denies any recent chest pains or dyspnea on exertion. Primary team requested for Cardiology consultation as they have decided to hold back on anticoagulation/antiplatelet therapy. Patient actually came to our office back in 2021 and was lost to follow-up since then. She denies any leg swellings. She denies palpitations. It is of note that she is active cigarette smoker and does carry old history of possible COPD. She does complain of chronic cough. Elderly female. Not in acute distress. Lying flat in bed. No JVD. Mucosa is pink and wet. No carotid bruit. Not using accessory muscles of breathing. Scattered rhonchi in the lungs is heard. Cardiac: Regular, no thrill/gallop. Systolic murmur 2/6 in the apex is heard. Abdomen is soft. Bowel sound is positive. There is no gross mass/hepatomegaly. There is no peripheral edema. Dorsalis pedis is 2+ bilateral. She does have finger changes in favor of typical rheumatoid arthritis sequela Past medical history includes coronary artery disease and status post PCI in 2000 (at [facility] [place]), hyperlipidemia, rheumatoid arthritis, Crohn's disease, chronic low back pain and COPD. She has had back surgeries before. She smokes cigarettes for many decades. She has been kept on dual antiplatelet therapy (aspirin/Plavix) for long-term. Echocardiogram of May 17, 2022 (performed in the office) revealed ejection fraction of 65-70%, trace MR/TR/PI and right ventricular systolic pressure of less than 35 mm Hg. Platelet: 18 - 22 - 18 - 42 - 33 - 63 - 105 - 140 WBC: 4.9 - 2.7 - 6.1 - 3.2 - 3.1 - 1.8 - 2.6 - 1.9 Hemoglobin: 12.7 - 12.5 - 11.6 - 12.6 - 11.8 - 12.4 - 12.9 - 12.5 Creatinine: 0.66 - 0.48 - 0.52 - 0.59 - 0.56 - 0.61 Potassium: 3.6 - 3.5 - 3.4 - 3.2 - 3.6 - 3.7 TSH: 0.69 Chest x-ray revealed: IMPRESSION: No acute cardiopulmonary disease. EKG: NSR, non-specific ST T changes Tele: sinus rhythm Echocardiogram revealed: Technically difficult study secondary to poor acoustic windows. Left ventricle: Left ventricle was normal-sized. Left ventricular systolic function was hyperdynamic. LVEF was around 71%. There was no gross wall motion abnormality. Right ventricle was normal-sized with normal systolic function. Both atria were normal-sized. Aortic valve was not well visualized. There was no aortic insufficiency/stenosis. There was trace mitral and tricuspid regurgitation. Pulmonary valve was not visualized. As there was no good tricuspid regurgitation jet, right ventricular systolic pressure could not be estimated. There was no pericardial effusion. IVC was not visualized. Patient is a 79-year-old female who presented with throat pain and thrombocytopenia. Has received platelet transfusion since admission. Presentation questions component of the pharyngitis. Does have baseline history of Crohn disease/rheumatoid arthritis. Is on methotrexate as outpatient. Could the above have contributed to the clinical picture with significant thrombocytopenia? Patient does have baseline history of old coronary artery disease for which had PTCA in 2000. Cardiac-galan has been nonsymptomatic. Has been kept on dual antiplatelet therapy as outpatient. As it has been many years since cardiac stenting, dual antiplatelet therapy can be held this point. Presentation is not considered acute coronary syndrome. Clinically, no sign for acute heart failure. Patient does smoke and has been smoking for long time. History questions component of COPD/emphysema. ID is consulted. GI on the case. Because of significant leukopenia, the patient was transferred to isolation room for reverse isolation. Thrombocytopenia Pneumonitis Pharyngitis Pancytopenia History of coronary artery disease, status post PCI, many years ago Hyperlipidemia Rheumatoid arthritis Crohn's disease COPD Active cigarette smoker Cardiac suggestion for management: Manage on telemetry Follow-up electrolytes and kidney function tests and correct abnormalities. You can hold antiplatelet therapy for now Consider Hematology/Oncology evaluation Further evaluation and management depends on the above and clinical course A total of 55 minutes was spent reviewing the patient record, examining the patient, making a diagnostic and therapeutic plan, discussing this plan with medical personnel, following up on diagnostic studies and following the patient for clinical stability excluding any and all procedures. At least 50% of this time was spent in direct, [id number] contact. Thank you for allowing me to participate in this patient's care. Further recommendations will depend on patient's clinical course. Please do not hesitate to contact me if you have any questions or concerns. This medical document was created using electronic medical record system with [employer] computerized dictation system. Although this document has been carefully reviewed, there may still be some phonetic and typographical errors. These areas are purely typographical due to the imperfection of the software programs, and do not reflect any compromise in the patient's medical care Plan discussed with: Patient, Other (nurse) CC Plasma Assessment Blood Product Administration S: [id number] PIPPA EDWARDS MD Jan 19, 2025 07:02
[2025-01-19 13:23] LABS: Hematocrit 36.7 % (36.0-46.0); Hemoglobin 12.1 g/dL (12.2-16.2); Mean Corpuscular Hemoglobin 31.8 pg (28.0-32.0); Mean Corpuscular Hgb Conc. 33.1 g/dL (32.0-36.0); Platelet Count (auto) 225 10^3/uL (140-450); Red Blood Cells 3.82 10^6/uL (4.0-5.20); Red Cell Distribution Width 16.3 % (11.8-14.3); White Blood Cell 3.9 10^3/uL (4.4-10.8)
[2025-01-19 13:29] LABS: Basophils % (manual) 0 (0.0-2.0); Metamyelocytes % 0; Myelocytes % 0; Promyelocytes % 0; Reactive Lymphocytes 0
[2025-01-19 14:38] LABS: Band Neutrophils % (manual) 9; Blast Cells 1; Eosinophils % (manual) 1 (0-7); Lymphocytes % (manual) 58 (10.0-50.0); Monocytes % (manual) 13 (0-12); Platelet Estimate Adequate
--- NOTE | 2025-01-19 16:12 | DVHDS2 ---
Discharge Summary Date of Admission Jan 11, 2025 at 10:32 Date of Discharge: Jan 19, 2025 Labs/Diagnostic Data: Laboratory Results Test 01/19/25 13:09 01/17/25 08:25 01/16/25 10:26 01/15/25 11:15 White Blood Count 3.9 10^3/uL (4.4-10.8) Red Blood Count 3.82 10^6/uL (4.0-5.20) Hemoglobin 12.1 g/dL (12.2-16.2) Hematocrit 36.7 % (36.0-46.0) Mean Corpuscular Volume 96.0 fL (80.0-100.0) Mean Corpuscular Hemoglobin 31.8 pg (28.0-32.0) Mean Corpuscular Hemoglobin Concent 33.1 g/dL (32.0-36.0) Red Cell Distribution Width 16.3 % (11.8-14.3) Platelet Count 225 10^3/uL (140-450) Mean Platelet Volume 7.5 fL (6.9-10.8) Neutrophils (%) (Auto) % (37.0-80.0) Lymphocytes (%) (Auto) % (10.0-50.0) Monocytes (%) (Auto) % (0.0-12.0) Basophils (%) (Auto) % (0.0-2.0) Neutrophils # (Auto) 10 ^3/uL (1.6-8.6) Lymphocytes # (Auto) 10 ^3/uL (0.4-5.4) Monocytes # (Auto) 10 ^3/uL (0-1.3) Differential Total Cells Counted 100.0 (100) Neutrophils % (Manual) 18 (37.0-80.0) Band Neutrophils % (Manual) 9 Lymphocytes % (Manual) 58 (10.0-50.0) Monocytes % (Manual) 13 (0-12) Eosinophils % (Manual) 1 (0-7) Basophils % (Manual) 0 (0.0-2.0) Metamyelocytes % (manual) 0 Myelocytes % (Manual) 0 Promyelocytes % (Manual) 0 Blast Cells % (Manual) 1 Reactive Lymphocytes 0 Platelet Estimate Adequate Sodium Level 143 mmol/L (136-145) Potassium Level 3.7 mmol/L (3.5-5.1) Chloride Level 108 mmol/L (98-107) Carbon Dioxide Level 26 mmol/L (20-31) Anion Gap 9 (5-15) Blood Urea Nitrogen 9 mg/dL (9-23) Creatinine 0.61 mg/dL (0.550-1.02) Glomerular Filtration Rate Calc 90 mL/min (>90) BUN/Creatinine Ratio 14.8 (10.0-20.0) Serum Glucose 96 mg/dL (74-106) Calcium Level 9.4 mg/dL (8.7-10.4) Magnesium Level 1.9 mg/dL (1.6-2.6) Total Bilirubin 0.5 mg/dL (0.2-1.0) Aspartate Amino Transferase (AST) 20 U/L (13-40) Alanine Aminotransferase (ALT) 12 U/L (7-40) Alkaline Phosphatase 77 U/L (46-116) Total Protein 7.5 g/dL (5.7-8.2) Albumin 4.0 g/dL (3.2-4.8) Test 01/15/25 09:23 01/14/25 05:24 01/13/25 10:40 01/12/25 19:59 HIV (1&2) Antibody Deferred (Negative) Anisocytosis (manual) Slight Miscellaneous Referred Test (Refrg) Sent to [facility] Hepatitis B Surface Antigen Negative (Negative) Hepatitis C Antibody Negative (Negative) Test 01/12/25 15:49 01/12/25 13:57 01/12/25 05:39 01/12/25 05:29 Haptoglobin 150 mg/dL (41-333) Anti-Nuclear Antibody Screen Positive (Negative) Hepatitis A IgM Antibody Negative Hepatitis B Core IgM Antibody Negative (Negative) Prothrombin Time 11.9 sec (9.3-11.8) Prothrombin Time INR 1.14 (0.9-1.15) Fibrinogen 276 mg/dL (177-375) Vitamin B12 Level 492 pg/mL (211-911) Folic Acid 15.92 ng/mL (>5.38) Cytomegalovirus IgG Antibody >10.00 U/mL (0.00-0.59) Cytomegalovirus IgM Antibody 49.4 AU/mL (0.0-29.9) Urine Color Light-yellow (Yellow) Urine Clarity Clear (Clear) Urine pH 6.0 (5.0-9.0) Urine Specific [place] 1.010 (1.001-1.035) Urine Protein Negative (Negative) Urine Ketones Negative (Negative) Urine Blood Trace /uL (Negative) Urine Nitrite Negative (Negative) Urine Bilirubin Negative (Negative) Urine Urobilinogen Normal mg/dL (Negative) Urine Leukocyte Esterase Negative /uL (Negative) Urine RBC 2 /hpf (0 - 4) Urine Microscopic WBC < 1 /HPF (0-5) Urine Squamous Epithelial Cells None seen /hpf (<5) Urine Bacteria None seen /hpf (None Seen) Urine Glucose Normal mg/dL (Normal) Eosinophils (%) (Auto) 0.1 % (0.0-7.0) Eosinophils # (Auto) 0 10 ^3/uL (0-0.8) Basophils # (Auto) 0 10 ^3/uL (0-0.2) Nucleated Red Blood Cells 0.0 % Reticulocyte Count (auto) 0.41 % (0.5-1.5) Lactate Dehydrogenase 196 U/L (120-246) Thyroid Stimulating Hormone (TSH) 0.69 uIU/mL (0.55-4.78) Other Laboratory Tests 01/19/25 13:09 01/17/25 08:25 Final Diagnosis/Problems List PANCYTOPENIA MOST LIKELY R/T METHOTREXATE, ASA, AND PLAVIX STOP PLAVIX OK TO RESTART ASA- WILL NEED CBC IN 1 WEEK STOP METHOTREXATE UNTIL F/U WITH RHEUMATOLOGY WILL NEED CLOSE FOLLOW UP FOR FLOW CYTOMETRY RESULTS AND POSITIVE DAHLIA NEED TO R/O CLL Discharge Disposition: Home Discharge Instruct/Medications Diet: Cardiac 2g Na,low cholest Activity: No Restrictions, As Tolerated Follow Up/Referral: OUTPT ONCOLOGY DR BARLOW [facility]ATOLOG[facility] 1 WEEK Discharge Statement: "Patient was advised to return to the ER or call 911 if any headaches, dizziness, shortness of breath, chest pain, abdominal pain, bleeding, fevers, or worsening of medical condition. Patient was counseled about treatment plan, medications, possible side effects, patientverbalized understanding. All questions were answered to the best of my ability. This discharge took greater then 30 minutes in planning, reviewing documentation, counseling the patient, and discussing with other team members." ASSESSMENT ASSESSMENT Assessment PANCYTOPENIA MOST LIKELY R/T METHOTREXATE, ASA, AND PLAVIX STOP PLAVIX OK TO RESTART ASA- WILL NEED CBC IN 1 WEEK STOP METHOTREXATE UNTIL F/U WITH RHEUMATOLOGY WILL NEED CLOSE FOLLOW UP FOR FLOW CYTOMETRY RESULTS AND POSITIVE DAHLIA NEED TO R/O CLL ALEX GROSSMAN NP Jan 19, 2025 16:11
--- NOTE | 2025-01-19 16:28 | DVHPN2 ---
Progress Note - Dictate Date Seen: Jan 19, 2025 Medical Necessity Reason Pt with a Central, PICC or Fol: No vital signs Vital Sign Date Time Temp Pulse Resp B/P (MAP) Pulse Ox O2 Delivery O2 Flow Rate FiO2 01/19/25 13:30 96.9 76 17 109/52 (71) 92 96.9 01/18/25 20:00 Room Air* 0 21 Total Intake and Output 01/18/25 01/18/25 01/19/25 15:00 23:00 07:00 Intake Total 600 ml 0 ml Balance 600 ml 0 ml medications Current Medications Medications Dose Ordered Sig/Damian Route Start Time Stop Time Status Last Admin Dose Admin Acetaminophen/ Hydrocodone Bitart 1 tab Q4HP PRN PO 01/11/25 10:45 01/19/25 15:04 1 TAB Ondansetron HCl 4 mg Q4HP PRN IV 01/11/25 10:45 01/16/25 21:35 4 MG Docusate Sodium 100 mg BIDPRN PRN PO 01/11/25 10:45 Acetaminophen 650 mg Q6HP PRN PO 01/11/25 10:45 01/18/25 10:01 650 MG Lidocaine HCl 10 ml Q6HR PO 01/11/25 12:00 01/19/25 00:09 10 ML Nystatin 5 ml Q6HR MT 01/11/25 12:00 01/19/25 00:09 5 ML Trazodone HCl 50 mg HS PRN PO 01/12/25 00:45 01/18/25 21:12 50 MG Atorvastatin Calcium 10 mg HS PO 01/13/25 22:00 01/17/25 21:33 10 MG Cholecalciferol 2,000 unit DAILY PO 01/14/25 10:00 01/19/25 09:33 2,000 UNIT Folic Acid 1 mg DAILY PO 01/14/25 10:00 01/19/25 09:32 1 MG Gabapentin 800 mg TID PO 01/13/25 14:12 01/18/25 13:09 800 MG Oxybutynin Chloride 10 mg BID PO 01/13/25 13:45 01/19/25 09:33 10 MG Metoprolol Tartrate 25 mg BID PO 01/14/25 10:00 01/19/25 09:33 25 MG Pantoprazole Sodium 40 mg DAILY@0600 PO 01/17/25 06:00 01/19/25 05:31 40 MG Morphine Sulfate 2 mg Q4HPRN PRN IV 01/16/25 22:00 01/16/25 22:13 2 MG objective General Appearance: alert, no distress HEENT: EOMI, PERRLA, normal external inspect of ears, no icterus, no nasal drainage Neck: no carotid bruit, no jugular venous distention (JVD), no lymphadenopathy Chest: normal thorax Respiratory: clear to auscultation, normal air movement Cardiovascular: regular rate and rhythm, no diastolic murmur, no jugular venous distention (JVD), no rub, no systolic murmur Abdominal: soft, no hepatomegaly, no mass, no splenomegaly, no tenderness Musculoskeletal: no joint tenderness, no swelling Extremities: normal pulses, no calf tenderness, no clubbing, no cyanosis, no edema Skin: no bruising, no jaundice, no rash Neurological: alert, No focal deficit laboratory and microbiology Laboratory Tests 01/19/25 13:09 01/17/25 08:25 Test 01/17/25 08:25 Range/Units Serum Glucose 96 74-106 mg/dL Problem List 1. Oral sores Monitor, IV abx, Lidocaine swish and swallow, Nystatin swish and spit 2. Thrombocytopenia Monitor, transfuse platelets 3. Smoker Monitor, smoking cessation education 4. Pharyngitis Monitor, throat swab 5. CMV positive Monitor, ID consult, antivirals Assessment/Plan Subjective: Patient is awake and alert. Objective: Patient was admitted for pancytopenia and thrombocytopenia, most likely related to methotrexate use, aspirin, and Plavix. Patient was seen by cardiology. She will discontinue Plavix at discharge. Patient will stop methotrexate until she follows up with rheumatology. Platelet count is now within normal limits. Patient received 1 dose of Neupogen yesterday. Patient needs to rule out CLL. Flow cytometry is pending. Patient is requesting to be discharged. HIV also pending. DAHLIA is positive. Patient has rheumatoid arthritis. Plan: Continue current treatment. Patient states her cannot pick her up today and she wants to discharge in the morning. Additional labs are still pending. She will have close follow-up at Dr. Chang's office. Plan discussed with: Patient, Other CC Plasma Assessment Blood Product Administration S: [id number] ALEX GROSSMAN NP Jan 19, 2025 16:28
[2025-01-19] MEDS: ASPirin-EC 81 mg tab PO SCH (18:03)
[2025-01-20 01:00] VITALS: BP 123/75; PULSE 78; RESP 17; TEMP 98; O2SAT 95
[2025-01-20 05:00] VITALS: BP 114/69; PULSE 69; RESP 18; TEMP 97.7; O2SAT 93
--- NOTE | 2025-01-20 06:42 | DVHPN2 ---
Progress Note - Dictate Date Seen: Jan 20, 2025 Medical Necessity Reason Pt with a Central, PICC or Fol: No vital signs Vital Sign Date Time Temp Pulse Resp B/P (MAP) Pulse Ox O2 Delivery O2 Flow Rate FiO2 01/20/25 05:00 97.7 69 18 114/69 (84) 93 97.7 01/19/25 20:00 Room Air* 0 21 Total Intake and Output 01/19/25 01/19/25 01/20/25 15:00 23:00 07:00 Intake Total 660 ml 0 ml Balance 660 ml 0 ml medications Current Medications Medications Dose Ordered Sig/Damian Route Start Time Stop Time Status Last Admin Dose Admin Acetaminophen/ Hydrocodone Bitart 1 tab Q4HP PRN PO 01/11/25 10:45 01/20/25 05:15 1 TAB Ondansetron HCl 4 mg Q4HP PRN IV 01/11/25 10:45 01/16/25 21:35 4 MG Docusate Sodium 100 mg BIDPRN PRN PO 01/11/25 10:45 Acetaminophen 650 mg Q6HP PRN PO 01/11/25 10:45 01/18/25 10:01 650 MG Lidocaine HCl 10 ml Q6HR PO 01/11/25 12:00 01/19/25 18:03 10 ML Nystatin 5 ml Q6HR MT 01/11/25 12:00 01/19/25 18:03 5 ML Trazodone HCl 50 mg HS PRN PO 01/12/25 00:45 01/18/25 21:12 50 MG Atorvastatin Calcium 10 mg HS PO 01/13/25 22:00 01/17/25 21:33 10 MG Cholecalciferol 2,000 unit DAILY PO 01/14/25 10:00 01/19/25 09:33 2,000 UNIT Folic Acid 1 mg DAILY PO 01/14/25 10:00 01/19/25 09:32 1 MG Gabapentin 800 mg TID PO 01/13/25 14:12 01/18/25 13:09 800 MG Oxybutynin Chloride 10 mg BID PO 01/13/25 13:45 01/19/25 21:05 10 MG Metoprolol Tartrate 25 mg BID PO 01/14/25 10:00 01/19/25 09:33 25 MG Pantoprazole Sodium 40 mg DAILY@0600 PO 01/17/25 06:00 01/20/25 05:15 40 MG Morphine Sulfate 2 mg Q4HPRN PRN IV 01/16/25 22:00 01/16/25 22:13 2 MG Aspirin 81 mg DAILY PO 01/19/25 16:30 01/19/25 18:03 81 MG laboratory and microbiology Laboratory Tests 01/19/25 13:09 01/17/25 08:25 Test 01/17/25 08:25 Range/Units Serum Glucose 96 74-106 mg/dL Assessment/Plan Patient is a 79-year-old female who presented to the hospital with sore throat and white lesions in the mouth. It seems that the patient presented few days back and then again to emergency room. She was found to have thrombocytopenia and has received platelet transfusion since admission. It is of note that the patient does have old history of coronary artery disease and has had PTCA in 2000 (in [facility]). She has been kept on aspirin with Plavix as outpatient since then. She denies any recent chest pains or dyspnea on exertion. Primary team requested for Cardiology consultation as they have decided to hold back on anticoagulation/antiplatelet therapy. Patient actually came to our office back in 2021 and was lost to follow-up since then. She denies any leg swellings. She denies palpitations. It is of note that she is active cigarette smoker and does carry old history of possible COPD. She does complain of chronic cough. Elderly female. Not in acute distress. Lying flat in bed. No JVD. Mucosa is pink and wet. No carotid bruit. Not using accessory muscles of breathing. Scattered rhonchi in the lungs is heard. Cardiac: Regular, no thrill/gallop. Systolic murmur 2/6 in the apex is heard. Abdomen is soft. Bowel sound is positive. There is no gross mass/hepatomegaly. There is no peripheral edema. Dorsalis pedis is 2+ bilateral. She does have finger changes in favor of typical rheumatoid arthritis sequela Past medical history includes coronary artery disease and status post PCI in 2000 (at [facility]), hyperlipidemia, rheumatoid arthritis, Crohn's disease, chronic low back pain and COPD. She has had back surgeries before. She smokes cigarettes for many decades. She has been kept on dual antiplatelet therapy (aspirin/Plavix) for long-term. Echocardiogram of May 17, 2022 (performed in the office) revealed ejection fraction of 65-70%, trace MR/TR/PI and right ventricular systolic pressure of less than 35 mm Hg. Platelet: 18 - 22 - 18 - 42 - 33 - 63 - 105 - 140 - 225 WBC: 4.9 - 2.7 - 6.1 - 3.2 - 3.1 - 1.8 - 2.6 - 1.9 - 3.9 Hemoglobin: 12.7 - 12.5 - 11.6 - 12.6 - 11.8 - 12.4 - 12.9 - 12.5 - 12.1 Creatinine: 0.66 - 0.48 - 0.52 - 0.59 - 0.56 - 0.61 Potassium: 3.6 - 3.5 - 3.4 - 3.2 - 3.6 - 3.7 TSH: 0.69 Chest x-ray revealed: IMPRESSION: No acute cardiopulmonary disease. EKG: NSR, non-specific ST T changes Tele: sinus rhythm Echocardiogram revealed: Technically difficult study secondary to poor acoustic windows. Left ventricle: Left ventricle was normal-sized. Left ventricular systolic function was hyperdynamic. LVEF was around 71%. There was no gross wall motion abnormality. Right ventricle was normal-sized with normal systolic function. Both atria were normal-sized. Aortic valve was not well visualized. There was no aortic insufficiency/stenosis. There was trace mitral and tricuspid regurgitation. Pulmonary valve was not visualized. As there was no good tricuspid regurgitation jet, right ventricular systolic pressure could not be estimated. There was no pericardial effusion. IVC was not visualized. Patient is a 79-year-old female who presented with throat pain and thrombocytopenia. Has received platelet transfusion since admission. Presentation questions component of the pharyngitis. Does have baseline history of Crohn disease/rheumatoid arthritis. Is on methotrexate as outpatient. Could the above have contributed to the clinical picture with significant thrombocytopenia? Patient does have baseline history of old coronary artery disease for which had PTCA in 2000. Cardiac-galan has been nonsymptomatic. Has been kept on dual antiplatelet therapy as outpatient. As it has been many years since cardiac stenting, dual antiplatelet therapy can be held this point. Presentation is not considered acute coronary syndrome. Clinically, no sign for acute heart failure. Patient does smoke and has been smoking for long time. History questions component of COPD/emphysema. ID is consulted. GI on the case. Because of significant leukopenia, the patient was transferred to isolation room for reverse isolation. Thrombocytopenia Pneumonitis Pharyngitis Pancytopenia History of coronary artery disease, status post PCI, many years ago Hyperlipidemia Rheumatoid arthritis Crohn's disease COPD Active cigarette smoker Cardiac suggestion for management: Manage on telemetry Follow-up electrolytes and kidney function tests and correct abnormalities. When stable, start ASA: 81 mg daily Consider Hematology/Oncology evaluation Further evaluation and management depends on the above and clinical course A total of 55 minutes was spent reviewing the patient record, examining the patient, making a diagnostic and therapeutic plan, discussing this plan with medical personnel, following up on diagnostic studies and following the patient for clinical stability excluding any and all procedures. At least 50% of this time was spent in direct, [id number] contact. Thank you for allowing me to participate in this patient's care. Further recommendations will depend on patient's clinical course. Please do not hesitate to contact me if you have any questions or concerns. This medical document was created using electronic medical record system with [employer] computerized dictation system. Although this document has been carefully reviewed, there may still be some phonetic and typographical errors. These areas are purely typographical due to the imperfection of the software programs, and do not reflect any compromise in the patient's medical care Plan discussed with: Other (nurse) CC Plasma Assessment Blood Product Administration S: [id number] PIPPA EDWARDS MD Jan 20, 2025 06:42
[2025-01-20 07:45] VITALS: RESP 16
[2025-01-20 09:00] VITALS: BP 121/55; PULSE 78; RESP 18; TEMP 98.2; O2SAT 92
--- NOTE | 2025-01-20 09:01 | DVHDS2 ---
Discharge Summary Date of Admission Jan 11, 2025 at 10:32 Date of Discharge: Jan 20, 2025 Labs/Diagnostic Data: Laboratory Results Test 01/19/25 13:09 01/17/25 08:25 01/16/25 10:26 01/15/25 11:15 White Blood Count 3.9 10^3/uL (4.4-10.8) Red Blood Count 3.82 10^6/uL (4.0-5.20) Hemoglobin 12.1 g/dL (12.2-16.2) Hematocrit 36.7 % (36.0-46.0) Mean Corpuscular Volume 96.0 fL (80.0-100.0) Mean Corpuscular Hemoglobin 31.8 pg (28.0-32.0) Mean Corpuscular Hemoglobin Concent 33.1 g/dL (32.0-36.0) Red Cell Distribution Width 16.3 % (11.8-14.3) Platelet Count 225 10^3/uL (140-450) Mean Platelet Volume 7.5 fL (6.9-10.8) Neutrophils (%) (Auto) % (37.0-80.0) Lymphocytes (%) (Auto) % (10.0-50.0) Monocytes (%) (Auto) % (0.0-12.0) Basophils (%) (Auto) % (0.0-2.0) Neutrophils # (Auto) 10 ^3/uL (1.6-8.6) Lymphocytes # (Auto) 10 ^3/uL (0.4-5.4) Monocytes # (Auto) 10 ^3/uL (0-1.3) Differential Total Cells Counted 100.0 (100) Neutrophils % (Manual) 18 (37.0-80.0) Band Neutrophils % (Manual) 9 Lymphocytes % (Manual) 58 (10.0-50.0) Monocytes % (Manual) 13 (0-12) Eosinophils % (Manual) 1 (0-7) Basophils % (Manual) 0 (0.0-2.0) Metamyelocytes % (manual) 0 Myelocytes % (Manual) 0 Promyelocytes % (Manual) 0 Blast Cells % (Manual) 1 Reactive Lymphocytes 0 Platelet Estimate Adequate Sodium Level 143 mmol/L (136-145) Potassium Level 3.7 mmol/L (3.5-5.1) Chloride Level 108 mmol/L (98-107) Carbon Dioxide Level 26 mmol/L (20-31) Anion Gap 9 (5-15) Blood Urea Nitrogen 9 mg/dL (9-23) Creatinine 0.61 mg/dL (0.550-1.02) Glomerular Filtration Rate Calc 90 mL/min (>90) BUN/Creatinine Ratio 14.8 (10.0-20.0) Serum Glucose 96 mg/dL (74-106) Calcium Level 9.4 mg/dL (8.7-10.4) Magnesium Level 1.9 mg/dL (1.6-2.6) Total Bilirubin 0.5 mg/dL (0.2-1.0) Aspartate Amino Transferase (AST) 20 U/L (13-40) Alanine Aminotransferase (ALT) 12 U/L (7-40) Alkaline Phosphatase 77 U/L (46-116) Total Protein 7.5 g/dL (5.7-8.2) Albumin 4.0 g/dL (3.2-4.8) Test 01/15/25 09:23 01/14/25 05:24 01/13/25 10:40 01/12/25 19:59 HIV (1&2) Antibody Deferred (Negative) Anisocytosis (manual) Slight Miscellaneous Referred Test (Refrg) Sent to [facility] Hepatitis B Surface Antigen Negative (Negative) Hepatitis C Antibody Negative (Negative) Test 01/12/25 15:49 01/12/25 13:57 01/12/25 05:39 01/12/25 05:29 Haptoglobin 150 mg/dL (41-333) Anti-Nuclear Antibody Screen Positive (Negative) Hepatitis A IgM Antibody Negative Hepatitis B Core IgM Antibody Negative (Negative) Prothrombin Time 11.9 sec (9.3-11.8) Prothrombin Time INR 1.14 (0.9-1.15) Fibrinogen 276 mg/dL (177-375) Vitamin B12 Level 492 pg/mL (211-911) Folic Acid 15.92 ng/mL (>5.38) Cytomegalovirus IgG Antibody >10.00 U/mL (0.00-0.59) Cytomegalovirus IgM Antibody 49.4 AU/mL (0.0-29.9) Urine Color Light-yellow (Yellow) Urine Clarity Clear (Clear) Urine pH 6.0 (5.0-9.0) Urine Specific [place] 1.010 (1.001-1.035) Urine Protein Negative (Negative) Urine Ketones Negative (Negative) Urine Blood Trace /uL (Negative) Urine Nitrite Negative (Negative) Urine Bilirubin Negative (Negative) Urine Urobilinogen Normal mg/dL (Negative) Urine Leukocyte Esterase Negative /uL (Negative) Urine RBC 2 /hpf (0 - 4) Urine Microscopic WBC < 1 /HPF (0-5) Urine Squamous Epithelial Cells None seen /hpf (<5) Urine Bacteria None seen /hpf (None Seen) Urine Glucose Normal mg/dL (Normal) Eosinophils (%) (Auto) 0.1 % (0.0-7.0) Eosinophils # (Auto) 0 10 ^3/uL (0-0.8) Basophils # (Auto) 0 10 ^3/uL (0-0.2) Nucleated Red Blood Cells 0.0 % Reticulocyte Count (auto) 0.41 % (0.5-1.5) Lactate Dehydrogenase 196 U/L (120-246) Thyroid Stimulating Hormone (TSH) 0.69 uIU/mL (0.55-4.78) Other Laboratory Tests 01/19/25 13:09 01/17/25 08:25 Brief Hx & Hospital Course: 79 y/o female patient presents with c/o white sores to mouth. Patient states she was previously seen for same complaint and was prescribed Azithromycin. Patient is a smoker. While in the emergency department the patient was evaluated by the provider, As per provider: Labs, vital signs, and imagining monitored. Patient was admitted on January 11, 2025 for generalized weakness and malaise. Patient was complaining of throat pain. Patient had sores in her mouth and the back of her throat. I repeat, labs showed patient had pancytopenia. Sidebar consult with oncology was done. Patient was found to have a positive CMV. Unable to do CMV swab to detect viral load in hospital. Patients CMV IG and IM was positive. Most likely patient was immunocompromised due to thrombocytopenia related to methotrexate, and concurrent use of aspirin and Plavix. Patient was seen by cardiology, who did recommend to stop Plavix at discharge. Aspirin was initiated prior to discharge after patient's platelet count stabilized. Flow cytometry was pending. Patient has positive DAHLIA most likely related to rheumatoid arthritis. Patient was instructed to not take any methotrexate until she has follow up from a [facility] outpatient. Diagnosis for CLL was pending. Patient was unable to wait at the hospital to determine flow cytometry results. She will have close follow up with Doctor Chang's office and she'll continue aspirin 81mg daily. Plavix was discontinued. A repeat CBC to be ordered in one week. Patient will need follow up for flow cytometry to rule out CLL. There were no complaints or new complaints upon discharge, all questions and concerns were answered. Patient was advised to return to the ER or call 911 if any headaches, dizziness, shortness of breath, chest pain, bleeding, fevers, or worsening of medical condition. Patient/Family was counseled about treatment plan, medications, possible side effects, patientverbalized understanding. All questions were answered to the best of my ability. The patient symptoms improved and they are okay to be DC. Condition at Discharge: Stable Final Diagnosis/Problems List PANCYTOPENIA MOST LIKELY R/T METHOTREXATE, ASA, AND PLAVIX STOP PLAVIX OK TO RESTART ASA- WILL NEED CBC IN 1 WEEK Oral sores Thrombocytopenia Monitor, transfuse platelets Smoker Pharyngitis STOP METHOTREXATE UNTIL F/U WITH RHEUMATOLOGY WILL NEED CLOSE FOLLOW UP FOR FLOW CYTOMETRY RESULTS AND POSITIVE DAHLIA NEED TO R/O CLL Discharge Disposition: Home Discharge Instruct/Medications Diet: Cardiac 2g Na,low cholest Activity: No Restrictions, As Tolerated Follow Up/Referral: OUTPT ONCOLOGY DR CAIN CHANG 1 WEEK Discharge Statement: "Patient was advised to return to the ER or call 911 if any headaches, dizziness, shortness of breath, chest pain, abdominal pain, bleeding, fevers, or worsening of medical condition. Patient was counseled about treatment plan, medications, possible side effects, patientverbalized understanding. All questions were answered to the best of my ability. This discharge took greater then 30 minutes in planning, reviewing documentation, counseling the patient, and discussing with other team members." ASSESSMENT ASSESSMENT Assessment PANCYTOPENIA MOST LIKELY R/T METHOTREXATE, ASA, AND PLAVIX STOP PLAVIX OK TO RESTART ASA- WILL NEED CBC IN 1 WEEK STOP METHOTREXATE UNTIL F/U WITH RHEUMATOLOGY WILL NEED CLOSE FOLLOW UP FOR FLOW CYTOMETRY RESULTS AND POSITIVE DAHLIA NEED TO R/O CLL ALEX GROSSMAN NP Jan 20, 2025 09:01
[2025-01-20 10:40] VITALS: BP 109/57; PULSE 72; TEMP 36.8
[2025-01-20] MEDS ORDERED: LIDO2SOL18 PO (12:38)
== END 2025-01-20 12:27 | disposition home or self-care (01) | DRG 157 ==
LOC: ER 08:17 → OVERFLOW 10:32 → WEST WING 17:38
PROVIDERS: ADMIT Nurse Practitioner; ATTEND Nurse Practitioner
PROC: 30233R1 Transfusion of Nonautologous Platelets into Peripheral Vein, Percutaneous Approach (ICD-10-PCS; principal; 2025-01-11)
PROC: 05HA33Z Insertion of Infusion Device into Left Brachial Vein, Percutaneous Approach (ICD-10-PCS; 2025-01-11)
PROC: B54NZZA Ultrasonography of Left Upper Extremity Veins, Guidance (ICD-10-PCS; 2025-01-11)
PROC: 03PYX3Z Removal of Infusion Device from Upper Artery, External Approach (ICD-10-PCS; 2025-01-12)
PROC: 05H933Z Insertion of Infusion Device into Right Brachial Vein, Percutaneous Approach (ICD-10-PCS; 2025-01-12)
PROC: B54MZZA Ultrasonography of Right Upper Extremity Veins, Guidance (ICD-10-PCS; 2025-01-12)
DX: K12.39 Other oral mucositis (ulcerative) (principal); D61.811 Other drug-induced pancytopenia; D84.89 Other immunodeficiencies; Z71.6 Tobacco abuse counseling; J98.4 Other disorders of lung; M06.9 Rheumatoid arthritis, unspecified; J02.9 Acute pharyngitis, unspecified; E78.5 Hyperlipidemia, unspecified; M54.50 Low back pain, unspecified; G89.29 Other chronic pain; J43.9 Emphysema, unspecified; I25.10 Atherosclerotic heart disease of native coronary artery without angina pectoris; T45.1X5A Adverse effect of antineoplastic and immunosuppressive drugs, initial encounter; T45.525A Adverse effect of antithrombotic drugs, initial encounter; T39.015A Adverse effect of aspirin, initial encounter; F17.210 Nicotine dependence, cigarettes, uncomplicated; M54.9 Dorsalgia, unspecified; Z79.899 Other long term (current) drug therapy; Z79.02 Long term (current) use of antithrombotics/antiplatelets; Z79.891 Long term (current) use of opiate analgesic; Z79.1 Long term (current) use of non-steroidal anti-inflammatories (NSAID); Z95.5 Presence of coronary angioplasty implant and graft; Y92.89 Other specified places as the place of occurrence of the external cause; Z87.19 Personal history of other diseases of the digestive system
CPT/HCPCS: 36415; 71045; 80048; 80053; 80074; 81001; 82607; 82746; 83010; 83615; 83735; 84443; 85007; 85025; 85027; 85045; 85384; 85610; 86038; 86644; 86645; 86703; 86803; 86850; 86900; 86901; 87340; 87389; 93005; 93306; 99291; 99292; G0378; J1447; J2405; J3490

== ENCOUNTER 2025-03-02 14:30 | Inpatient (IN) | payer MEDICARE, MEDICAID ==
[~2025-03-02] VITALS: Ht 162.6 cm; Wt 55.2 kg
[~2025-03-02 14:30] MED LIST changes: +ATOR10TA52 PO; -AZIT-43 PO; +CHOL20007 PO; +FOLI-119 PO; +GABA-339 PO; +GABA800T97 PO; +HYDR-4798 PO; +LIDO2SOL18 PO; +METH2.5T PO; +METO25TA5 PO; +OXYB2.5T PO; +PANT40T PO
--- NOTE | 2025-03-02 14:47 | ED.PDOC ---
History of Present Illness HPI Comments 79-year-old female brought by paramedics from [facility] because she was found altered since last night 8:00 p.m.. Unknown how she was prior to being altered. She does have a history of hypertension coronary artery disease osteoarthritis. She is on oxygen with increased respiratory rate. She does have a DNR. Time Seen by MD: 14:38 Primary Care Provider: ZAYDA Monreal Notes: Nurses Notes, Medications, Allergies Allergies: Coded Allergies: NO KNOWN ALLERGIES (Unverified , 03/05/24) Home Meds Active Scripts Lidocaine Hcl (Lidocaine Viscous) 2 % Deborah, 10 ML PO Q6HR for 7 Days, #280 ML Prov:ALEX GROSSMAN CRUCIBLE FURNACE TENDER 01/20/25 Alum & Mag Hydrox-Simethicone (Magic Mouthwash) 80 Ml Ss, 80 ML MT TIDPRN PRN for 10 Days, #200 ML 0 Refills Prov:LB FONSECA CRUCIBLE FURNACE TENDER 01/07/25 Reported Medications Hydrocodone-Acetaminophen (Hydrocodone Bitartrate/AC 10-325 mg) 1 Tab Tab, 1 TAB PO [id number] for pain, TAB 01/12/25 Cholecalciferol (VITAMIN D3) 2,000 Unit Tab, 1 TAB PO DAILY, #30 TAB 5 Refills 01/12/25 Metoprolol Tartrate (Metoprolol Tartrate) 25 Mg Tab, 25 MG PO BID for 30 Days, MG 01/12/25 Gabapentin (Gabapentin) 800 Mg Tab, 800 MG PO TID, TAB 01/12/25 Folic Acid (Folic Acid) 1 Mg Tab, 1 MG PO DAILY for 30 Days, MG 25 Oxybutynin Chloride (Oxybutynin Chloride) 2.5 Mg Tab, 10 MG PO, TAB 25 Pantoprazole Sodium Sesquihydr (Pantoprazole Sodium) 40 Mg Tab, 40 MG PO, TAB 25 Atorvastatin Calcium (ATORVASTATIN CALCIUM) 10 Mg Tab, 1 TAB PO DAILY, #30 TAB 5 Refills 01/11/25 Methotrexate (Methotrexate) 2.5 Mg Tab, 2.5 MG PO, MG 25 Gabapentin (Gabapentin) 600 Mg Tab, 600 MG PO TID for 30 Days, MG 25 Information Source: Emergency Med Personnel Mode of Arrival: EMS Severity: Moderate Timing: Hours Duration: Since onset Past Medical History PAST MEDICAL HISTORY: VT 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: Denies all SOLDER CREAM MAKER Hx Family History Family History: Reviewed,noncontributory to illness, Unknown Social History Smoker: Cigarettes, Less Than 1 Pack/Day Alcohol: Denies ETOH Use Drugs: Denies Drug Use Lives In: Home Unable to Obtain due to: Altered Mental Status Physical Exam General Appearance: Severe Distress HEENT: Normal ENT Inspection, Pharynx Normal, TMs Normal Neck: Full Range of Motion, Non-Tender, Normal, Normal Inspection Respiratory: Accessory Muscle Use, Respiratory Distress Cardiovascular: Tachycardia Breast Exam: Deferred Gastrointestinal: No Organomegaly, Non Tender, No Pulsatile Mass, Normal Bowel Sounds, Soft Genitalia: Deferred Pelvic: Deferred Rectal: Deferred Extremities: No pedal edema Musculoskeletal : Apperance: Normal Neurologic: Disoriented Cerebellar Function: NOT DONE Reflexes: NOT DONE Skin: Normal Color Peripheral Pulses: 3+ Radial (R), 3+ Radial (L) Lymphatic: No Adenopathy Was a procedure done? Was a procedure done?: No Differential Dx Considerations may include: Sepsis X-Ray, Labs, Meds, VS Vital Signs Date Time Temp Pulse Resp B/P (MAP) Pulse Ox O2 Delivery O2 Flow Rate FiO2 03/02/25 16:00 144 03/02/25 15:49 Bi-Pap+ 60 60 03/02/25 14:39 132 Facial BiPAP Mask 60 03/02/25 14:35 98.3 146 35 160/84 (109) 98.3 03/02/25 14:33 133 03/02/25 14:30 99.0 130 34 139/90 (106) 94 99.0 Lab Test 03/02/25 15:16 03/02/25 14:38 Range/Units White Blood Count 31.1 *H 4.4-10.8 10^3/uL Red Blood Count 5.07 4.0-5.20 10^6/uL Hemoglobin 16.0 12.2-16.2 g/dL Hematocrit 50.3 H 36.0-46.0 % Mean Corpuscular Volume 99.1 80.0-100.0 fL Mean Corpuscular Hemoglobin 31.6 28.0-32.0 pg Mean Corpuscular Hemoglobin Concent 31.8 L 32.0-36.0 g/dL Red Cell Distribution Width 16.3 H 11.8-14.3 % Platelet Count 217 140-450 10^3/uL Mean Platelet Volume 8.2 6.9-10.8 fL Neutrophils (%) (Auto) 37.0-80.0 % Lymphocytes (%) (Auto) 10.0-50.0 % Monocytes (%) (Auto) 0.0-12.0 % Basophils (%) (Auto) 0.0-2.0 % Neutrophils # (Auto) 1.6-8.6 10 ^3/uL Lymphocytes # (Auto) 0.4-5.4 10 ^3/uL Monocytes # (Auto) 0-1.3 10 ^3/uL Differential Total Cells Counted 100.0 100 Neutrophils % (Manual) 74 37.0-80.0 Band Neutrophils % (Manual) 10 Lymphocytes % (Manual) 10 10.0-50.0 Monocytes % (Manual) 6 0-12 Eosinophils % (Manual) 0 0-7 Basophils % (Manual) 0 0.0-2.0 Metamyelocytes % (manual) 0 Myelocytes % (Manual) 0 Promyelocytes % (Manual) 0 Blast Cells % (Manual) 0 Reactive Lymphocytes 0 Platelet Estimate Adequate Anisocytosis (manual) Slight Prothrombin Time 12.7 H 9.3-11.8 sec Prothrombin Time INR 1.22 H 0.9-1.15 Activated Partial Thromboplast Time 29.1 24.5-34.5 SEC Sodium Level 138 136-145 mmol/L Potassium Level 3.4 L 3.5-5.1 mmol/L Chloride Level 101 98-107 mmol/L Carbon Dioxide Level 17 L 20-31 mmol/L Anion Gap 20 H 5-15 Blood Urea Nitrogen 11 9-23 mg/dL Creatinine 1.05 H 0.550-1.02 mg/dL Glomerular Filtration Rate Calc 53 >90 mL/min BUN/Creatinine Ratio 10.5 10.0-20.0 Serum Glucose 204 H 74-106 mg/dL Lactic Acid Level 9.8 *H 0.4-2.0 mmol/L Calcium Level 10.0 8.7-10.4 mg/dL Magnesium Level 2.1 1.6-2.6 mg/dL Total Bilirubin 0.8 0.2-1.0 mg/dL Aspartate Amino Transferase (AST) 92 H 13-40 U/L Alanine Aminotransferase (ALT) 16 7-40 U/L Alkaline Phosphatase 110 46-116 U/L B-Type Natriuretic Peptide Pending Total Protein 8.3 H 5.7-8.2 g/dL Albumin 4.1 3.2-4.8 g/dL Folic Acid Pending Plasma/Serum Blood Alcohol < 3.0 <10 mg/dL Blood Gas Specimen Type Arterial Blood Gas Sample Site Left brachial Blood Gas Patient Temperature 37.0 Arterial Blood Date Drawn [id number] Arterial Blood pH 7.430 7.350-7.450 Arterial Blood Partial Pressure CO2 22.3 L 32.0-45.0 mmHg Arterial Blood Partial Pressure O2 176.4 H 83.0-108.0 mmHg Arterial Blood HCO3 14.5 L 21.0-28.0 mmol/L Arterial Blood Oxygen Saturation 99.6 H 94.0-98.0 % Arterial Blood Base Excess -7.3 L -2.0-3.0 mmol/L Arterial Blood Oxyhemoglobin 97.8 94.0-98.0 % Arterial Blood Carboxyhemoglobin 1.2 0.5-1.5 % Arterial Blood Methemoglobin 0.6 0.0-1.5 % Conner Test N/a Blood Gas Total Hemoglobin 16.20 H 12.0-16.0 g/dL Blood Gas Set Respiration Rate 12.0 Blood Gas Modality Mask - bipap Blood Gas Spontaneous Rate 32 FiO2 % 60.0 Blood Gas EPAP 5 Blood Gas IPAP 12 Current Medications Medications (Trade) Dose Ordered Sig/Damian Route Start Time Stop Time Status Last Admin Vancomycin HCl 200 ml @ 200 mls/hr ONCE ONCE IV 03/02/25 14:45 03/02/25 15:44 DC 03/02/25 15:19 Sodium Chloride 1,000 ml @ 1,000 mls/hr Q1H ONCE IV 03/02/25 14:45 03/02/25 15:44 DC 03/02/25 15:17 Sodium Chloride 1,000 ml @ 150 mls/hr Q6H40M ONCE IV 03/02/25 14:45 03/02/25 21:24 03/02/25 16:25 [facility] [id number] [place] [id number] Ph: [phone] DIAGNOSTIC IMAGING Diagnostic Imaging Report : [id number] Signed PATIENT: STEVE SANTIAGO CACCT: [id number] UNIT: [id number] : 1945 LOC: ER ROOM / BED: / AGE / SEX: 79 / F ADM STATUS: REG ER SERVICE 41 ORDERING PHYSICIAN: NAUN ZAPATA MD PROCEDURE(s): CXRP - CHEST PORTABLE REASON: sob ORDER NUMBER(s): [id number], ACCESSION NUMBER(s): [id number] CHEST RADIOGRAPH Indication: sob Technique: Single frontal view of the chest was obtained COMPARISON: XY CHEST PORTABLE on DOS: 01/11/25 FINDINGS: Lines and Tubes: None Lungs: Multifocal right lung airspace disease Pleura: No effusion. No pneumothorax. Cardiomediastinal contours: Vascular calcifications of the aorta. Bones: Unremarkable IMPRESSION: Multifocal right lung airspace disease ATED BY: HUNG PAYNE MD DICTATED DATE/TIME: 03/02/251514 SIGNED BY: HUNG PAYNE MD SIGNED DATE/TIME: 03/02/251514 CC: Time of 1ST Reevaluation: 14:47 Reevaluation 1ST: Unchanged Patient Education/Counseling: Pt Unresponsive Family Education/Counseling: No Family Present SEPSIS Sepsis Screen Physician Orders BIPAP (03/02/25 14:30) Abg W/ Co-Ox (03/02/25 14:30) Electrocardigram (03/02/25 14:39) Urinalysis (03/02/25 14:42) Chest Portable (03/02/25 14:42) Accucheck (03/02/25 14:42) Blood Culture (03/02/25 14:42) Cefepime 1gm/ 50ml (Maxipime 1gm/50ml) (03/02/25 22:00) Notify Md If Map <65 Or Bp<90 (03/02/25 14:42) If Map<65 Start Vasopressor (03/02/25 14:42) Sepsis Reassesment After Fluid (03/02/25 15:42) Sodium Chloride 0.9% (03/02/25 14:45) Herb Digger (03/02/25 15:23) Abg W/ Co-Ox (03/02/25 18:00) Vital Signs Date Time Temp Pulse Resp B/P (MAP) Pulse Ox O2 Delivery O2 Flow Rate FiO2 03/02/25 16:00 144 03/02/25 15:49 Bi-Pap+ 60 60 03/02/25 14:39 132 Facial BiPAP Mask 60 03/02/25 14:35 98.3 146 35 160/84 (109) 98.3 03/02/25 14:33 133 03/02/25 14:30 99.0 130 34 139/90 (106) 94 99.0 Laboratory Tests Test 03/02/25 15:16 Lactic Acid Level 9.8 mmol/L (0.4-2.0) *H White Blood Count 31.1 10^3/uL (4.4-10.8) *H Medications Medications Dose Ordered Sig/Damian Route Start Time Stop Time Status Last Admin Dose Admin Sodium Chloride 1,000 ml @ 150 mls/hr Q6H40M ONCE IV 03/02/25 14:45 03/02/25 21:24 03/02/25 16:25 Sodium Chloride 1,000 ml @ 1,000 mls/hr Q1H ONCE IV 03/02/25 14:45 03/02/25 15:44 DC 03/02/25 15:17 Vancomycin HCl 200 ml @ 200 mls/hr ONCE ONCE IV 03/02/25 14:45 03/02/25 15:44 DC 03/02/25 15:19 Departure 1 Departure Time of Disposition: 14:47 Impression: Primary Impression: Sepsis, unspecified organism Qualified Codes: A41.9 - Sepsis, unspecified organism Additional Impression: Pneumonitis Disposition: ADMITTED INPATIENT Admit to: Med Surg Condition: Guarded Critical Care Note Critical Care Time?: Yes (90 min-critical care time only) Critical care comment: On oxygen Stability Stability form required: No Heart Score Heart Score: Heart Score Response (Comments) Value History Slightly Suspicious 0 EKG Normal 0 Age >65 2 Risk Factors >3 or Hx ASHD 2 Troponin Normal limit 0 Total 4 I personally scribed for NAUN ZAPATA MD ([email or web address]) on 03/02/25 at 15:27. Electronically submitted by Debbie Lantigua ([email or web address]). NAUN ZAPATA MD Mar 02, 2025 14:47
[2025-03-02] MEDS: SODIUM CHLORIDE 0.9% 1,000 ML IV ONE ×3 (15:17→22:07)
--- NOTE | 2025-03-02 15:17 | DVH ---
CHEST RADIOGRAPH Indication: sob Technique: Single frontal view of the chest was obtained COMPARISON: XY CHEST PORTABLE on DOS: 01/11/25 FINDINGS: Lines and Tubes: None Lungs: Multifocal right lung airspace disease Pleura: No effusion. No pneumothorax. Cardiomediastinal contours: Vascular calcifications of the aorta. Bones: Unremarkable IMPRESSION: Multifocal right lung airspace disease
[2025-03-02] MEDS: VANCOMYCIN 1GM/200ML PM 200 ML IV ONE (15:19)
[2025-03-02 15:20] LABS: Base Excess -7.3 mmol/L (-2.0-3.0)
[2025-03-02 15:36] LABS: Mean Corpuscular Hemoglobin 31.6 pg (28.0-32.0)
[2025-03-02 15:38] LABS: Hematocrit 50.3 % (36.0-46.0); Hemoglobin 16.0 g/dL (12.2-16.2); Mean Corpuscular Volume 99.1 fL (80.0-100.0)
[2025-03-02 15:53] LABS: Alanine Aminotransferase 16 U/L (7-40); Albumin 4.1 g/dL (3.2-4.8); Alkaline Phosphatase 110 U/L (46-116); Anion Gap 20 (5-15); BUN/Creatinine Ratio 10.5 (10.0-20.0); Bilirubin, Total 0.8 mg/dL (0.2-1.0); Blood Urea Nitrogen 11 mg/dL (9-23); Calcium 10.0 mg/dL (8.7-10.4); Carbon Dioxide 17 mmol/L (20-31); Chloride 101 mmol/L (98-107); Glucose 204 mg/dL (74-106); Potassium 3.4 mmol/L (3.5-5.1); Sodium 138 mmol/L (136-145); Total Protein 8.3 g/dL (5.7-8.2)
[2025-03-02 15:55] LABS: Lactic Acid w/Reflex 9.8 mmol/L (0.4-2.0)
[2025-03-02 16:08] LABS: INR 1.22 (0.9-1.15); Partial Thromboplastin Time 29.1 SEC (24.5-34.5); Prothrombin Time 12.7 sec (9.3-11.8)
[2025-03-02] MEDS ORDERED: MORPHINE SULFATE INJ 2 MG/ml SYRG IV PRN (16:15)
[2025-03-02] MEDS ORDERED: ACETAMINOPHEN 325 MG TAB PO PRN (16:15)
[2025-03-02] MEDS ORDERED: ONDANSETRON HCL 4 MG/2 ML VIAL IV PRN (16:15)
[2025-03-02] MEDS ORDERED: NITROGLYCERIN 0.4 MG SL TAB SL PRN (16:15)
[2025-03-02 16:40] LABS: Anisocytosis Slight; Total Cells Counted 100.0 (100)
[2025-03-02] MEDS ORDERED: VANCOMYCIN PER PHARMACY 0 MG IV SCH (16:45)
[2025-03-02 16:46] VITALS: PULSE 138; RESP 32; O2SAT 95
--- NOTE | 2025-03-02 16:58 | DVHHPRES ---
History of Present Illness Resident Creating Document: MADELEINE ESCOBAR RESIDENT History of Present Illness STEVE SANTIAGO is a 79 years old female with PMH of HTN, CAD, Crohn's disease, osteoarthritis and osteoporosis presented to the ED with the complaints of ALOC. Patient is poor historian because she is on BiPAP and in severe respiratory distress at the time of history taking so history obtained from EMR and ED reports which says she was brought by paramedics from [facility] because she was found altered since last night 8:00 p.m.. Unknown how she was prior to being altered. She does have a history of hypertension coronary artery disease osteoarthritis. She is on BiPAP. She does have a DNR. PMH: HTN, CAD, Crohn's disease, osteoarthritis and osteoporosis PSH: Unable to obtain Family history: Unable to obtain Social history: Lives at still drinks but rest of the history unable to obtain due to patient's status Allergies: Unable to obtain Home medications: Unable to obtain Patient seen and examined at the bedside unable to obtain complete ROS as patient is in severe respiratory distress and does on BiPAP. Review of Systems Allergies: Coded Allergies: Morphine (Unverified Allergy, Unknown, 03/02/25) Uncoded Allergies: adhesive tape (Allergy, Unknown, 03/02/25) Medications Current Medications Medications Dose Ordered Sig/Damian Route Start Time Stop Time Status Last Admin Dose Admin Cefepime HCl 50 ml @ 12.5 mls/hr Q12HR IV 03/02/25 22:00 Ondansetron HCl 4 mg Q4HP PRN IV 03/02/25 16:15 Acetaminophen 650 mg Q6HP PRN PO 03/02/25 16:15 Morphine Sulfate 2 mg Q4HPRN PRN IV 03/02/25 16:15 Nitroglycerin 0.4 mg Q5MINP PRN SL 03/02/25 16:15 Morphine Sulfate 2 mg Q30M PRN IV 03/02/25 16:15 Albuterol 2.5 mg Q4HWA NEB 03/02/25 18:00 UNV Ipratropium [place] 0.5 mg Q4HWA NEB 03/02/25 18:00 UNV Hydrocortisone Sodium Succinate 100 mg Q12HR IV 03/02/25 22:00 UNV Vancomycin HCl 0 ml @ 0 mls/hr UD IV 03/02/25 16:45 UNV Exam Vital Signs Vital Signs Date Time Temp Pulse Resp B/P (MAP) Pulse Ox O2 Delivery O2 Flow Rate FiO2 03/02/25 16:17 138 172/91 Facial BiPAP Mask 40 03/02/25 14:35 98.3 35 98.3 03/02/25 14:30 94 Exam Pt is lying on bed General Appearance: Severe respiratory distress and on BiPAP HEENT: Atraumatic, Mucous membranes moist/pink Respiratory: decreased breath sounds on bilaterally and crackles all over the lungs more on right Cardiovascular: Regular rate, Normal S1, Normal S2, No murmurs Abdominal: Active bowel sounds, Soft, no distention Extremities: right lower extremity injury Skin: As above Neuro: unable to finish due to patient status Nurse was there as proj engineer during examination Labs/Xrays Labs Test 03/02/25 15:16 03/02/25 14:38 Range/Units White Blood Count 31.1 *H 4.4-10.8 10^3/uL Red Blood Count 5.07 4.0-5.20 10^6/uL Hemoglobin 16.0 12.2-16.2 g/dL Hematocrit 50.3 H 36.0-46.0 % Mean Corpuscular Volume 99.1 80.0-100.0 fL Mean Corpuscular Hemoglobin 31.6 28.0-32.0 pg Mean Corpuscular Hemoglobin Concent 31.8 L 32.0-36.0 g/dL Red Cell Distribution Width 16.3 H 11.8-14.3 % Platelet Count 217 140-450 10^3/uL Mean Platelet Volume 8.2 6.9-10.8 fL Neutrophils (%) (Auto) 37.0-80.0 % Lymphocytes (%) (Auto) 10.0-50.0 % Monocytes (%) (Auto) 0.0-12.0 % Basophils (%) (Auto) 0.0-2.0 % Neutrophils # (Auto) 1.6-8.6 10 ^3/uL Lymphocytes # (Auto) 0.4-5.4 10 ^3/uL Monocytes # (Auto) 0-1.3 10 ^3/uL Differential Total Cells Counted 100.0 100 Neutrophils % (Manual) 74 37.0-80.0 Band Neutrophils % (Manual) 10 Lymphocytes % (Manual) 10 10.0-50.0 Monocytes % (Manual) 6 0-12 Eosinophils % (Manual) 0 0-7 Basophils % (Manual) 0 0.0-2.0 Metamyelocytes % (manual) 0 Myelocytes % (Manual) 0 Promyelocytes % (Manual) 0 Blast Cells % (Manual) 0 Reactive Lymphocytes 0 Platelet Estimate Adequate Anisocytosis (manual) Slight Prothrombin Time 12.7 H 9.3-11.8 sec Prothrombin Time INR 1.22 H 0.9-1.15 Activated Partial Thromboplast Time 29.1 24.5-34.5 SEC Sodium Level 138 136-145 mmol/L Potassium Level 3.4 L 3.5-5.1 mmol/L Chloride Level 101 98-107 mmol/L Carbon Dioxide Level 17 L 20-31 mmol/L Anion Gap 20 H 5-15 Blood Urea Nitrogen 11 9-23 mg/dL Creatinine 1.05 H 0.550-1.02 mg/dL Glomerular Filtration Rate Calc 53 >90 mL/min BUN/Creatinine Ratio 10.5 10.0-20.0 Serum Glucose 204 H 74-106 mg/dL Lactic Acid Level 9.8 *H 0.4-2.0 mmol/L Calcium Level 10.0 8.7-10.4 mg/dL Total Bilirubin 0.8 0.2-1.0 mg/dL Aspartate Amino Transferase (AST) 92 H 13-40 U/L Alanine Aminotransferase (ALT) 16 7-40 U/L Alkaline Phosphatase 110 46-116 U/L Total Protein 8.3 H 5.7-8.2 g/dL Albumin 4.1 3.2-4.8 g/dL Plasma/Serum Blood Alcohol < 3.0 <10 mg/dL Blood Gas Specimen Type Arterial Blood Gas Sample Site Left brachial Blood Gas Patient Temperature 37.0 Arterial Blood Date Drawn [id number] Arterial Blood pH 7.430 7.350-7.450 Arterial Blood Partial Pressure CO2 22.3 L 32.0-45.0 mmHg Arterial Blood Partial Pressure O2 176.4 H 83.0-108.0 mmHg Arterial Blood HCO3 14.5 L 21.0-28.0 mmol/L Arterial Blood Oxygen Saturation 99.6 H 94.0-98.0 % Arterial Blood Base Excess -7.3 L -2.0-3.0 mmol/L Arterial Blood Oxyhemoglobin 97.8 94.0-98.0 % Arterial Blood Carboxyhemoglobin 1.2 0.5-1.5 % Arterial Blood Methemoglobin 0.6 0.0-1.5 % Conner Test N/a Blood Gas Total Hemoglobin 16.20 H 12.0-16.0 g/dL Blood Gas Set Respiration Rate 12.0 Blood Gas Modality Mask - bipap Blood Gas Spontaneous Rate 32 FiO2 % 60.0 Blood Gas EPAP 5 Blood Gas IPAP 12 SEPSIS Sepsis Screen Date sepsis recognized/suspect: Mar 02, 2025 Time Sepsis recognized/suspect: 1434 Recent Procedure: No On Antibiotic Therapy: Yes Respiratory Rate >20: Yes Heart Rate >90: Yes Temp<36 C (96.8 F) or >38.3 C: No SBP <90 or MAP <65 mmHG: No New Acute Mental Status Change: Yes Is the patient on CPAP, BIPAP,: Yes Physician Orders BIPAP (03/02/25 14:30) Abg W/ Co-Ox (03/02/25 14:30) Electrocardigram (03/02/25 14:39) Urinalysis (03/02/25 14:42) Chest Portable (03/02/25 14:42) Accucheck (03/02/25 14:42) Blood Culture (03/02/25 14:42) Cefepime 1gm/ 50ml (Maxipime 1gm/50ml) (03/02/25 22:00) Notify Md If Map <65 Or Bp<90 (03/02/25 14:42) If Map<65 Start Vasopressor (03/02/25 14:42) Sepsis Reassesment After Fluid (03/02/25 15:42) Sodium Chloride 0.9% (03/02/25 14:45) Conference Planning Manager (03/02/25 15:23) Abg W/ Co-Ox (03/02/25 18:00) Admit (03/02/25 16:09) Allergies (03/02/25 16:09) Ondansetron Hcl (Zofran) (03/02/25 16:15) Complete Blood Count (03/03/25 04:00) Comprehensive Metabolic Panel (03/03/25 04:00) Npo (Nothing By Mouth) Diet (03/02/25 Dinner) Condition: Fair (03/02/25 16:09) Acetaminophen Tablet (Tylenol Tablet) (03/02/25 16:15) Morphine Sulfate Injection (03/02/25 16:15) Nitroglycerin Sublingual (Ntrostat Subli (03/02/25 16:15) Morphine Sulfate Injection (03/02/25 16:15) Oxygen By Nasal Cannula (03/02/25 16:09) Stat Ekg For Chest Pain (03/02/25 16:09) Notify Md Of Changes From Base (03/02/25 16:09) Corrections Nurse For 24 Hours (03/02/25 16:09) Emergency Dysrhythmia Protocol (03/02/25 16:09) Rhythm Strips Once Every Shift (03/02/25 16:09) Code Status (03/02/25 16:35) Albuterol Medneb (Ventolin Medneb) (03/02/25 18:00) Ipratropium Medneb (Atrovent Medneb) (03/02/25 18:00) Hydrocortisone Succinate Inj (Solu-Km (03/02/25 22:00) Vancomycin Per Pharmacy (03/02/25 16:45) Respiratory Culture W/ Gs (03/02/25 16:36) Urine Bacterial Culture (03/02/25 16:36) Folate (Folic Acid) (03/02/25 16:36) Rapid Influenza A&B (03/02/25 16:36) Covid19 Antigen Adilia (03/02/25 ) Magnesium (03/02/25 16:36) B-Type Natriuretic Peptide (03/02/25 16:36) Ammonia (03/02/25 16:36) Head Without Contrast (03/02/25 16:36) * Wound Consult (03/02/25 ) Hydralazine Injection (Apresoline Inject (03/02/25 17:00) Pantoprazole (Protonix) (03/03/25 10:00) Glucose Blood (Accu-Chek Comfort Curve T (03/02/25 17:00) Insulin R (Human) (Insulin R) (03/02/25 17:00) Dextrose 50% Syringe (03/02/25 17:00) Potassium Chl 20meq/100ml (03/02/25 17:00) Vital Signs Date Time Temp Pulse Resp B/P (MAP) Pulse Ox O2 Delivery O2 Flow Rate FiO2 03/02/25 16:17 138 172/91 Facial BiPAP Mask 40 03/02/25 16:00 144 03/02/25 15:49 Bi-Pap+ 60 60 03/02/25 14:39 132 Facial BiPAP Mask 60 03/02/25 14:35 98.3 146 35 160/84 (109) 98.3 03/02/25 14:33 133 03/02/25 14:30 99.0 130 34 139/90 (106) 94 99.0 Laboratory Tests Test 03/02/25 15:16 Lactic Acid Level 9.8 mmol/L (0.4-2.0) *H White Blood Count 31.1 10^3/uL (4.4-10.8) *H Medications Medications Dose Ordered Sig/Damian Route Start Time Stop Time Status Last Admin Dose Admin Sodium Chloride 1,000 ml @ 150 mls/hr Q6H40M ONCE IV 03/02/25 14:45 03/02/25 21:24 03/02/25 16:25 150 MLS/HR Sodium Chloride 1,000 ml @ 1,000 mls/hr Q1H ONCE IV 03/02/25 14:45 03/02/25 15:44 DC 03/02/25 15:17 1,000 MLS/HR Vancomycin HCl 200 ml @ 200 mls/hr ONCE ONCE IV 03/02/25 14:45 03/02/25 15:44 DC 03/02/25 15:19 200 MLS/HR Assessment/Plan Assessment/Plan # ? mechanical fall # Severe sepsis likely due to PNA # Acute toxic/metabolic encephalopathy likely due to sepsis # Acute hypoxic respiratory failure likely from PNA # Acute Gram-positive /negative bacterial PNA vs Aspiration pneumonia - CHELE ICU status - patient is currently on BiPAP( no intubation because patient is DNR/DNI) - CXR showed Multifocal right lung airspace disease - ordered pancultures - elevated lactic acid, repeat - continuously monitor lab - currently on cefepime and vancomycin - sepsis protocol - hydrocortisone 200 mg b.i.d. - pending HeadCT(patient is very unstable for further imaging right now) - ordered urinalysis, pending - IVF # hypertensive urgency - continuously monitor blood pressure - currently on hydralazine p.r.n. # Hypokalemia - Repleting - Monitor lab # Rt leg injury POA likely from fall -wound consult - Imaging needed Protonix No VTE PPX since patient is bleeding from injury NPO for now Patient brought in with the code status of DNR/ DNI case discussed with Dr. Thomas, and nurse Patient condition updated to his friend from the contact list of annita's paperwork Critical care time spent excluding procedures 119 minutes Plan discussed with: Other (Friend and nurse) My Orders Orders - MADELEINE ESCOBAR RESIDENT Procedure Category Date Status Time Code Status CODE 03/02/25 Transmitted 16:35 Albuterol Medneb PHA 03/02/25 In Process (Ventolin Medneb) 18:00 Ipratropium Medneb PHA 03/02/25 In Process (Atrovent Medneb) 18:00 Hydrocortisone PHA 03/02/25 In Process Succinate Inj 22:00 Vancomycin Per PHA 03/02/25 Logged Pharmacy 16:45 Respiratory Culture MARCIAL 03/02/25 Logged W/ Gs 16:36 Urine Bacterial MARCIAL 03/02/25 Logged Culture 16:36 Folate (Folic Acid) LAB 03/02/25 In Process 16:36 Rapid Influenza A&B LAB 03/02/25 Logged 16:36 Covid19 Antigen Adilia LAB 03/02/25 Logged Magnesium LAB 03/02/25 In Process 16:36 B-Type Natriuretic LAB 03/02/25 In Process Peptide 16:36 Ammonia LAB 03/02/25 Logged 16:[address] 03/02/25 Logged 16:36 * Wound Consult CONS 03/02/25 Transmitted Hydralazine Injection PHA 03/02/25 In Process (Apresoline Inject 17:00 Pantoprazole PHA 03/03/25 In Process (Protonix) 10:00 Glucose Blood PHA 03/02/25 In Process (Accu-Chek Comfort 17:00 Insulin R (Human) PHA 03/02/25 In Process (Insulin R) 17:00 Dextrose 50% Syringe PHA 03/02/25 In Process 17:00 Potassium Chl PHA 03/02/25 In Process 20meq/100ml 17:00 Date of Service: Mar 02, 2025 Billing Provider: GREG THOMAS MD Common Visit Codes: 16602-[id number] CARE 30-74 MIN, 62533-YUTZGICT CARE-EACH +30MIN SHAWN,KHAJA RESIDENT Mar 02, 2025 16:58 GREG THOMAS MD Mar 03, 2025 10:37
[2025-03-02] MEDS ORDERED: DEXTROSE (50%) 50ML SYRG IV PRN (17:00)
[2025-03-02] MEDS: InsuLIN REG 1unit/0.01ml Soln (100units/ml) SC SCH (17:07)
[2025-03-02] MEDS: ACCU-CHEK COMFORT CURVE STRIP VI SCH (17:07)
[2025-03-02] MEDS: HYDROCORTISONE SOD SUCC 100 MG/2ML INJ VIAL IV ONE (17:32)
[2025-03-02] MEDS: POTASSIUM CHL 20MEQ/100ML 100 ML IV ONE (17:33)
[2025-03-02 18:25] VITALS: BP 154/99; PULSE 128; O2SAT 95
[2025-03-02] MEDS: IPRATROPIUM BROM 0.5 MG/2.5ML INH SOL NEB SCH (18:25)
[2025-03-02] MEDS: ALBUTEROL SULF 2.5 MG/0.5ML(0.5%) NEB SOLN NEB SCH (18:25)
[2025-03-02 18:35] LABS: Urine Protein, UAD 3+ (Negative)
[2025-03-02 19:10] LABS: COVID19 ANTIGEN SOFIA FIA NEGATIVE (NEGATIVE)
[2025-03-02 19:30] VITALS: PULSE 131; RESP 34; O2SAT 92
[2025-03-02 19:50] VITALS: BP 154/89; PULSE 133; O2SAT 92
[2025-03-02] MEDS: MORPHINE SULFATE INJ 2 MG/ml SYRG IV PRN (20:23)
[2025-03-02] MEDS: HYDROmorphone HCL 2 MG/ML VL/or syr IV PRN (21:23)
[2025-03-02] MEDS: HYDROCORTISONE SOD SUCC 100 MG/2ML INJ VIAL IV SCH (21:35)
[2025-03-02] MEDS: CEFEPIME 1GM/ 50ML 50 ML IV SCH (21:38)
--- NOTE | 2025-03-02 22:18 | DVH ---
CHEST RADIOGRAPH Indication: VIEW PROGRESS FO LUNGS Technique: Single frontal view of the chest was obtained Comparison: XY CHEST PORTABLE on DOS: 03/02/25, XY CHEST PORTABLE on DOS: 01/11/25 FINDINGS: Lines and Tubes: None Lungs: No focal consolidation. Pleura: No effusion. No pneumothorax. Cardiomediastinal contours: Unremarkable Bones: No acute osseous abnormality. IMPRESSION: 1. No significant change from earlier study 03/02/2025 at 3:06 p.m.
[2025-03-02 22:19] VITALS: BP 104/68; PULSE 149; RESP 38; O2SAT 92
[2025-03-02 22:30] LABS: Lactic Acid w/Reflex 4.0 mmol/L (0.4-2.0)
--- NOTE | 2025-03-02 22:50 | ECG ---
[facility] Test Date: 2025-03-02 Test Time: 20:57:21 Pat Name: STEVE SANTIAGO Department: ED Room: [address] [place] [address] Gender: F Screedman/Laborer: ARACELIS : 1945 Requested By: NAUN ZAPATA Order Number: [id number] Reading MD: Kavon Lucas Measurements Intervals [place] Rate: 157 P: 84 MD: 110 QRS: -57 QRSD: 106 T: 73 QT: 346 QTc: 560 Interpretive Statements Supraventricular tachycardia Left anterior fascicular block Anterior infarct, old Electronically Signed On 03-03-2025 17:02:36 PDT by Kavon Lucas Please click the below link to view image of tracing.
[2025-03-03] VITALS (33 sets, daily range): BP systolic 68–131; BP diastolic 42–78; PULSE 110–187; RESP 18–28; TEMP 97.9–98.4; O2SAT 93–100
[2025-03-03] MEDS: ACETAMINOPHEN 650 MG RECT SUPP PR ONE (00:38)
[2025-03-03 03:58] LABS: Hemoglobin 14.0 g/dL (12.2-16.2)
[2025-03-03 04:01] LABS: Hematocrit 43.0 % (36.0-46.0); Mean Corpuscular Hemoglobin 31.8 pg (28.0-32.0); Mean Corpuscular Volume 97.4 fL (80.0-100.0)
[2025-03-03 04:14] LABS: Alanine Aminotransferase 28 U/L (7-40); Albumin 3.3 g/dL (3.2-4.8); Alkaline Phosphatase 67 U/L (46-116); Anion Gap 14 (5-15); BUN/Creatinine Ratio 15.9 (10.0-20.0); Blood Urea Nitrogen 23 mg/dL (9-23); Sodium 145 mmol/L (136-145); Total Protein 6.2 g/dL (5.7-8.2)
[2025-03-03 04:15] LABS: Bilirubin, Total 0.5 mg/dL (0.2-1.0)
[2025-03-03 04:19] LABS: Calcium 7.7 mg/dL (8.7-10.4); Carbon Dioxide 19 mmol/L (20-31); Chloride 112 mmol/L (98-107); Glucose 113 mg/dL (74-106); Potassium 3.3 mmol/L (3.5-5.1)
[2025-03-03 04:31] LABS: Total Cells Counted 100.0 (100)
[2025-03-03] MEDS: LEVALBUTEROL HCL 1.25 MG/3 ML NEB NEB SCH (06:08)
--- NOTE | 2025-03-03 07:05 | DVH ---
EXAM: CT HEAD WITHOUT CONTRAST HISTORY: aloc COMPARISON: None TECHNIQUE: Noncontrast axial CT images of the head were performed. Sagittal and coronal reformatted i mages were obtained. This CT exam was performed using 1 or more of the following dose reduction techn iques: Automated exposure control, adjustment of the mA and/or kv according to patient size, or the u se of iterative reconstruction techniques. Radiation Dose: CTDI volume is 53.84 mGy. Dose-length product is 1059.31 mGy*cm FINDINGS: There is acute hemorrhage in all 4 ventricles, likely ruptured into the ventricular system from the r ight basal ganglia or thalamus. There are fluid-fluid levels in the lateral ventricles. The lateral v entricles are dilated. The intra-axial acute hemorrhage in the right basal ganglia versus thalamus me asures 3.3 cm AP x 1.8 cm transverse (images 37-47, series 2). There is associated right to left subf alcine midline shift measuring 10 mm. There is extensive white matter edema and sulcal effacement in both cerebral hemispheres, greater on the right. There are Postoperative changes of Bilateral catarac t extraction surgery. There is fluid in the left mastoid air cells and middle ear. The right mastoi d air cells and middle ear are clear. The paranasal sinuses are clear. No cranial fracture or scalp edema. IMPRESSION: 1. Acute intracranial hemorrhage including intra-axial hemorrhage in the right basal ganglia and thal amus with rupture into the ventricular system, with associated hydrocephalus, right to left subfalcin e midline shift measuring 10 mm, extensive bilateral cerebral sulcal effacement and white matter vale a. 2. Fluid in the left mastoid air cells and middle ear suggestive of mastoiditis and otitis media. Critical findings Critical Result: Acute intracranial hemorrhage Findings discussed with Dr Iqbal at 03/03/2025 08:52 AM, and acknowledged receipt and understanding of the findings.
[2025-03-03] MEDS: POTASSIUM CHL 20MEQ/100ML 100 ML IV ONE (08:04)
[2025-03-03] MEDS: FUROSEMIDE 40 MG/4 ML VIAL IV ONE (08:53)
[2025-03-03] MEDS: MAGNESIUM SULFATE 1GM/100ML 100 ML IV SCH (09:00)
--- NOTE | 2025-03-03 09:01 | DVH ---
INDICATION: SOB TECHNIQUE: Frontal view of the chest. COMPARISON: XY CHEST XRAY 1 VIEW on DOS: 03/02/25, XY CHEST PORTABLE on DOS: 03/02/25, XY CHEST PORTABL E on DOS: 01/11/25 FINDINGS: . The heart and mediastinal contours are grossly unremarkable. There is no evidence of pleural disea se. The lungs are clear. The bony structures of the chest are intact without fracture. IMPRESSION: 1. Cardiomegaly with mild CHF
--- NOTE | 2025-03-03 09:21 | DVHINCON2 ---
Date of service: Mar 03, [address] Aponte Reason for Consultation ? Hemorrhagic stroke History of Present Illness Mr. Mendoza is a 79 years old female with a history of dyslipidemia, rheumatoid arthritis, Crohn's disease, COPD, coronary artery disease, heart attack, she was brought to the hospital on 03/02/2025 because of altered mental status. 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 I have discussed with her son about her situation, and poor prognosis He also spiked temperature, her labs showed evidence of lactic acidosis, leukocytosis Hypotension noticed in the emergency room Raymond, , Candace: [phone] Urinalysis, 03/02/2025: WBC: 2, urine leukocyte esterase: Negative Plasma alcohol, 03/02/2025: <3 ABG, 03/02/2025: Compensated metabolic acidosis WBC/HB/PLT/MCV, 03/02/2025: 31.1/16/217/99.1 PT/INR/PTT, 03/02/2025: 12.7/1.22/29.1 BUN/CR, 03/03/2025: 23/1.45 GFR, 02/28/2025: 36 Lactic acid, 03/02/2025: 9.8, 8.3, four Beta hydroxybutyric acid, 03/02/2025: 0.0158 Liver function tests, 02/28/2025: Unremarkable Ammonia, 03/02/2025: 27 Folic acid, 03/02/2025: 42.03 Chest x-ray, 03/02/2025: Multifocal right lung airspace disease Chest x-ray, 03/03/2025: Cardiomegaly with mild CHF CT head, 02/28/2025: 1. Acute intracranial hemorrhage including intra-axial hemorrhage in the right basal ganglia and thalamus with rupture into the ventricular system, with associated hydrocephalus, right to left subfalcine midline shift measuring 10 mm, extensive bilateral cerebral sulcal effacement and white matter edema. 2. Fluid in the left mastoid air cells and middle ear suggestive of mastoiditis and otitis media Past Medical History Hyperlipidemia, rheumatoid arthritis, Crohn's disease, COPD, coronary artery disease, heart attack Past Surgical History PTCA, spine procedure Family History Her son is not aware of major medical problems Social History She smokes, but has no history of drug or alcohol abuse Allergies: Coded Allergies: Morphine (Unverified Allergy, Unknown, 03/02/25) Uncoded Allergies: adhesive tape (Allergy, Unknown, 03/02/25) Home Meds Active Scripts Lidocaine Hcl (Lidocaine Viscous) 2 % Deborah, 10 ML PO Q6HR for 7 Days, #280 ML Prov:ALEX GROSSMAN ADMINISTRATIVE SERVICES MANAGER 01/20/25 Alum & Mag Hydrox-Simethicone (Magic Mouthwash) 80 Ml Ss, 80 ML MT TIDPRN PRN for 10 Days, #200 ML 0 Refills Prov:LB FONSECA ADMINISTRATIVE SERVICES MANAGER 01/07/25 Reported Medications Hydrocodone-Acetaminophen (Hydrocodone Bitartrate/AC 10-325 mg) 1 Tab Tab, 1 TAB PO [id number] for pain, TAB 01/12/25 Cholecalciferol (VITAMIN D3) 2,000 Unit Tab, 1 TAB PO DAILY, #30 TAB 5 Refills 01/12/25 Metoprolol Tartrate (Metoprolol Tartrate) 25 Mg Tab, 25 MG PO BID for 30 Days, MG 01/12/25 Gabapentin (Gabapentin) 800 Mg Tab, 800 MG PO TID, TAB 01/12/25 Folic Acid (Folic Acid) 1 Mg Tab, 1 MG PO DAILY for 30 Days, MG 01/12/25 Oxybutynin Chloride (Oxybutynin Chloride) 2.5 Mg Tab, 10 MG PO, TAB 01/11/25 Pantoprazole Sodium Sesquihydr (Pantoprazole Sodium) 40 Mg Tab, 40 MG PO, TAB 01/11/25 Atorvastatin Calcium (ATORVASTATIN CALCIUM) 10 Mg Tab, 1 TAB PO DAILY, #30 TAB 5 Refills 01/11/25 Methotrexate (Methotrexate) 2.5 Mg Tab, 2.5 MG PO, MG 01/11/25 Gabapentin (Gabapentin) 600 Mg Tab, 600 MG PO TID for 30 Days, MG 01/11/25 Current Medications Current Medications Medications (Trade) Dose Ordered Sig/Damian Route PRN Reason Start Time Stop Time Status Last Admin Cefepime HCl 50 ml @ 12.5 mls/hr Q12HR IV 03/02/25 22:00 03/02/25 21:38 Ondansetron HCl (Zofran) 4 mg Q4HP PRN IV NAUSEA / VOMITING 03/02/25 16:15 Acetaminophen (Tylenol Tablet) 650 mg Q6HP PRN PO PAIN SCALE 1-3 OR TEMP>100.4 03/02/25 16:15 Morphine Sulfate 2 mg Q4HPRN PRN IV SEVERE PAIN (7-10 PAIN SCALE) 03/02/25 16:15 03/02/25 21:03 DC Nitroglycerin (Ntrostat Sublingual) 0.4 mg Q5MINP PRN SL FOR CHEST PAIN 03/02/25 16:15 Morphine Sulfate 2 mg Q30M PRN IV FOR CHEST PAIN 03/02/25 16:15 Cancel Albuterol (Ventolin Medneb) 2.5 mg Q4HWA NEB 03/02/25 18:00 03/03/25 01:29 DC 03/02/25 20:45 Ipratropium [place] (Atrovent Medneb) 0.5 mg Q4HWA NEB 03/02/25 18:00 03/03/25 06:08 Hydrocortisone Sodium Succinate (Solu-CORTEF INJECTION) 100 mg Q12HR IV 03/02/25 22:00 03/02/25 21:35 Vancomycin HCl 0 ml @ 0 mls/hr UD IV 03/02/25 16:45 Hydralazine HCl (Apresoline Injection) 10 mg Q6HP PRN IV SBP>150 03/02/25 17:00 Pantoprazole Sodium (Protonix) 40 mg DAILY IV 03/03/25 10:00 Diagnostic Test (Pha) (Accu-Chek Comfort Curve T) 1 strip ACHS 03/02/25 17:00 03/03/25 07:05 Insulin Human Regular (InsuLIN R) ACHS SC 03/02/25 17:00 03/02/25 17:07 Dextrose 50 ml UD PRN IV Blood Sugar LESS THAN 60 03/02/25 17:00 Hydromorphone HCl (Dilaudid Injection) 0.5 mg Q4HPRN PRN IV PAIN SCALE 7 THRU 10 03/02/25 21:00 03/02/25 21:23 Levalbuterol HCl (Xopenex Medneb) 1.25 mg Q4HWA NEB 03/03/25 06:00 03/03/25 06:08 Magnesium Sulfate/ Dextrose 100 ml @ 100 mls/hr Q1HR IV 03/03/25 08:00 03/03/25 09:59 03/03/25 09:00 Review of Systems As above, the other systems are negative Vital Signs Vital Signs Date Time Temp Pulse Resp B/P (MAP) Pulse Ox O2 Delivery O2 Flow Rate FiO2 03/03/25 08:53 116/71 03/03/25 08:00 121 03/03/25 06:40 99.5 23 100 99.5 03/03/25 06:08 50.0 90 03/02/25 19:50 Facial BiPAP Mask Physical Exam GENERAL EXAM: General: the patient is well developed and nourished. No acute distress. HEENT: Normocephalic, neck is supple, no carotid bruits. No mass. RESPIRATORY: Normal respiratory effort with symmetrical lung expansion. Lungs clear to auscultation. CARDIOVASCULAR: Regular rate and rhythm with no murmurs. S1, S2. ABDOMEN: Soft, nontender, normal bowel sound Dried blood in the right foot NEUROLOGICAL: MENTAL STATUS: HPI SPEECH, LANGUAGE, HIGHER CORTICAL FUNCTION: She does not vocalize CRANIAL NERVES: #2: Deferred #3,4,6: Pupils are equally and reactive, eyes are in neutral position, there is doll's eye phenomena #5: Deferred #7: Facial muscles symmetrical and strength intact. #8: Deferred #9,10: Deferred #11: Deferred #12: Deferred SENSATION: Respond to light painful stimuli MOTOR: Normal tone in the upper and lower extremity. Normal muscle bulk. No fasciculations. No abnormal movements or posturing. No spontaneous extremity movement REFLEXES: Deep tendon reflexes are symmetrical. No pathological reflexes. CEREBELLAR/COORDINATION: Deferred GAIT/STATION: deferred. Labs/Diagnostic Data Labs Test 03/03/25 03:13 03/02/25 21:53 03/02/25 18:50 03/02/25 18:25 Range/Units White Blood Count 31.5 *H 4.4-10.8 10^3/uL Red Blood Count 4.41 4.0-5.20 10^6/uL Hemoglobin 14.0 12.2-16.2 g/dL Hematocrit 43.0 # 36.0-46.0 % Mean Corpuscular Volume 97.4 80.0-100.0 fL Mean Corpuscular Hemoglobin 31.8 28.0-32.0 pg Mean Corpuscular Hemoglobin Concent 32.6 32.0-36.0 g/dL Red Cell Distribution Width 15.9 H 11.8-14.3 % Platelet Count 154 140-450 10^3/uL Mean Platelet Volume 8.5 6.9-10.8 fL Neutrophils (%) (Auto) 37.0-80.0 % Lymphocytes (%) (Auto) 10.0-50.0 % Monocytes (%) (Auto) 0.0-12.0 % Basophils (%) (Auto) 0.0-2.0 % Neutrophils # (Auto) 1.6-8.6 10 ^3/uL Lymphocytes # (Auto) 0.4-5.4 10 ^3/uL Monocytes # (Auto) 0-1.3 10 ^3/uL Differential Total Cells Counted 100.0 100 Neutrophils % (Manual) 70 37.0-80.0 Band Neutrophils % (Manual) 15 Lymphocytes % (Manual) 9 L 10.0-50.0 Monocytes % (Manual) 6 0-12 Eosinophils % (Manual) 0 0-7 Basophils % (Manual) 0 0.0-2.0 Metamyelocytes % (manual) 0 Myelocytes % (Manual) 0 Promyelocytes % (Manual) 0 Blast Cells % (Manual) 0 Reactive Lymphocytes 0 Platelet Estimate Adequate Sodium Level 145 # 136-145 mmol/L Potassium Level 3.3 L 3.5-5.1 mmol/L Chloride Level 112 #H 98-107 mmol/L Carbon Dioxide Level 19 L 20-31 mmol/L Anion Gap 14 5-15 Blood Urea Nitrogen 23 # 9-23 mg/dL Creatinine 1.45 #H 0.550-1.02 mg/dL Glomerular Filtration Rate Calc 36 >90 mL/min BUN/Creatinine Ratio 15.9 10.0-20.0 Serum Glucose 113 H 74-106 mg/dL Calcium Level 7.7 L 8.7-10.4 mg/dL Magnesium Level 1.5 L 1.6-2.6 mg/dL Total Bilirubin 0.5 0.2-1.0 mg/dL Aspartate Amino Transferase (AST) 184 H 13-40 U/L Alanine Aminotransferase (ALT) 28 7-40 U/L Alkaline Phosphatase 67 46-116 U/L Total Protein 6.2 5.7-8.2 g/dL Albumin 3.3 3.2-4.8 g/dL Random Vancomycin Level 8.6 5-10 ug/mL Lactic Acid Level 4.0 *H 0.4-2.0 mmol/L Influenza Type A Antigen Negative Negative Influenza Type B Antigen Negative Negative SARS-CoV-2 Antigen (Rapid) Negative NEGATIVE Urine Color Yellow Yellow Urine Clarity Turbid H Clear Urine pH 6.5 5.0-9.0 Urine Specific [place] 1.022 1.001-1.035 Urine Protein 3+ H Negative Urine Ketones 1+ H Negative Urine Blood 2+ H Negative /uL Urine Nitrite Negative Negative Urine Bilirubin Negative Negative Urine Urobilinogen Normal Negative mg/dL Urine Leukocyte Esterase Negative Negative /uL Urine RBC 9 0 - 4 /hpf Urine Microscopic WBC 2 0-5 /HPF Urine Squamous Epithelial Cells Mod <5 /hpf Urine Bacteria None seen None Seen /hpf Urine Hyaline Casts Mod 0 - 2 /lpf Urine Mucus Few None Seen Urine Glucose 3+ H Normal mg/dL Test 03/02/25 17:26 03/02/25 17:06 03/02/25 15:16 03/02/25 14:38 Range/Units Ammonia 27 11-32 umol/L B-Type Natriuretic Peptide 2402.70 0-100 pg/mL Folic Acid 42.03 >5.38 ng/mL Beta-Hydroxybutyric Acid 0.158 < 0.4 mmol/L POC Glucose 162 H 70-106 mg/dl Anisocytosis (manual) Slight Prothrombin Time 12.7 H 9.3-11.8 sec Prothrombin Time INR 1.22 H 0.9-1.15 Activated Partial Thromboplast Time 29.1 24.5-34.5 SEC Plasma/Serum Blood Alcohol < 3.0 <10 mg/dL Blood Gas Specimen Type Arterial Blood Gas Sample Site Left brachial Blood Gas Patient Temperature 37.0 Arterial Blood Date Drawn [id number] Arterial Blood pH 7.430 7.350-7.450 Arterial Blood Partial Pressure CO2 22.3 L 32.0-45.0 mmHg Arterial Blood Partial Pressure O2 176.4 H 83.0-108.0 mmHg Arterial Blood HCO3 14.5 L 21.0-28.0 mmol/L Arterial Blood Oxygen Saturation 99.6 H 94.0-98.0 % Arterial Blood Base Excess -7.3 L -2.0-3.0 mmol/L Arterial Blood Oxyhemoglobin 97.8 94.0-98.0 % Arterial Blood Carboxyhemoglobin 1.2 0.5-1.5 % Arterial Blood Methemoglobin 0.6 0.0-1.5 % Conner Test N/a Blood Gas Total Hemoglobin 16.20 H 12.0-16.0 g/dL Blood Gas Set Respiration Rate 12.0 Blood Gas Modality Mask - bipap Blood Gas Spontaneous Rate 32 FiO2 % 60.0 Blood Gas EPAP 5 Blood Gas IPAP 12 Assessment Altered mental status secondary to intra cerebral hemorrhage, secondary ventricular hemorrhage, brain herniation, hydrocephalus Intra cerebral hemorrhage Secondary ventricular hemorrhage Acute hydrocephalus Brain edema Brain herniation Leukocytosis/fever/lactic acidosis/sepsis Septic shock Right foot injury Plan/Recommendation Monitoring Supportive treatment CHELE care Blood culture Follow-up blood tests EEG Foot/right leg x-rays reports pending Oxygen Avoid antiplatelet and anticoagulant agent Antibiotics IV fluids DVT prophylaxis/ICD GI prophylaxis/pantoprazole More recommendation per clinical course Prognosis: Guarded Critical care time spent is 50 minutes This medical document was created using an electronic medical record system with [employer] dictation system. Although this document has been carefully reviewed, there may still be some phonetic and typographical errors. These areas are purely typographical due to imperfections of the software programs, and do not reflect any compromise in the patient's medical care. Plan discussed with: Deborah Bowden DANUTA HARDIN MD Mar 03, 2025 09:20
[2025-03-03] MEDS: PANTOPRAZOLE 40 MG/10 ML VIAL INJ IV SCH (10:00)
--- NOTE | 2025-03-03 10:07 | DVH ---
EXAM: XY R FOOT 2 VIEW XRAY, XY R TIB FIB XRAY [facility]ICATION: [facility] TECHNIQUE: XY R FOOT 2 VIEW XRAY, XY R TIB FIB XRAY Comparison: None FINDINGS/IMPRESSION: Nondisplaced fracture involving the 3rd proximal phalanx.
--- NOTE | 2025-03-03 10:07 | DVH ---
EXAM: XY R FOOT 2 VIEW XRAY, XY R TIB FIB XRAY CLINICAL INDICATION: [facility] fall TECHNIQUE: XY R FOOT 2 VIEW XRAY, XY R TIB FIB XRAY Comparison: None FINDINGS/IMPRESSION: Nondisplaced fracture involving the 3rd proximal phalanx. No fracture involving the right tibia / fibula.
[2025-03-03] MEDS: hydrALAZINE HCL 20 MG/ML VL IV PRN (10:25)
[2025-03-03] MEDS: ACETAMINOPHEN IV 1000 MG/100ML (10MG/ML) IV ONE (10:36)
[2025-03-03] MEDS: VANCOMYCIN 500mg/100mL PREMIX or KIT IV ONE (14:37)
--- NOTE | 2025-03-03 14:58 | ECG ---
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
--- NOTE | 2025-03-03 16:41 | DVHPNRES ---
Progress Note Date Seen: Mar 03, 2025 Resident Creating Document: MADELEINE ESCOBAR RESIDENT Medical Necessity Reason Pt with a Central, PICC or Fol: Yes The following are medically ne: Orozco Catheter Subjective Review of Systems Patient seen and examined at the bedside. Unable to obtain ROS due to patient's clinical status. Patient is currently on high-flow nasal cannula. Objective vital signs Vital Sign Date Time Temp Pulse Resp B/P (MAP) Pulse Ox O2 Delivery O2 Flow Rate FiO2 03/03/25 15:52 114 22 110/56 03/03/25 15:30 98.4 97 98.4 03/03/25 13:40 40.0 40 03/03/25 07:30 Hi-Flow Heated NC+ Total Intake and Output 03/02/25 03/02/25 03/03/25 15:00 23:00 07:00 Intake Total 2112.5 ml 2187.5 ml Output Total 130 ml Balance 2112.5 ml 2057.5 ml medications Current Medications Medications Dose Ordered Sig/Damian Route Start Time Stop Time Status Last Admin Dose Admin Cefepime HCl 50 ml @ 12.5 mls/hr Q12HR IV 03/02/25 22:00 03/03/25 10:22 12.5 MLS/HR Ondansetron HCl 4 mg Q4HP PRN IV 03/02/25 16:15 Acetaminophen 650 mg Q6HP PRN PO 03/02/25 16:15 Nitroglycerin 0.4 mg Q5MINP PRN SL 03/02/25 16:15 Morphine Sulfate 2 mg Q30M PRN IV 03/02/25 16:15 Cancel Ipratropium [place] 0.5 mg Q4HWA NEB 03/02/25 18:00 03/03/25 13:40 0.5 MG Hydrocortisone Sodium Succinate 100 mg Q12HR IV 03/02/25 22:00 03/03/25 10:25 100 MG Vancomycin HCl 0 ml @ 0 mls/hr UD IV 03/02/25 16:45 Pantoprazole Sodium 40 mg DAILY IV 03/03/25 10:00 03/03/25 10:00 40 MG Diagnostic Test (Pha) 1 strip ACHS 03/02/25 17:00 03/03/25 12:30 1 STRIP Insulin Human Regular ACHS SC 03/02/25 17:00 03/03/25 12:30 2 UNITS Dextrose 50 ml UD PRN IV 03/02/25 17:00 Hydromorphone HCl 0.5 mg Q4HPRN PRN IV 03/02/25 21:00 03/03/25 15:22 0.5 MG Levalbuterol HCl 1.25 mg Q4HWA NEB 03/03/25 06:00 03/03/25 13:40 1.25 MG Hydralazine HCl 10 mg Q6HP PRN IV 03/03/25 15:45 Examination Pt is lying on bed General Appearance: Severe respiratory distress and on high-flow HEENT: Atraumatic, Mucous membranes moist/pink Respiratory: decreased breath sounds on bilaterally and crackles all over the lungs more on right Cardiovascular: Regular rate, Normal S1, Normal S2, No murmurs Abdominal: Active bowel sounds, Soft, no distention Extremities: right lower extremity injury Skin: As above Neuro: unable to finish due to patient status Nurse was there as carpenter supervisor wooden ship during examination laboratory and microbiology Laboratory Tests 03/03/25 03:13 Test 03/03/25 03:13 Range/Units Serum Glucose 113 H 74-106 mg/dL Microbiology Date/Time Source Procedure Growth Status 03/02/25 18:25 Voided Urine Urine Culture - Preliminary Resulted 03/02/25 15:16 Blood Blood Culture - Preliminary NO GROWTH AFTER 24 HOURS OF INCUBATION. 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 mechanical fall # Acute toxic/metabolic encephalopathy likely due to sepsis / Below # Intra cerebral hemorrhage # Secondary ventricular hemorrhage # Acute hydrocephalus # Brain edema # Brain herniation - CHELE ICU status - patient is currently on Hiflow NC ( no intubation because patient is DNR/DNI) - CT head without contrast showed Acute intracranial hemorrhage including intra- axial hemorrhage in the right basal ganglia and thalamus with rupture into the ventricular system, with associated hydrocephalus, right to left subfalcine midline shift measuring 10 mm, extensive bilateral cerebral sulcal effacement and white matter edema. - Neurology consult on board advised supportive treatment, avoid blood thinners/antiplatelets - Supportive care - goal to keep blood pressure below 140/90 CVS # Hx of CAD # hypertensive urgency # ? diastolic CHF exacerbation - elevated BNP - continuously monitor blood pressure - currently on hydralazine p.r.n. - no antiplatelet /blood thinners at this time - goal blood pressure is below 140/90 - Lasix 40 mg IV b.i.d. - echo from 01/13/2025 showed LVEF 71% RS # Severe sepsis likely due to PNA # Acute toxic/metabolic encephalopathy likely due to sepsis # Acute hypoxic respiratory failure likely from PNA # Acute Gram-positive /negative bacterial PNA vs Aspiration pneumonia - CHE[facility] ICU status - patient is currently on Hiflow NC ( no intubation because patient is DNR/DNI) - CXR showed Multifocal right lung airspace disease - ordered pancultures - elevated lactic acid, repeat trending down - continuously monitor lab - currently on cefepime and vancomycin - sepsis protocol - hydrocortisone 200 mg b.i.d. - ordered urinalysis, pending - IVF - repeat CXR and ABG GI/Liver # Hx of Crohns - monitor for now Renal/Metabolic/Endo # JAGDISH likely VMN # Hypokalemia # hypomagnesemia # elevated lactic acid likely from sepsis - IVF given initially and discontinued - Repleting - Monitor lab and replenish electrolytes as needed - Avoid nephrotoxic agents - strict I&Os MSK # ? [facility] fall # Rt leg injury POA likely from fall # Nondisplaced fracture involving the Rt 3rd proximal phalanx. -wound consult -Imaging showed nondisplaced fracture involving the Rt 3rd proximal phalanx. Heme-Onc - Monitor lab Drips- None Protonix No VTE PPX since patient is bleeding NPO for now Patient brought in with the code status of DNR/ DNI case discussed with Dr. Jo, and nurse Patient condition updated to his friend and daughter in law (bedside) Critical care time spent excluding procedures 59 minutes Plan discussed with: Other ([id number] and nurse) My Orders My Orders Orders - MADELEINE ESCOBAR RESIDENT Procedure Category Date Status Time Pantoprazole PHA 03/03/25 In Process (Protonix) 10:00 Glucose Blood PHA 03/02/25 In Process (Accu-Chek Comfort 17:00 Insulin R (Human) PHA 03/02/25 In Process (Insulin R) 17:00 Dextrose 50% Syringe PHA 03/02/25 In Process 17:00 * Neurology Consult CONS 03/03/25 Transmitted 06:49 Chest Portable XY 03/03/25 Resulted 07:59 R Tib Fib Xray XY 03/03/25 Resulted 08:45 R Foot 2 View Xray XY 03/03/25 Resulted 08:45 Creatinine LAB 03/04/25 Verified 04:00 Vancomycin,Random LAB 03/04/25 Verified 04:00 Hydralazine Injection PHA 03/03/25 In Process (Apresoline Inject 15:45 Mrsa Screen MARCIAL 03/03/25 Uncollected 15:45 Furosemide Injection PHA 03/03/25 In Process (Lasix Injection) 18:00 Complete Blood Count LAB 03/04/25 Verified 04:00 Comprehensive LAB 03/04/25 Verified Metabolic Panel 04:00 Magnesium LAB 03/04/25 Verified 04:00 Chest Xray 1 View XY 03/04/25 Verified 04:00 Abg W/ Co-Ox RT 03/04/25 Verified 04:00 Date of Service: Mar 03, 2025 Billing Provider: RUBEN JO MD Common Visit Codes: [id number] INP/OBS CARE(HIGH) MADELEINE ESCOBAR RESIDENT Mar 03, 2025 16:41 RUBEN JO MD Mar 03, 2025 23:28
[2025-03-03] MEDS: FUROSEMIDE 40 MG/4 ML VIAL IV SCH (18:00)
[2025-03-03] MEDS: AMIODARONE BOLUS KIT 100 ML IV ONE (20:00)
[2025-03-03] MEDS: AMIODARONE 360mg/200mL PREMIX 200 ML IV ONE (20:20)
[2025-03-04] VITALS (106 sets, daily range): BP systolic 81–147; BP diastolic 31–81; PULSE 71–179; RESP 11–47; TEMP 87.3–99.7; O2SAT 92–99
[2025-03-04] MEDS: AMIODARONE 360mg/200mL PREMIX 200 ML IV SCH (02:06)
[2025-03-04 05:35] LABS: Hematocrit 37.0 % (36.0-46.0); Hemoglobin 12.1 g/dL (12.2-16.2); Mean Corpuscular Hemoglobin 31.7 pg (28.0-32.0); Mean Corpuscular Volume 96.6 fL (80.0-100.0); Nucleated Red Blood Cells % 0.0 %
[2025-03-04 05:51] LABS: Alkaline Phosphatase 61 U/L (46-116); Anion Gap 14 (5-15); BUN/Creatinine Ratio 29.5 (10.0-20.0); Bilirubin, Total 0.4 mg/dL (0.2-1.0); Magnesium 1.9 mg/dL (1.6-2.6); Sodium 144 mmol/L (136-145); Total Protein 6.0 g/dL (5.7-8.2)
[2025-03-04 05:56] LABS: Alanine Aminotransferase 76 U/L (7-40); Albumin 3.1 g/dL (3.2-4.8); Blood Urea Nitrogen 36 mg/dL (9-23); Calcium 8.4 mg/dL (8.7-10.4); Carbon Dioxide 18 mmol/L (20-31); Chloride 112 mmol/L (98-107); Glucose 130 mg/dL (74-106); Potassium 3.1 mmol/L (3.5-5.1)
--- NOTE | 2025-03-04 06:24 | DVH ---
CHEST RADIOGRAPH Indication: sob f/u Technique: Single frontal view of the chest was obtained COMPARISON: XY CHEST PORTABLE on DOS: 03/03/25, XY CHEST XRAY 1 VIEW on DOS: 03/02/25, XY CHEST PORTABL E on DOS: 03/02/25, XY CHEST PORTABLE on DOS: 01/11/25 FINDINGS: Lines and Tubes: None Lungs: Grossly stable appearing multifocal pulmonary airspace disease predominantly throughout the ri ght lung. Pleura: No effusion. No pneumothorax. Cardiomediastinal contours: Unremarkable Bones: Unremarkable IMPRESSION: 1. Stable appearing right hemithoracic multifocal pulmonary airspace disease.
[2025-03-04] MEDS: POTASSIUM CHL 20MEQ/100ML 100 ML IV ONE (06:33)
--- NOTE | 2025-03-04 09:16 | DVHPN2 ---
Progress Note - Dictate Date Seen: Mar 04, 2025 Medical Necessity Reason Pt with a Central, PICC or Fol: Yes The following are medically ne: Orozco Catheter Subjective Mr. Mendoza is a 79 years old female with a history of dyslipidemia, rheumatoid arthritis, Crohn's disease, COPD, coronary artery disease, heart attack, she was brought to the hospital on 03/02/2025 because of altered mental status. I have seen and examined the patient, I have talked to her nurse, her [id number] is in the room with her. She is nonresponsive to verbal stimuli, but she move her arms and legs from times time, her pupils equal and reactive Urinalysis, 03/02/2025: WBC: 2, urine leukocyte esterase: Negative Plasma alcohol, 03/02/2025: <3 ABG, 03/02/2025: Compensated metabolic acidosis WBC/HB/PLT/MCV, 03/02/2025: 31.1/16/217/99.1, 03/04/2025: 22.5/12.1/110/96.6 PT/INR/PTT, 03/02/2025: 12.7/1.22/29.1 HCO3, 03/03/2025: 19, 03/04/2020 5:18 a.m. BUN/CR, 03/03/2025: 23/1.45 GFR, 02/28/2025: 36 Lactic acid, 03/02/2025: 9.8, 8.3, four Beta hydroxybutyric acid, 03/02/2025: 0.0158 Liver function tests, 02/28/2025: Unremarkable TBI/AST/ALT/AP, 03/04/2025: 0.4/340/76/61 Ammonia, 03/02/2025: 27 Folic acid, 03/02/2025: 42.03 Chest x-ray, 03/02/2025: Multifocal right lung airspace disease Chest x-ray, 03/03/2025: Cardiomegaly with mild CHF Chest x-ray, 03/04/2025: Stable appearing right hemithoracic multifocal pulmonary airspace disease. X-ray, right leg, foot, 03/03/2025: Nondisplaced fracture involving the 3rd proximal phalanx. No fracture involving the right tibia / fibula. CT head, 02/28/2025: 1. Acute intracranial hemorrhage including intra-axial hemorrhage in the right basal ganglia and thalamus with rupture into the ventricular system, with associated hydrocephalus, right to left subfalcine midline shift measuring 10 mm, extensive bilateral cerebral sulcal effacement and white matter edema. 2. Fluid in the left mastoid air cells and middle ear suggestive of mastoiditis and otitis media vital signs Vital Sign Date Time Temp Pulse Resp B/P (MAP) Pulse Ox O2 Delivery O2 Flow Rate FiO2 03/04/25 08:00 93 17 96 Hi-Flow Heated NC+ 40 30 30 03/04/25 08:00 97.5 110/53 (72) 207.5 Total Intake and Output 03/03/25 03/03/25 03/04/25 15:00 23:00 07:00 Intake Total 362.5 ml 705.16 ml 239.13 ml Output Total 925 ml 250 ml Balance 362.5 ml -219.84 ml -10.87 ml medications Current Medications Medications Dose Ordered Sig/Damian Route Start Time Stop Time Status Last Admin Dose Admin Cefepime HCl 50 ml @ 12.5 mls/hr Q12HR IV 03/02/25 22:00 03/03/25 21:37 12.5 MLS/HR Ondansetron HCl 4 mg Q4HP PRN IV 03/02/25 16:15 Acetaminophen 650 mg Q6HP PRN PO 03/02/25 16:15 Nitroglycerin 0.4 mg Q5MINP PRN SL 03/02/25 16:15 Morphine Sulfate 2 mg Q30M PRN IV 03/02/25 16:15 Cancel Ipratropium [place] 0.5 mg Q4HWA NEB 03/02/25 18:00 03/04/25 06:17 0.5 MG Hydrocortisone Sodium Succinate 100 mg Q12HR IV 03/02/25 22:00 03/03/25 21:37 100 MG Vancomycin HCl 0 ml @ 0 mls/hr UD IV 03/02/25 16:45 Pantoprazole Sodium 40 mg DAILY IV 03/03/25 10:00 03/03/25 10:00 40 MG Diagnostic Test (Pha) 1 strip ACHS 03/02/25 17:00 03/04/25 06:32 1 STRIP Insulin Human Regular ACHS SC 03/02/25 17:00 03/03/25 21:36 2 UNITS Dextrose 50 ml UD PRN IV 03/02/25 17:00 Hydromorphone HCl 0.5 mg Q4HPRN PRN IV 03/02/25 21:00 03/03/25 23:36 0.5 MG Levalbuterol HCl 1.25 mg Q4HWA NEB 03/03/25 06:00 03/04/25 06:17 1.25 MG Hydralazine HCl 10 mg Q6HP PRN IV 03/03/25 15:45 Furosemide 40 mg BIDD IV 03/03/25 18:00 03/04/25 05:42 40 MG objective General: the patient is well developed and nourished. No acute distress. Dried blood in the right foot MENTAL STATUS: Subjective SPEECH, LANGUAGE, HIGHER CORTICAL FUNCTION: She does not vocalize CRANIAL NERVES: Pupils are equally and reactive, eyes are in neutral position, there is doll's eye phenomena. She moves her jaw. Facial muscles symmetrical and strength intact. SENSATION: Respond to light painful stimuli MOTOR: Normal tone in the upper and lower extremity. Normal muscle bulk. No fasciculations. No abnormal movements or posturing. She moves the arms and legs from times time REFLEXES: Deep tendon reflexes are symmetrical. No pathological reflexes. CEREBELLAR/COORDINATION: Deferred GAIT/STATION: deferred laboratory and microbiology Laboratory Tests 03/04/25 05:00 Test 03/04/25 05:00 Range/Units Serum Glucose 130 H 74-106 mg/dL Problem List Altered mental status secondary to intra cerebral hemorrhage, secondary ventricular hemorrhage, brain herniation, hydrocephalus Intra cerebral hemorrhage Secondary ventricular hemorrhage Acute hydrocephalus Brain edema Brain herniation Leukocytosis/fever/lactic acidosis/sepsis Septic shock Right foot injury, fracture Assessment/Plan Monitoring Supportive treatment [facility] care Blood culture Follow-up blood tests EEG Oxygen Avoid antiplatelet and anticoagulant agent Antibiotics IV fluids DVT prophylaxis/ICD GI prophylaxis/pantoprazole More recommendation per clinical course This medical document was created using an electronic medical record system with [employer] dictation system. Although this document has been carefully reviewed, there may still be some phonetic and typographical errors. These areas are purely typographical due to imperfections of the software programs, and do not reflect any compromise in the patient's medical care. Prognosis guarded Dietary Evaluation Review Comments: 1) TPN if NPO >7 days 2) Advance diet as medically feasible 3) if feeding tube is placed, consider TF Jevity 1.2Cal @ 65ml/hr. Start @ 20ml/hr, increase 10ml/hr Q4H until goal is reached. Water flush 150ml Q6H if allowed, adjust PRN TF at goal volume provides 100% energy & protein needs - 1872 kcal, 87gm protein, 1259 ml free water 4) Chandler 1 pk daily 5) Monitor I/O, lab values, wt trend, skin trend Expected Outcomes/Goals: To meet >75% estimated needs Wound to improve Lab values to improve Fu 2-3 days Plan discussed with: Other Critical Care Time(min): 35 DANUTA HARDIN MD Mar 04, 2025 09:16
--- NOTE | 2025-03-04 12:55 | DVHPNRES ---
Progress Note Date Seen: Mar 04, 2025 Resident Creating Document: MADELEINE ESCOBAR RESIDENT Medical Necessity Reason Pt with a Central, PICC or Fol: Yes The following are medically ne: Orozco Catheter Subjective Review of Systems Patient seen and examined at the bedside. Unable to obtain ROS due to patient's clinical status. Patient is currently on high-flow nasal cannula. Changes from previous H/P or p: No Changes Objective vital signs Vital Sign Date Time Temp Pulse Resp B/P (MAP) Pulse Ox O2 Delivery O2 Flow Rate FiO2 03/04/25 12:30 98.1 101 21 105/49 (67) 93 208.6 03/04/25 12:00 Hi-Flow Heated NC+ 30 40 40 Total Intake and Output 03/03/25 03/03/25 03/04/25 15:00 23:00 07:00 Intake Total 362.5 ml 705.16 ml 239.13 ml Output Total 925 ml 250 ml Balance 362.5 ml -219.84 ml -10.87 ml medications Current Medications Medications Dose Ordered Sig/Damian Route Start Time Stop Time Status Last Admin Dose Admin Cefepime HCl 50 ml @ 12.5 mls/hr Q12HR IV 03/02/25 22:00 03/04/25 10:18 12.5 MLS/HR Ondansetron HCl 4 mg Q4HP PRN IV 03/02/25 16:15 Acetaminophen 650 mg Q6HP PRN PO 03/02/25 16:15 Nitroglycerin 0.4 mg Q5MINP PRN SL 03/02/25 16:15 Morphine Sulfate 2 mg Q30M PRN IV 03/02/25 16:15 Cancel Ipratropium [place] 0.5 mg Q4HWA NEB 03/02/25 18:00 03/04/25 10:47 0.5 MG Hydrocortisone Sodium Succinate 100 mg Q12HR IV 03/02/25 22:00 03/04/25 10:18 100 MG Vancomycin HCl 0 ml @ 0 mls/hr UD IV 03/02/25 16:45 Pantoprazole Sodium 40 mg DAILY IV 03/03/25 10:00 03/04/25 10:18 40 MG Diagnostic Test (Pha) 1 strip ACHS 03/02/25 17:00 03/04/25 11:12 1 STRIP Insulin Human Regular ACHS SC 03/02/25 17:00 03/03/25 21:36 2 UNITS Dextrose 50 ml UD PRN IV 03/02/25 17:00 Hydromorphone HCl 0.5 mg Q4HPRN PRN IV 03/02/25 21:00 03/03/25 23:36 0.5 MG Levalbuterol HCl 1.25 mg Q4HWA NEB 03/03/25 06:00 03/04/25 10:47 1.25 MG Hydralazine HCl 10 mg Q6HP PRN IV 03/03/25 15:45 Furosemide 40 mg BIDD IV 03/03/25 18:00 03/04/25 05:42 40 MG Examination Pt is lying on bed General Appearance: Severe respiratory distress and on high-flow HEENT: Atraumatic, Mucous membranes moist/pink Respiratory: decreased breath sounds on bilaterally and crackles all over the lungs more on right,on high flow NC Cardiovascular: Regular rate, Normal S1, Normal S2, No murmurs Abdominal: Active bowel sounds, Soft, no distention Extremities: right lower extremity injury Skin: As above Neuro: unable to finish due to patient status Nurse was there as refueling ramp supervisor during examination laboratory and microbiology Laboratory Tests 03/04/25 05:00 Test 03/04/25 05:00 Range/Units Serum Glucose 130 H 74-106 mg/dL Microbiology Date/Time Source Procedure Growth Status 03/02/25 18:25 Voided Urine Urine Culture - Preliminary Resulted 03/02/25 15:16 Blood Blood Culture - Preliminary NO GROWTH AFTER 24 HOURS OF INCUBATION. Resulted Labs and/or images reviewed: Labs reviewed by me, Image(s) reviewed by me Problem List/Assessment/Plan Problem List/Assessment/Plan [facility] [employer] [employer] # ? mechanical fall # Acute toxic/metabolic encephalopathy likely due to sepsis / Below # Intra cerebral hemorrhage # Secondary ventricular hemorrhage # Acute hydrocephalus # Brain edema # Brain herniation - [facility] ICU status - patient is currently on Hiflow NC ( no intubation because patient is DNR/DNI) - CT head without contrast showed Acute intracranial hemorrhage including intra- axial hemorrhage in the right basal ganglia and thalamus with rupture into the ventricular system, with associated hydrocephalus, right to left subfalcine midline shift measuring 10 mm, extensive bilateral cerebral sulcal effacement and white matter edema. - Neurology consult on board advised supportive treatment, avoid blood thinners/antiplatelets - Supportive care - goal to keep blood pressure below 140/90 CVS # Hx of CAD # hypertensive urgency # ? diastolic CHF exacerbation # Afib with RVR -started on amiodarone drip, no anticoagulation right now because of ongoing hemorrhagic stroke - elevated BNP - continuously monitor blood pressure - currently on hydralazine p.r.n. - no antiplatelet /blood thinners at this time - goal blood pressure is below 140/90 - Lasix 40 mg IV b.i.d. - echo from 01/13/2025 showed LVEF 71% RS # Severe sepsis likely due to PNA # Acute toxic/metabolic encephalopathy likely due to sepsis # Acute hypoxic respiratory failure likely from PNA # Acute Gram-positive /negative bacterial PNA vs Aspiration pneumonia - [facility] ICU status - patient is currently on Hiflow NC ( no intubation because patient is DNR/DNI) - CXR showed Multifocal right lung airspace disease - ordered pancultures - elevated lactic acid, repeat trending down - continuously monitor lab - currently on cefepime and vancomycin - sepsis protocol - hydrocortisone 200 mg b.i.d. - ordered urinalysis, pending - IVF - repeat CXR and ABG GI/Liver # Hx of Crohns - monitor for now Renal/Metabolic/Endo # JAGDISH likely VMN # Hypokalemia # hypomagnesemia # elevated lactic acid likely from sepsis - IVF given initially and discontinued - Repleting - Monitor lab and replenish electrolytes as needed - Avoid nephrotoxic agents - strict I&Os MSK # ? Mech fall # Rt leg injury POA likely from fall # Nondisplaced fracture involving the Rt 3rd proximal phalanx. -wound consult -Imaging showed nondisplaced fracture involving the Rt 3rd proximal phalanx. Heme-Onc - Monitor lab Drips- None Protonix No VTE PPX since patient is bleeding NPO for now Patient brought in with the code status of DNR/ DNI case discussed with Dr. Jo, and nurse Patient condition updated to his friend and daughter in law Critical care time spent excluding procedures 59 minutes Plan discussed with: Other (RN) My Orders My Orders Orders - MADELEINE ESCOBAR RESIDENT Procedure Category Date Status Time Hydralazine Injection PHA 03/03/25 In Process (Apresoline Inject 15:45 Mrsa Screen MARCIAL 03/03/25 In Process 15:45 Furosemide Injection PHA 03/03/25 In Process (Lasix Injection) 18:00 Chest Xray 1 View XY 03/04/25 Resulted 04:00 Abg W/ Co-Ox RT 03/04/25 Logged 04:00 * Dietary Consult CONS 03/03/25 Transmitted 16:39 Apply Barrier Cream CHERYL 03/03/25 In Process 16:39 Electrocardigram EKG 03/03/25 Logged 19:05 Amiodarone PHA 03/04/25 In Process 360mg/200ml Premix 02:00 Insert Midline ORDERS 03/03/25 Transmitted 19:49 Vancomycin,Random LAB 03/05/25 Verified 04:00 Creatinine LAB 03/05/25 Verified 04:00 Dietary Evaluation Review Comments: 1) TPN if NPO >7 days 2) Advance diet as medically feasible 3) if feeding tube is placed, consider TF Jevity 1.2Cal @ 65ml/hr. Start @ 20ml/hr, increase 10ml/hr Q4H until goal is reached. Water flush 150ml Q6H if allowed, adjust PRN TF at goal volume provides 100% energy & protein needs - 1872 kcal, 87gm protein, 1259 ml free water 4) [place] 1 pk daily 5) Monitor I/O, lab values, wt trend, skin trend Expected Outcomes/Goals: To meet >75% estimated needs Wound to improve Lab values to improve Fu 2-3 days Date of Service: Mar 04, 2025 Billing Provider: RUBEN JO MD Common Visit Codes: [id number] INP/OBS CARE(HIGH) MADELEINE ESCOBAR RESIDENT Mar 04, 2025 12:55 RUBEN JO MD Mar 05, 2025 23:59
[2025-03-04 13:35] LABS: Base Excess -5.2 mmol/L (-2.0-3.0)
[2025-03-04] MEDS: VANCOMYCIN 500mg/100mL 100 ML IV ONE (14:38)
[2025-03-04 20:34] LABS: Base Excess -5.6 mmol/L (-2.0-3.0)
[2025-03-04] MEDS: AMIODARONE 360mg/200mL PREMIX 200 ML IV ONE (22:09)
[2025-03-04 22:27] LABS: Anion Gap 15 (5-15); Calcium 9.3 mg/dL (8.7-10.4)
[2025-03-04 22:31] LABS: Carbon Dioxide 17 mmol/L (20-31); Chloride 114 mmol/L (98-107); Potassium 3.4 mmol/L (3.5-5.1); Sodium 146 mmol/L (136-145)
[2025-03-04 22:32] LABS: BUN/Creatinine Ratio 30.8 (10.0-20.0)
[2025-03-04 22:33] LABS: Blood Urea Nitrogen 40 mg/dL (9-23); Glucose 131 mg/dL (74-106); Magnesium 1.9 mg/dL (1.6-2.6)
[2025-03-04] MEDS: NOREPINEPHRINE 8 MG/250ML KIT 250 ML IV SCH (23:30)
--- NOTE | 2025-03-04 23:53 | DVHEEG2 ---
Neurology EEG Procedural Note Procedural Note EXAM DATE: 03/04/2025 REFERRING DOCTOR: Dr. Hardin TECHNIQUE: Eighteen channels of EEG, 2 channels of EOG, and 1 channel of EKG were recorded using the International 10/20 system. CLINICAL DATA: The patient was referred for an EEG evaluation for the evidence of seizure disorder. MEDICATIONS: See the chart BACKGROUND ACTIVITY: There was a lot of electrode artifacts blocking brain activity ACTIVATION: Hyperventilation: Not done Photic Stimulation: Not done Sleep: Not seen IMPRESSION: This is a nondiagnostic EEG, if seizure disorder is clinically indicated to rule out, please consider repeating EEG The EKG channel showed a regular heart rate of 120/[place] [address] DANUTA HARDIN MD Mar 04, 2025 23:53
[2025-03-05] VITALS (98 sets, daily range): BP systolic 96–155; BP diastolic 45–88; PULSE 73–139; RESP 11–33; TEMP 96.4–99.3; O2SAT 92–100
[2025-03-05] MEDS: POTASSIUM CHL 20MEQ/100ML 100 ML IV ONE (01:31)
[2025-03-05] MEDS: AMIODARONE 360mg/200mL PREMIX 200 ML IV SCH ×2 (04:19→17:45)
[2025-03-05 05:45] LABS: Hematocrit 35.6 % (36.0-46.0); Hemoglobin 11.8 g/dL (12.2-16.2); Mean Corpuscular Hemoglobin 31.9 pg (28.0-32.0); Mean Corpuscular Volume 96.5 fL (80.0-100.0); Nucleated Red Blood Cells % 0.0 %
--- NOTE | 2025-03-05 06:06 | DVH ---
CHEST RADIOGRAPH Indication: f/u Technique: Single frontal view of the chest was obtained COMPARISON: XY CHEST XRAY 1 VIEW on DOS: 03/04/25, XY CHEST PORTABLE on DOS: 03/03/25, XY CHEST XRAY 1 VIEW on DOS: 03/02/25, XY CHEST PORTABLE on DOS: 03/02/25, XY CHEST PORTABLE on DOS: 01/11/25 FINDINGS: Lines and Tubes: None Lungs: Stable appearing predominantly right hemithoracic multifocal pulmonary airspace disease. No ev idence of focal consolidation. Pleura: No effusion. No pneumothorax. Cardiomediastinal contours: Unremarkable Bones: Unremarkable IMPRESSION: 1. Stable appearing predominantly right hemithoracic multifocal pulmonary airspace disease.
[2025-03-05 08:16] LABS: Alkaline Phosphatase 64 U/L (46-116); Anion Gap 16 (5-15); BUN/Creatinine Ratio 41.5 (10.0-20.0); Calcium 9.0 mg/dL (8.7-10.4); Magnesium 1.8 mg/dL (1.6-2.6); Potassium 3.6 mmol/L (3.5-5.1); Total Protein 5.7 g/dL (5.7-8.2)
[2025-03-05 08:17] LABS: Bilirubin, Total 0.4 mg/dL (0.2-1.0)
[2025-03-05 08:20] LABS: Chloride 114 mmol/L (98-107); Sodium 148 mmol/L (136-145)
[2025-03-05 08:21] LABS: Alanine Aminotransferase 74 U/L (7-40); Albumin 3.1 g/dL (3.2-4.8); Blood Urea Nitrogen 51 mg/dL (9-23); Carbon Dioxide 18 mmol/L (20-31); Glucose 149 mg/dL (74-106)
--- NOTE | 2025-03-05 09:29 | ECG ---
[facility] Test Date: 2025-03-04 Test Time: 20:07:29 Pat Name: STEVE SANTIAGO Department: Room: 0201T Gender: F Recovery Assistant: SHADIA : 1945 Requested By: MADELEINE ESCOBAR Order Number: [id number] Reading MD: Kavon Lucas Measurements Intervals [place] Rate: 172 P: 0 VA: 0 QRS: -17 QRSD: 74 T: 22 QT: 258 QTc: 436 Interpretive Statements Atrial fibrillation with rapid ventricular response Nonspecific ST and T wave abnormality , probably digitalis effect Electronically Signed On 03-10-2025 13:51:02 PDT by Kavon Lucas Please click the below link to view image of tracing.
--- NOTE | 2025-03-05 09:29 | ECG ---
[facility] Test Date: 2025-03-03 Test Time: 19:13:30 Pat Name: STEVE SANTIAGO Department: Room: 0201T Gender: F [employer]op[employer] Operator: SHADIA : 1945 Requested By: MADELEINE ESCOBAR Order Number: [id number] Reading MD: Kavon Lucas Measurements Intervals [place] Rate: 149 P: 0 SD: 0 QRS: 3 QRSD: 72 T: 127 QT: 296 QTc: 466 Interpretive Statements Atrial fibrillation with rapid ventricular response ST & T wave abnormality, consider inferior ischemia or digitalis effect Electronically Signed On 03-10-2025 13:50:04 PDT by Kavon Lucas Please click the below link to view image of tracing.
--- NOTE | 2025-03-05 09:53 | DVHPN2 ---
Progress Note - Dictate Date Seen: Mar 05, 2025 Medical Necessity Reason Pt with a Central, PICC or Fol: Yes The following are medically ne: Orozco Catheter Subjective Mr. Mendoza is a 79 years old female with a history of dyslipidemia, rheumatoid arthritis, Crohn's disease, COPD, coronary artery disease, heart attack, she was brought to the hospital on 03/02/2025 because of altered mental status. I have seen and examined the patient, I have talked to her nurse, She is nonresponsive to verbal stimuli, but is respond to touch stimuli, she has mild to mother respiratory distress, she had tachycardia earlier Urinalysis, 03/02/2025: WBC: 2, urine leukocyte esterase: Negative Plasma alcohol, 03/02/2025: <3 ABG, 03/02/2025: Compensated metabolic acidosis WBC/HB/PLT/MCV, 03/02/2025: 31.1/16/217/99.1, 03/04/2025: 22.5/12.1/110/96.6 PT/INR/PTT, 03/02/2025: 12.7/1.22/29.1 HCO3, 03/03/2025: 19, 03/04/2020 5:18 a.m. BUN/CR, 03/03/2025: 23/1.45 GFR, 02/28/2025: 36 Lactic acid, 03/02/2025: 9.8, 8.3, four Beta hydroxybutyric acid, 03/02/2025: 0.0158 Liver function tests, 02/28/2025: Unremarkable TBI/AST/ALT/AP, 03/04/2025: 0.4/340/76/61 Ammonia, 03/02/2025: 27 Folic acid, 03/02/2025: 42.03 Chest x-ray, 03/02/2025: Multifocal right lung airspace disease Chest x-ray, 03/03/2025: Cardiomegaly with mild CHF Chest x-ray, 03/04/2025: Stable appearing right hemithoracic multifocal pulmonary airspace disease. X-ray, right leg, foot, 03/03/2025: Nondisplaced fracture involving the 3rd proximal phalanx. No fracture involving the right tibia / fibula. CT head, 02/28/2025: 1. Acute intracranial hemorrhage including intra-axial hemorrhage in the right basal ganglia and thalamus with rupture into the ventricular system, with associated hydrocephalus, right to left subfalcine midline shift measuring 10 mm, extensive bilateral cerebral sulcal effacement and white matter edema. 2. Fluid in the left mastoid air cells and middle ear suggestive of mastoiditis and otitis media vital signs Vital Sign Date Time Temp Pulse Resp B/P (MAP) Pulse Ox O2 Delivery O2 Flow Rate FiO2 03/05/25 09:42 78 18 126/63 97 40.0 30 03/05/25 06:00 Hi-Flow Heated NC+ 03/05/25 04:00 98.4 98.4 Total Intake and Output 03/04/25 03/04/25 03/05/25 15:00 23:00 07:00 Intake Total 274.94 ml 229.13 ml 404.14 ml Output Total 350 ml 800 ml Balance 274.94 ml -120.87 ml -395.86 ml medications Current Medications Medications Dose Ordered Sig/Damian Route Start Time Stop Time Status Last Admin Dose Admin Cefepime HCl 50 ml @ 12.5 mls/hr Q12HR IV 03/02/25 22:00 03/04/25 22:09 12.5 MLS/HR Ondansetron HCl 4 mg Q4HP PRN IV 03/02/25 16:15 Acetaminophen 650 mg Q6HP PRN PO 03/02/25 16:15 Nitroglycerin 0.4 mg Q5MINP PRN SL 03/02/25 16:15 Morphine Sulfate 2 mg Q30M PRN IV 03/02/25 16:15 Cancel Ipratropium [place] 0.5 mg Q4HWA NEB 03/02/25 18:00 03/05/25 05:41 0.5 MG Hydrocortisone Sodium Succinate 100 mg Q12HR IV 03/02/25 22:00 03/04/25 22:09 100 MG Vancomycin HCl 0 ml @ 0 mls/hr UD IV 03/02/25 16:45 Pantoprazole Sodium 40 mg DAILY IV 03/03/25 10:00 03/04/25 10:18 40 MG Diagnostic Test (Pha) 1 strip ACHS 03/02/25 17:00 03/05/25 06:03 1 STRIP Insulin Human Regular ACHS SC 03/02/25 17:00 03/05/25 06:05 2 UNITS Dextrose 50 ml UD PRN IV 03/02/25 17:00 Hydromorphone HCl 0.5 mg Q4HPRN PRN IV 03/02/25 21:00 03/04/25 22:30 0.5 MG Levalbuterol HCl 1.25 mg Q4HWA NEB 03/03/25 06:00 03/05/25 05:41 1.25 MG Hydralazine HCl 10 mg Q6HP PRN IV 03/03/25 15:45 Furosemide 40 mg BIDD IV 03/03/25 18:00 03/05/25 05:50 40 MG Norepinephrine Bitartrate 250 ml @ 3.75 mls/hr Q24H IV 03/04/25 23:30 objective General: the patient is well developed and nourished. No acute distress. Dried blood in the right foot MENTAL STATUS: Subjective SPEECH, LANGUAGE, HIGHER CORTICAL FUNCTION: She does not vocalize CRANIAL NERVES: Pupils are equally and reactive, eyes are in neutral position, there is doll's eye phenomena. She moves her jaw. Facial muscles symmetrical and strength intact. SENSATION: Respond to light painful stimuli MOTOR: Normal tone in the upper and lower extremity. Normal muscle bulk. No fasciculations. No abnormal movements or posturing. She moves the arms and legs from times time REFLEXES: Deep tendon reflexes are symmetrical. No pathological reflexes. CEREBELLAR/COORDINATION: Deferred GAIT/STATION: deferred laboratory and microbiology Laboratory Tests 03/05/25 05:18 Test 03/05/25 05:18 Range/Units Serum Glucose 149 H 74-106 mg/dL Problem List Altered mental status secondary to intra cerebral hemorrhage, secondary ventricular hemorrhage, brain herniation, hydrocephalus Intra cerebral hemorrhage Secondary ventricular hemorrhage Acute hydrocephalus Brain edema Brain herniation Leukocytosis/fever/lactic acidosis/sepsis Septic shock Right foot injury, fracture Assessment/Plan Monitoring Supportive treatment [facility] care Blood culture Follow-up blood tests Oxygen Avoid antiplatelet and anticoagulant agent Antibiotics IV fluids DVT prophylaxis/ICD GI prophylaxis/pantoprazole More recommendation per clinical course Family is to discuss about code status This medical document was created using an electronic medical record system with [employer] system. Although this document has been carefully reviewed, there may still be some phonetic and typographical errors. These areas are purely typographical due to imperfections of the software programs, and do not reflect any compromise in the patient's medical care. Prognosis Guarded Dietary Evaluation Review Comments: 1) TPN if NPO >7 days 2) Advance diet as medically feasible 3) if feeding tube is placed, consider TF Jevity 1.2Cal @ 65ml/hr. Start @ 20ml/hr, increase 10ml/hr Q4H until goal is reached. Water flush 150ml Q6H if allowed, adjust PRN TF at goal volume provides 100% energy & protein needs - 1872 kcal, 87gm protein, 1259 ml free water 4) [place] 1 pk daily 5) Monitor I/O, lab values, wt trend, skin trend Expected Outcomes/Goals: To meet >75% estimated needs Wound to improve Lab values to improve Fu 2-3 days Plan discussed with: Other DANUTA HARDIN MD Mar 05, 2025 09:53
[2025-03-05] MEDS: MAGNESIUM SULFATE 1GM/100ML 100 ML IV ONE (10:03)
[2025-03-05] MEDS: hydrALAZINE HCL 20 MG/ML VL IV PRN (10:28)
--- NOTE | 2025-03-05 15:23 | DVHPNRES ---
Progress Note Date Seen: Mar 05, 2025 Resident Creating Document: MADELEINE ESCOBAR RESIDENT Medical Necessity Reason Pt with a Central, PICC or Fol: Yes The following are medically ne: Orozco Catheter Subjective Review of Systems Patient seen and examined at the bedside. Unable to obtain ROS due to patient's status. Patient is currently on high-flow. Continue amiodarone drip. Patient reports: No new complaints Changes from previous H/P or p: No Changes Objective vital signs Vital Sign Date Time Temp Pulse Resp B/P (MAP) Pulse Ox O2 Delivery O2 Flow Rate FiO2 03/05/25 14:09 81 18 96 40.0 30 03/05/25 10:28 148/69 03/05/25 06:00 Hi-Flow Heated NC+ 03/05/25 04:00 98.4 98.4 Total Intake and Output 03/04/25 03/04/25 03/05/25 15:00 23:00 07:00 Intake Total 274.94 ml 229.13 ml 404.14 ml Output Total 350 ml 800 ml Balance 274.94 ml -120.87 ml -395.86 ml medications Current Medications Medications Dose Ordered Sig/Damian Route Start Time Stop Time Status Last Admin Dose Admin Cefepime HCl 50 ml @ 12.5 mls/hr Q12HR IV 03/02/25 22:00 03/05/25 10:01 12.5 MLS/HR Ondansetron HCl 4 mg Q4HP PRN IV 03/02/25 16:15 Acetaminophen 650 mg Q6HP PRN PO 03/02/25 16:15 Nitroglycerin 0.4 mg Q5MINP PRN SL 03/02/25 16:15 Morphine Sulfate 2 mg Q30M PRN IV 03/02/25 16:15 Cancel Ipratropium [place] 0.5 mg Q4HWA NEB 03/02/25 18:00 03/05/25 14:08 0.5 MG Hydrocortisone Sodium Succinate 100 mg Q12HR IV 03/02/25 22:00 03/05/25 10:01 100 MG Vancomycin HCl 0 ml @ 0 mls/hr UD IV 03/02/25 16:45 Pantoprazole Sodium 40 mg DAILY IV 03/03/25 10:00 03/05/25 10:01 40 MG Diagnostic Test (Pha) 1 strip ACHS 03/02/25 17:00 03/05/25 06:03 1 STRIP Insulin Human Regular ACHS SC 03/02/25 17:00 03/05/25 06:05 2 UNITS Dextrose 50 ml UD PRN IV 03/02/25 17:00 Hydromorphone HCl 0.5 mg Q4HPRN PRN IV 03/02/25 21:00 03/04/25 22:30 0.5 MG Levalbuterol HCl 1.25 mg Q4HWA NEB 03/03/25 06:00 03/05/25 14:08 1.25 MG Hydralazine HCl 10 mg Q6HP PRN IV 03/03/25 15:45 03/05/25 10:28 10 MG Furosemide 40 mg BIDD IV 03/03/25 18:00 03/05/25 05:50 40 MG Norepinephrine Bitartrate 250 ml @ 3.75 mls/hr Q24H IV 03/04/25 23:30 Examination Pt is lying on bed General Appearance: Severe respiratory distress and on high-flow HEENT: Atraumatic, Mucous membranes moist/pink Respiratory: decreased breath sounds on bilaterally and crackles all over the lungs more on right,on high flow NC Cardiovascular: Regular rate, Normal S1, Normal S2, No murmurs Abdominal: Active bowel sounds, Soft, no distention Extremities: right lower extremity injury Skin: As above Neuro: unable to finish due to patient status Nurse was there as swimming pool maintenance during examination laboratory and microbiology Laboratory Tests 03/05/25 05:18 Test 03/05/25 05:18 Range/Units Serum Glucose 149 H 74-106 mg/dL Microbiology Date/Time Source Procedure Growth Status 03/03/25 19:09 Nose MRSA Screen - Final Complete 03/02/25 18:25 Voided Urine Urine Culture - Final Complete 03/02/25 15:16 Blood Blood Culture - Preliminary NO GROWTH AFTER 48 HOURS OF INCUBATION. 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 mechanical fall # Acute toxic/metabolic encephalopathy likely due to sepsis / Below # Intra cerebral hemorrhage # Secondary ventricular hemorrhage # Acute hydrocephalus # Brain edema # Brain herniation - [facility] ICU status - patient is currently on Hiflow NC ( no intubation because patient is DNR/DNI) - CT head without contrast showed Acute intracranial hemorrhage including intra- axial hemorrhage in the right basal ganglia and thalamus with rupture into the ventricular system, with associated hydrocephalus, right to left subfalcine midline shift measuring 10 mm, extensive bilateral cerebral sulcal effacement and white matter edema. - Neurology consult on board advised supportive treatment, avoid blood thinners/antiplatelets - Supportive care - goal to keep blood pressure below 140/90 - Give one dose of mannitol 25 mg CVS # Hx of CAD # hypertensive urgency # ? diastolic CHF exacerbation # Afib with RVR -started on amiodarone drip, no anticoagulation right now because of ongoing hemorrhagic stroke - elevated BNP - continuously monitor blood pressure - currently on hydralazine p.r.n. - no antiplatelet /blood thinners at this time - goal blood pressure is below 140/90 - Lasix 40 mg IV b.i.d. - echo from 01/13/2025 showed LVEF 71% - Keep Mg >2 and K+ >4 RS # Severe sepsis likely due to PNA # Acute toxic/metabolic encephalopathy likely due to sepsis # Acute hypoxic respiratory failure likely from PNA # Acute Gram-positive /negative bacterial PNA vs Aspiration pneumonia - [facility] ICU status - patient is currently on Hiflow NC ( no intubation because patient is DNR/DNI) - CXR showed Multifocal right lung airspace disease - ordered pancultures - elevated lactic acid, repeat trending down - continuously monitor lab - currently on cefepime and vancomycin - sepsis protocol - hydrocortisone 200 mg b.i.d. - ordered urinalysis, pending - IVF - repeat CXR and ABG GI/Liver # Hx of Crohns - monitor for now Renal/Metabolic/Endo # JAGDISH likely VMN # Hypokalemia # hypomagnesemia # elevated lactic acid likely from sepsis - IVF given initially and discontinued - Repleting - Monitor lab and replenish electrolytes as needed - Avoid nephrotoxic agents - strict I&Os MSK [facility] # Rt leg injury POA likely from fall # Nondisplaced fracture involving the Rt 3rd proximal phalanx. -wound consult -Imaging showed nondisplaced fracture involving the Rt 3rd proximal phalanx. Heme-Onc - Monitor lab Drips- Amoidarone on 03/03/2025 Protonix No VTE PPX since patient is bleeding NPO for now Patient brought in with the code status of DNR/ DNI case discussed with Dr. Jo, and nurse Patient condition updated to his friend and daughter in law bed side for 89 minutes and answered all questions. Critical care time spent excluding procedures 59 minutes Plan discussed with: Other ([id number] & nurse) Dietary Evaluation Review Comments: 1) TPN if NPO >7 days 2) Advance diet as medically feasible 3) if feeding tube is placed, consider TF Jevity 1.2Cal @ 65ml/hr. Start @ 20ml/hr, increase 10ml/hr Q4H until goal is reached. Water flush 150ml Q6H if allowed, adjust PRN TF at goal volume provides 100% energy & protein needs - 1872 kcal, 87gm protein, 1259 ml free water 4) [place] 1 pk daily 5) Monitor I/O, lab values, wt trend, skin trend Expected Outcomes/Goals: To meet >75% estimated needs Wound to improve Lab values to improve Fu 2-3 days Date of Service: Mar 05, 2025 Billing Provider: RUBEN JO MD Common Visit Codes: [id number] INP/OBS CARE(HIGH) MADELEINE ESCOBAR RESIDENT Mar 05, 2025 15:23 RUBEN JO MD Mar 06, 2025 00:00
[2025-03-05] MEDS: MANNITOL 20% SOLN 100 gm/500ml 125 ML IV ONE (20:43)
[2025-03-05] MEDS: VANCOMYCIN 750mg/150ml 150 ML IV ONE (21:59)
[2025-03-06] VITALS (86 sets, daily range): BP systolic 103–163; BP diastolic 47–91; PULSE 69–171; RESP 16–45; TEMP 98–98.9; O2SAT 76–100
[2025-03-06] MEDS: AMIODARONE 360mg/200mL PREMIX 200 ML IV ONE ×2 (03:40→09:00)
[2025-03-06 05:29] LABS: Hematocrit 36.2 % (36.0-46.0); Hemoglobin 11.9 g/dL (12.2-16.2); Mean Corpuscular Hemoglobin 31.5 pg (28.0-32.0); Mean Corpuscular Volume 95.7 fL (80.0-100.0); Nucleated Red Blood Cells % 0.0 %
[2025-03-06 05:48] LABS: Albumin 3.4 g/dL (3.2-4.8); Alkaline Phosphatase 78 U/L (46-116); Anion Gap 14 (5-15); BUN/Creatinine Ratio 37.6 (10.0-20.0); Calcium 9.6 mg/dL (8.7-10.4); Carbon Dioxide 22 mmol/L (20-31); Magnesium 2.2 mg/dL (1.6-2.6); Total Protein 6.4 g/dL (5.7-8.2)
[2025-03-06 05:49] LABS: Alanine Aminotransferase 65 U/L (7-40); Bilirubin, Total 0.5 mg/dL (0.2-1.0); Blood Urea Nitrogen 41 mg/dL (9-23); Chloride 111 mmol/L (98-107); Glucose 138 mg/dL (74-106); Potassium 3.0 mmol/L (3.5-5.1); Sodium 147 mmol/L (136-145)
--- NOTE | 2025-03-06 06:11 | DVH ---
CHEST RADIOGRAPH Indication: f/u Technique: Single frontal view of the chest was obtained COMPARISON: XY CHEST XRAY 1 VIEW on DOS: 03/05/25, XY CHEST XRAY 1 VIEW on DOS: 03/04/25, XY CHEST PORT ABLE on DOS: 03/03/25, XY CHEST XRAY 1 VIEW on DOS: 03/02/25, XY CHEST PORTABLE on DOS: 03/02/25 FINDINGS: Lines and Tubes: None Lungs: Stable mild patchy multifocal bilateral pulmonary airspace disease. Pleura: No effusion. No pneumothorax. Cardiomediastinal contours: Unremarkable Bones: Unremarkable IMPRESSION: 1. Stable mild patchy multifocal bilateral pulmonary airspace disease.
[2025-03-06] MEDS: POTASSIUM CHL 20MEQ/100ML 100 ML IV SCH (06:23)
[2025-03-06 07:51] LABS: Base Excess -2.9 mmol/L (-2.0-3.0)
[2025-03-06] MEDS: AMIODARONE 360mg/200mL PREMIX 200 ML IV SCH (09:30)
[2025-03-06] MEDS: VANCOMYCIN 750MG KIT 100 ML IV SCH (12:00)
--- NOTE | 2025-03-06 15:04 | DVHPNRES ---
Progress Note Date Seen: Mar 06, 2025 Resident Creating Document: MADELEINE ESCOBAR RESIDENT Medical Necessity Reason Pt with a Central, PICC or Fol: Yes The following are medically ne: Orozco Catheter Subjective Review of Systems Patient seen and examined at the bedside. Unable to obtain ROS due to patient's status. Patient is currently on high-flow. Continue amiodarone drip. No change in clinical status. Changes from previous H/P or p: No Changes Objective vital signs Vital Sign Date Time Temp Pulse Resp B/P (MAP) Pulse Ox O2 Delivery O2 Flow Rate FiO2 03/06/25 14:35 97 24 100 40.0 30 03/06/25 14:00 145/68 (93) 03/06/25 14:00 Hi-Flow Heated NC+ 03/06/25 12:00 98.8 98.8 Total Intake and Output 03/05/25 03/05/25 03/06/25 15:00 23:00 07:00 Intake Total 416.64 ml 316.59 ml 166.63 ml Output Total 900 ml 1000 ml Balance 416.64 ml -583.41 ml -833.37 ml medications Current Medications Medications Dose Ordered Sig/Damian Route Start Time Stop Time Status Last Admin Dose Admin Cefepime HCl 50 ml @ 12.5 mls/hr Q12HR IV 03/02/25 22:00 03/06/25 09:00 12.5 MLS/HR Ondansetron HCl 4 mg Q4HP PRN IV 03/02/25 16:15 Acetaminophen 650 mg Q6HP PRN PO 03/02/25 16:15 Nitroglycerin 0.4 mg Q5MINP PRN SL 03/02/25 16:15 Morphine Sulfate 2 mg Q30M PRN IV 03/02/25 16:15 Cancel Ipratropium [place] 0.5 mg Q4HWA NEB 03/02/25 18:00 03/06/25 14:35 0.5 MG Hydrocortisone Sodium Succinate 100 mg Q12HR IV 03/02/25 22:00 03/06/25 08:55 100 MG Vancomycin HCl 0 ml @ 0 mls/hr UD IV 03/02/25 16:45 Pantoprazole Sodium 40 mg DAILY IV 03/03/25 10:00 03/06/25 08:55 40 MG Diagnostic Test (Pha) 1 strip ACHS 03/02/25 17:00 03/06/25 11:38 1 STRIP Insulin Human Regular ACHS SC 03/02/25 17:00 03/06/25 06:22 2 UNITS Dextrose 50 ml UD PRN IV 03/02/25 17:00 Hydromorphone HCl 0.5 mg Q4HPRN PRN IV 03/02/25 21:00 03/06/25 03:43 0.5 MG Levalbuterol HCl 1.25 mg Q4HWA NEB 03/03/25 06:00 03/06/25 14:35 1.25 MG Hydralazine HCl 10 mg Q6HP PRN IV 03/03/25 15:45 03/05/25 10:28 10 MG Furosemide 40 mg BIDD IV 03/03/25 18:00 03/05/25 05:50 40 MG Norepinephrine Bitartrate 250 ml @ 3.75 mls/hr Q24H IV 03/04/25 23:30 Vancomycin HCl 100 ml @ 100 mls/hr DAILY@0600 IV 03/06/25 12:00 Examination Pt is lying on bed General Appearance: Severe respiratory distress and on high-flow HEENT: Atraumatic, Mucous membranes moist/pink Respiratory: decreased breath sounds on bilaterally and crackles all over the lungs more on right,on high flow NC Cardiovascular: Irregularly irregular rate, Normal S1, Normal S2, No murmurs Abdominal: Active bowel sounds, Soft, no distention Extremities: right lower extremity injury, wrapped in dressing Skin: As above Neuro: Puplils are fixed and constricted, not reactive Nurse was there as crossing tender during examination laboratory and microbiology Laboratory Tests 03/06/25 04:49 Test 03/06/25 04:49 Range/Units Serum Glucose 138 H 74-106 mg/dL Microbiology Date/Time Source Procedure Growth Status 03/03/25 19:09 Nose MRSA Screen - Final Complete 03/02/25 18:25 Voided Urine Urine Culture - Final Complete 03/02/25 15:16 Blood Blood Culture - Preliminary NO GROWTH AFTER 72 HOURS OF INCUBATION. 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 # Acute toxic/metabolic encephalopathy likely due to sepsis / Below # Intra cerebral hemorrhage # Secondary ventricular hemorrhage # Acute hydrocephalus # Brain edema # Brain herniation - [facility] ICU status - patient is currently on Hiflow NC ( no intubation because patient is DNR/DNI) - CT head without contrast showed Acute intracranial hemorrhage including intra- axial hemorrhage in the right basal ganglia and thalamus with rupture into the ventricular system, with associated hydrocephalus, right to left subfalcine midline shift measuring 10 mm, extensive bilateral cerebral sulcal effacement and white matter edema. - Neurology consult on board advised supportive treatment, avoid blood thinners/antiplatelets - Supportive care - goal to keep blood pressure below 140/90 - Given one dose of mannitol 25 mg CVS # Hx of CAD # hypertensive urgency # ? diastolic CHF exacerbation # Afib with RVR -started on amiodarone drip, no anticoagulation right now because of ongoing hemorrhagic stroke - elevated BNP - continuously monitor blood pressure - currently on hydralazine p.r.n. - no antiplatelet /blood thinners at this time - goal blood pressure is below 140/90 - Lasix 40 mg IV b.i.d. - echo from 01/13/2025 showed LVEF 71% - Keep Mg >2 and K+ >4 - Monitor lab RS # Severe sepsis likely due to PNA # Acute toxic/metabolic encephalopathy likely due to sepsis # Acute hypoxic respiratory failure likely from PNA # Acute Gram-positive /negative bacterial PNA vs Aspiration pneumonia - [facility] ICU status - patient is currently on Hiflow NC ( no intubation because patient is DNR/DNI) - CXR showed Multifocal right lung airspace disease - ordered pancultures - elevated lactic acid, repeat trending down - continuously monitor lab - currently on cefepime and vancomycin - sepsis protocol - hydrocortisone 200 mg b.i.d. - ordered urinalysis, pending - IVF - repeat CXR and ABG GI/Liver # Hx of Crohns - monitor for now Renal/Metabolic/Endo # JAGDISH likely VMN # Hypokalemia # hypomagnesemia # elevated lactic acid likely from sepsis - IVF given initially and discontinued - Repleting - Monitor lab and replenish electrolytes as needed - Avoid nephrotoxic agents - strict I&Os MSK # Hx of RA # ? Mech fall # Rt leg injury POA likely from fall # Nondisplaced fracture involving the Rt 3rd proximal phalanx. -wound consult -Imaging showed nondisplaced fracture involving the Rt 3rd proximal phalanx. Heme-Onc - Monitor lab Drips- Amoidarone on 03/03/2025 Protonix No VTE PPX since patient is bleeding NPO for now Patient brought in with the code status of DNR/ DNI Case discussed with Dr. Jo, and nurse Patient condition updated to his friend, daughter in law and other family members at bed side for above 73 minutes and answered all questions and changed code status from chemical code to DNR/DNI Critical care time spent excluding procedures and family meet 47 minutes Plan discussed with: Son, Other ([id number] & nurse) My Orders My Orders Orders - MADELEINE ESCOBAR RESIDENT Procedure Category Date Status Time Chest Xray 1 View XY 03/06/25 Resulted 04:00 Abg W/ Co-Ox RT 03/06/25 Logged 04:00 Amiodarone PHA 03/06/25 In Process 360mg/200ml Premix 15:30 Nasal Tracheal Suction RT 03/06/25 Logged 10:05 Creatinine LAB 03/07/25 Verified 05:00 Creatinine LAB 03/08/25 Verified 05:00 Vancomycin,Trough LAB 03/08/25 Verified 05:00 Vancomycin Per CHERYL 03/08/25 In Process Pharmacy Protoc 05:00 Vancomycin 750mg Kit PHA 03/06/25 In Process (Vancomycin Hcl) 12:00 PTPTT LAB 03/06/25 In Process 14:18 * Picc Line Consult CONS 03/06/25 Transmitted 14:19 Code Status CODE 03/06/25 Transmitted 14:57 Dietary Evaluation Review Comments: 1) TPN if NPO >7 days 2) Advance diet as medically feasible 3) if feeding tube is placed, consider TF Jevity 1.2Cal @ 65ml/hr. Start @ 20ml/hr, increase 10ml/hr Q4H until goal is reached. Water flush 150ml Q6H if allowed, adjust PRN TF at goal volume provides 100% energy & protein needs - 1872 kcal, 87gm protein, 1259 ml free water 4) [place] 1 pk daily 5) Monitor I/O, lab values, wt trend, skin trend Expected Outcomes/Goals: To meet >75% estimated needs Wound to improve Lab values to improve Fu 2-3 days Date of Service: Mar 06, 2025 Billing Provider: RUBEN JO MD Common Visit Codes: [id number] INP/OBS CARE(HIGH) MADELEINE ESCOBAR RESIDENT Mar 06, 2025 15:04 RUBEN JO MD Mar 07, 2025 07:25
[2025-03-06 15:16] LABS: INR 1.14 (0.9-1.15); Partial Thromboplastin Time 26.3 SEC (24.5-34.5); Prothrombin Time 11.9 sec (9.3-11.8)
[2025-03-06] MEDS ORDERED: ONDANSETRON HCL 4 MG/2 ML VIAL IV PRN (18:45)
[2025-03-06] MEDS ORDERED: MORPHINE SULFATE INJ 2 MG/ml SYRG IV PRN (18:45)
--- NOTE | 2025-03-06 21:18 | DVHPN2 ---
Progress Note - Dictate Date Seen: Mar 06, 2025 Medical Necessity Reason Pt with a Central, PICC or Fol: Yes The following are medically ne: Orozco Catheter Subjective Mr. Mendoza is a 79 years old female with a history of dyslipidemia, rheumatoid arthritis, Crohn's disease, COPD, coronary artery disease, heart attack, she was brought to the hospital on 03/02/2025 because of altered mental status. I have seen and examined the patient, I have talked to her nurse, She is nonresponsive to verbal stimuli, but is responsive to touch, She has tachypnea Urinalysis, 03/02/2025: WBC: 2, urine leukocyte esterase: Negative Plasma alcohol, 03/02/2025: <3 ABG, 03/02/2025: Compensated metabolic acidosis WBC/HB/PLT/MCV, 03/02/2025: 31.1/16/217/99.1, 03/04/2025: 22.5/12.1/110/96.6 PT/INR/PTT, 03/02/2025: 12.7/1.22/29.1 Na 02/28/2025: Was sedated, 03/04/25: 146, 03/05/2025: 148, 03/06/2025: 147 HCO3, 03/03/2025: 19, 03/04/2020 5:18 a.m. BUN/CR, 03/03/2025: 23/1.45 GFR, 02/28/2025: 36 Lactic acid, 03/02/2025: 9.8, 8.3, four Beta hydroxybutyric acid, 03/02/2025: 0.0158 Liver function tests, 02/28/2025: Unremarkable TBI/AST/ALT/AP, 03/04/2025: 0.4/340/76/61 Ammonia, 03/02/2025: 27 Folic acid, 03/02/2025: 42.03 Chest x-ray, 03/02/2025: Multifocal right lung airspace disease Chest x-ray, 03/03/2025: Cardiomegaly with mild CHF Chest x-ray, 03/04/2025: Stable appearing right hemithoracic multifocal pulmonary airspace disease. X-ray, right leg, foot, 03/03/2025: Nondisplaced fracture involving the 3rd proximal phalanx. No fracture involving the right tibia / fibula. CT head, 02/28/2025: 1. Acute intracranial hemorrhage including intra-axial hemorrhage in the right basal ganglia and thalamus with rupture into the ventricular system, with associated hydrocephalus, right to left subfalcine midline shift measuring 10 mm, extensive bilateral cerebral sulcal effacement and white matter edema. 2. Fluid in the left mastoid air cells and middle ear suggestive of mastoiditis and otitis media vital signs Vital Sign Date Time Temp Pulse Resp B/P (MAP) Pulse Ox O2 Delivery O2 Flow Rate FiO2 03/06/25 20:47 84 24 148/64 03/06/25 20:00 93 Hi-Flow Heated NC+ 40 30 30 03/06/25 20:00 98.9 98.9 Total Intake and Output 03/05/25 03/05/25 03/06/25 15:00 23:00 07:00 Intake Total 416.64 ml 316.59 ml 199.96 ml Output Total 900 ml 1000 ml Balance 416.64 ml -583.41 ml -800.04 ml medications Current Medications Medications Dose Ordered Sig/Damian Route Start Time Stop Time Status Last Admin Dose Admin Cefepime HCl 50 ml @ 12.5 mls/hr Q12HR IV 03/02/25 22:00 03/06/25 09:00 12.5 MLS/HR Ondansetron HCl 4 mg Q4HP PRN IV 03/02/25 16:15 Acetaminophen 650 mg Q6HP PRN PO 03/02/25 16:15 Nitroglycerin 0.4 mg Q5MINP PRN SL 03/02/25 16:15 Morphine Sulfate 2 mg Q30M PRN IV 03/02/25 16:15 Cancel Ipratropium [place] 0.5 mg Q4HWA NEB 03/02/25 18:00 03/06/25 19:00 0.5 MG Hydrocortisone Sodium Succinate 100 mg Q12HR IV 03/02/25 22:00 03/06/25 08:55 100 MG Vancomycin HCl 0 ml @ 0 mls/hr UD IV 03/02/25 16:45 Pantoprazole Sodium 40 mg DAILY IV 03/03/25 10:00 03/06/25 08:55 40 MG Diagnostic Test (Pha) 1 strip ACHS 03/02/25 17:00 03/06/25 17:00 1 STRIP Insulin Human Regular ACHS SC 03/02/25 17:00 03/06/25 06:22 2 UNITS Dextrose 50 ml UD PRN IV 03/02/25 17:00 Hydromorphone HCl 0.5 mg Q4HPRN PRN IV 03/02/25 21:00 03/06/25 20:17 0.5 MG Levalbuterol HCl 1.25 mg Q4HWA [facility] 03/03/25 06:00 03/06/25 19:00 1.25 MG Hydralazine HCl 10 mg Q6HP PRN IV 03/03/25 15:45 03/05/25 10:28 10 MG Furosemide 40 mg BIDD IV 03/03/25 18:00 03/05/25 05:50 40 MG Norepinephrine Bitartrate 250 ml @ 3.75 mls/hr Q24H IV 03/04/25 23:30 Vancomycin HCl 100 ml @ 100 mls/hr DAILY@0600 IV 03/06/25 12:00 Acetylcysteine 100 mg Q4HR [facility] 03/06/25 22:00 Morphine Sulfate 2 mg Q2HPRN PRN IV 03/06/25 18:45 UNV Lorazepam 1 mg Q2HP PRN IV 03/06/25 18:45 Ondansetron HCl 4 mg Q4HPRN PRN IV 03/06/25 18:45 objective General: the patient is well developed and nourished. No acute distress. Dried blood in the right foot MENTAL STATUS: Subjective SPEECH, LANGUAGE, HIGHER CORTICAL FUNCTION: She does not vocalize CRANIAL NERVES: Pupils are equally and reactive, eyes are in neutral position, there is doll's eye phenomena. She moves her jaw. Facial muscles symmetrical and strength intact. SENSATION: Respond to light painful stimuli MOTOR: Normal tone in the upper and lower extremity. Normal muscle bulk. No fasciculations. No abnormal movements or posturing. No spontaneous extremity movement REFLEXES: Deep tendon reflexes are symmetrical. No pathological reflexes. CEREBELLAR/COORDINATION: Deferred GAIT/STATION: deferred laboratory and microbiology Laboratory Tests 03/06/25 04:49 Test 03/06/25 04:49 Range/Units Serum Glucose 138 H 74-106 mg/dL Problem List Altered mental status secondary to intra cerebral hemorrhage, secondary ventricular hemorrhage, brain herniation, hydrocephalus Intra cerebral hemorrhage Secondary ventricular hemorrhage Acute hydrocephalus Brain edema Brain herniation Leukocytosis/fever/lactic acidosis/sepsis Septic shock Hypernatremia Right foot injury, fracture Assessment/Plan Monitoring Supportive treatment [facility] care Blood culture Follow-up blood tests Oxygen Avoid antiplatelet and anticoagulant agent Antibiotics IV fluids DVT prophylaxis/ICD GI prophylaxis/pantoprazole More recommendation per clinical course This medical document was created using an electronic medical record system with [employer] dictation system. Although this document has been carefully reviewed, there may still be some phonetic and typographical errors. These areas are purely typographical due to imperfections of the software programs, and do not reflect any compromise in the patient's medical care. Prognosis guarded Dietary Evaluation Review Comments: 1) TPN if NPO >7 days 2) Advance diet as medically feasible 3) if feeding tube is placed, consider TF Jevity 1.2Cal @ 65ml/hr. Start @ 20ml/hr, increase 10ml/hr Q4H until goal is reached. Water flush 150ml Q6H if allowed, adjust PRN TF at goal volume provides 100% energy & protein needs - 1872 kcal, 87gm protein, 1259 ml free water 4) [place] 1 pk daily 5) Monitor I/O, lab values, wt trend, skin trend Expected Outcomes/Goals: To meet >75% estimated needs Wound to improve Lab values to improve Fu 2-3 days Plan discussed with: Other DANUTA HARDIN MD Mar 06, 2025 21:18
[2025-03-06] MEDS: ACETYLCYSTEINE 10 %(100MG/ML) SOL 4ML NEB SCH (21:59)
--- NOTE | 2025-03-06 23:29 | DVHPN2 ---
Progress Note - Dictate Date Seen: Mar 06, 2025 Medical Necessity Reason Pt with a Central, PICC or Fol: Yes The following are medically ne: Lyons Catheter Reason for lyons catheter: Strict I&O Subjective [facility] Patient seen and examined at bedside. Remains on supplemental oxygen Overnight events reviewed. vital signs Vital Sign Date Time Temp Pulse Resp B/P (MAP) Pulse Ox O2 Delivery O2 Flow Rate FiO2 03/06/25 22:00 29 99 Hi-Flow Heated NC+ 40 30 30 03/06/25 22:00 155 03/06/25 20:47 148/64 03/06/25 20:00 98.9 98.9 Total Intake and Output 03/05/25 03/05/25 03/06/25 15:00 23:00 07:00 Intake Total 416.64 ml 316.59 ml 199.96 ml Output Total 900 ml 1000 ml Balance 416.64 ml -583.41 ml -800.04 ml medications Current Medications Medications Dose Ordered Sig/Damian Route Start Time Stop Time Status Last Admin Dose Admin Cefepime HCl 50 ml @ 12.5 mls/hr Q12HR IV 03/02/25 22:00 03/06/25 22:16 12.5 MLS/HR Ondansetron HCl 4 mg Q4HP PRN IV 03/02/25 16:15 Acetaminophen 650 mg Q6HP PRN PO 03/02/25 16:15 Nitroglycerin 0.4 mg Q5MINP PRN SL 03/02/25 16:15 Morphine Sulfate 2 mg Q30M PRN IV 03/02/25 16:15 Cancel Ipratropium [place] 0.5 mg Q4HWA NEB 03/02/25 18:00 03/06/25 21:59 0.5 MG Hydrocortisone Sodium Succinate 100 mg Q12HR IV 03/02/25 22:00 03/06/25 22:16 100 MG Vancomycin HCl 0 ml @ 0 mls/hr UD IV 03/02/25 16:45 Pantoprazole Sodium 40 mg DAILY IV 03/03/25 10:00 03/06/25 08:55 40 MG Diagnostic Test (Pha) 1 strip ACHS 03/02/25 17:00 03/06/25 22:11 1 STRIP Insulin Human Regular ACHS SC 03/02/25 17:00 03/06/25 22:17 2 UNITS Dextrose 50 ml UD PRN IV 03/02/25 17:00 Hydromorphone HCl 0.5 mg Q4HPRN PRN IV 03/02/25 21:00 03/06/25 20:17 0.5 MG Levalbuterol HCl 1.25 mg Q4HWA [facility] 03/03/25 06:00 03/06/25 21:59 1.25 MG Hydralazine HCl 10 mg Q6HP PRN IV 03/03/25 15:45 03/05/25 10:28 10 MG Furosemide 40 mg BIDD IV 03/03/25 18:00 03/05/25 05:50 40 MG Norepinephrine Bitartrate 250 ml @ 3.75 mls/hr Q24H IV 03/04/25 23:30 Vancomycin HCl 100 ml @ 100 mls/hr DAILY@0600 IV 03/06/25 12:00 Acetylcysteine 100 mg Q4HR [facility] 03/06/25 22:00 03/06/25 21:59 100 MG Morphine Sulfate 2 mg Q2HPRN PRN IV 03/06/25 18:45 UNV Lorazepam 1 mg Q2HP PRN IV 03/06/25 18:45 Ondansetron HCl 4 mg Q4HPRN PRN IV 03/06/25 18:45 objective Gen.: Patient lying in bed in no apparent distress. On supplemental oxygen. Head: Normocephalic, atraumatic. Eyes: EOMI/PERRLA. Ears: Normal hearing. Normal anatomy. Neck/trachea: Trachea midline, supple. Nose: Normal external anatomy. Mouth: Moist mucous membranes. Chest: Decreased air entry bilaterally. No wheezing or rhonchi. Cardiovascular: Positive S1, positive S2. Regular rate and rhythm. Abdomen: Positive bowel sounds in all 4 quadrants. Soft, non-tender, non- distended. : Deferred. Rectal: Deferred. Skin: Warm, dry. Intact. Extremities: 2+ radial pulses bilaterally. No lower extremity edema. Neuro: Awake, alert, oriented x3. No gross motor or sensory deficits. Cranial nerves II through XII intact. Gait not assessed. laboratory and microbiology Laboratory Tests 03/06/25 04:49 Test 03/06/25 04:49 Range/Units Serum Glucose 138 H 74-106 mg/dL Assessment/Plan Impression: Acute hypoxic respiratory failure Dependence on supplemental oxygen Atrial fibrillation with RVR Intracranial hemorrhage Plan: On high flow supplemental oxygen, flow rate 40 LPM, FiO2 35% Titrate to keep O2 sats above 92%. Taper O2 as tolerated, transition to low flow. CXR reviewed; stable mild patchy multifocal bilateral pulmonary airspace disease. Head of bed elevation Aspiration precautions. Continue bronchodilators. Continue antibiotics Chest percussive therapy NTS Oral care. Amiodarone drip for AFib with RVR. Monitor renal function. Monitor electrolytes. Supplement as necessary. Potassium supplementation Monitor ins and outs. Awaiting for mentation to improve Precedex OK for agitation Poor prognosis DVT prophylaxis. Prognosis: Poor given patient's multiple co-morbidities. Condition: Critical Rest of plan per hospitalist and other consultants. A total of 35 minutes of critical care time was spent reviewing the patient record, examining the patient, making a diagnostic and therapeutic plan, discussing this plan with the medical personnel, following up on diagnostic studies and following the patient for clinical stability excluding any and all procedures. At least 50% of this time was spent in direct, [id number] contact. Thank you Dr. Aponte for allowing me to participate in this patient's care. Further recommendations will depend on the patient's clinical course. Please do not hesitate to contact me if you have any questions or concerns. This medical document was created using an electronic medical record system with [employer] dictation system. Although these documentations are being carefully reviewed, there may still be some phonetic and typographical changes. The errors are purely typographical, due to imperfection on the software program, and do not reflect any compromise in the patient's medical care. Dietary Evaluation Review Comments: 1) TPN if NPO >7 days 2) Advance diet as medically feasible 3) if feeding tube is placed, consider TF Jevity 1.2Cal @ 65ml/hr. Start @ 20ml/hr, increase 10ml/hr Q4H until goal is reached. Water flush 150ml Q6H if allowed, adjust PRN TF at goal volume provides 100% energy & protein needs - 1872 kcal, 87gm protein, 1259 ml free water 4) Chandler 1 pk daily 5) Monitor I/O, lab values, wt trend, skin trend Expected Outcomes/Goals: To meet >75% estimated needs Wound to improve Lab values to improve Fu 2-3 days Plan discussed with: Other (NATHAN Evans) Critical Care Time(min): 35 ISAAC SINGH MD Mar 06, 2025 23:28
[2025-03-07] VITALS (50 sets, daily range): BP systolic 103–172; BP diastolic 46–102; PULSE 67–121; RESP 13–30; TEMP 97.9–98.6; O2SAT 95–100
[2025-03-07] MEDS: LORazepam 2MG/ML-1ML VIAL IV PRN ×2 (03:42→16:04)
[2025-03-07 06:02] LABS: Hematocrit 39.4 % (36.0-46.0); Hemoglobin 12.5 g/dL (12.2-16.2); Mean Corpuscular Hemoglobin 31.8 pg (28.0-32.0); Mean Corpuscular Volume 100.4 fL (80.0-100.0); Nucleated Red Blood Cells % 0.1 %
[2025-03-07 06:18] LABS: Albumin 3.3 g/dL (3.2-4.8); Alkaline Phosphatase 79 U/L (46-116); Anion Gap 16 (5-15); BUN/Creatinine Ratio 47.9 (10.0-20.0); Calcium 9.5 mg/dL (8.7-10.4); Carbon Dioxide 22 mmol/L (20-31); Magnesium 2.2 mg/dL (1.6-2.6); Total Protein 6.0 g/dL (5.7-8.2)
[2025-03-07 06:19] LABS: Bilirubin, Total 0.6 mg/dL (0.2-1.0)
[2025-03-07 06:22] LABS: Alanine Aminotransferase 64 U/L (7-40); Blood Urea Nitrogen 46 mg/dL (9-23); Chloride 121 mmol/L (98-107); Glucose 135 mg/dL (74-106); Potassium 3.4 mmol/L (3.5-5.1); Sodium 159 mmol/L (136-145)
[2025-03-07] MEDS: ACETYLCYSTEINE 10 %(100MG/ML) SOL 4ML NEB SCH (06:53)
[2025-03-07] MEDS: D5W 5% 1,000 ML IV ONE (09:15)
[2025-03-07] MEDS: POTASSIUM CHL 20MEQ/100ML 100 ML IV SCH (09:30)
[2025-03-07] MEDS: LIDOCAINE 1% (LOCAL ANESTH.) PF 5ml SDV ID ONE (09:33)
[2025-03-07] MEDS: HYDROmorphone HCL 2 MG/ML VL/or syr IV PRN (13:37)
--- NOTE | 2025-03-07 14:24 | DVHPNRES ---
Progress Note Date Seen: Mar 07, 2025 Resident Creating Document: SHANNA MATTA RESIDENT Medical Necessity Reason Pt with a Central, PICC or Fol: Yes The following are medically ne: Lyons Catheter Reason for lyons catheter: Strict I&O Subjective Review of Systems Patient was seen and examined at bedside. She remained unresponsive, she is currently on simple mask, respiratory distress, gargling sounds. We will have a goals of care discussion today with family members. Objective vital signs Vital Sign Date Time Temp Pulse Resp B/P (MAP) Pulse Ox O2 Delivery O2 Flow Rate FiO2 03/07/25 13:37 78 20 146/64 03/07/25 12:45 100 03/07/25 12:00 Simple Mask* 6 50 03/07/25 08:00 98.4 98.4 Total Intake and Output 03/06/25 03/06/25 03/07/25 15:00 23:00 07:00 Intake Total 216.62 ml 83.30 ml 183.28 ml Output Total 650 ml 650 ml Balance 216.62 ml -566.70 ml -466.72 ml medications Current Medications Medications Dose Ordered Sig/Damian Route Start Time Stop Time Status Last Admin Dose Admin Morphine Sulfate 2 mg Q30M PRN IV 03/02/25 16:15 Cancel Hydromorphone HCl 0.5 mg Q1HP PRN IV 03/07/25 12:30 03/07/25 13:37 0.5 MG Lorazepam 1 mg Q1HP PRN IV 03/07/25 12:30 Examination Pt is lying on bed General Appearance: Severe respiratory distress and on high-flow HEENT: Atraumatic, Mucous membranes moist/pink Respiratory: decreased breath sounds on bilaterally and crackles all over the lungs more on right,on high flow NC Cardiovascular: Irregularly irregular rate, Normal S1, Normal S2, No murmurs Abdominal: Active bowel sounds, Soft, no distention Extremities: right lower extremity injury, wrapped in dressing Skin: As above Neuro: Puplils are fixed and constricted, not reactive Nurse was there as sales center manager during examination laboratory and microbiology Laboratory Tests 03/07/25 04:48 Test 03/07/25 04:48 Range/Units Serum Glucose 135 H 74-106 mg/dL Microbiology Date/Time Source Procedure Growth Status 03/03/25 19:09 Nose MRSA Screen - Final Complete 03/02/25 18:25 Voided Urine Urine Culture - Final Complete 03/02/25 15:16 Blood Blood Culture - Preliminary NO GROWTH AFTER 72 HOURS OF INCUBATION. Resulted Labs and/or images reviewed: Labs reviewed by me, Image(s) reviewed by me Problem List/Assessment/Plan Problem List/Assessment/Plan COOK RELIEF # ? mechanical fall # Acute toxic/metabolic encephalopathy likely due to sepsis / Below # Intra cerebral hemorrhage # Secondary ventricular hemorrhage # Acute hydrocephalus # Brain edema # Brain herniation - [facility] ICU status - patient is currently on simple mask ( no intubation because patient is DNR/DNI) - CT head without contrast showed Acute intracranial hemorrhage including intra- axial hemorrhage in the right basal ganglia and thalamus with rupture into the ventricular system, with associated hydrocephalus, right to left subfalcine midline shift measuring 10 mm, extensive bilateral cerebral sulcal effacement and white matter edema. - Neurology consult on board advised supportive treatment, avoid blood thinners/antiplatelets - Supportive care CVS # Hx of CAD # hypertensive urgency # ? diastolic CHF exacerbation # Afib with RVR -started on amiodarone drip, no anticoagulation right now because of ongoing hemorrhagic stroke - echo from 01/13/2025 showed LVEF 71% - Monitor lab RS # Severe sepsis likely due to PNA # Acute toxic/metabolic encephalopathy likely due to sepsis # Acute hypoxic respiratory failure likely from PNA # Acute Gram-positive /negative bacterial PNA vs Aspiration pneumonia - [facility] ICU status - CXR showed Multifocal right lung airspace disease GI/Liver # Hx of Crohns - monitor for now Renal/Metabolic/Endo # JAGDISH likely VMN # Hypokalemia # hypomagnesemia # elevated lactic acid likely from sepsis - Monitor lab and replenish electrolytes as needed - Avoid nephrotoxic agents - strict I&Os MSK # Hx of RA # ? Mech fall # Rt leg injury POA likely from fall # Nondisplaced fracture involving the Rt 3rd proximal phalanx. -Imaging showed nondisplaced fracture involving the Rt 3rd proximal phalanx. Heme-Onc - Monitor lab Protonix No VTE PPX since patient is bleeding Patient condition updated to his son and daughter in law and other family members at bed side for above 73 minutes and answered all questions and changed code status to comfort care; ativan and dilaudid prn Critical care time spent excluding procedures and family meet 47 minutes Case discussed with Dr. Garcia, and nurse Plan discussed with: Son, Other (RN) My Orders My Orders Orders - SHANNA MATTA RESIDENT Procedure Category Date Status Time Hydromorphone PHA 03/07/25 In Process Injection (Dilaudid 12:30 Lorazepam 2mg/Ml Inj PHA 03/07/25 In Process (Ativan Inj) 12:30 Code Status CODE 03/07/25 Transmitted 12:20 Dietary Evaluation Review Comments: 1) TPN if NPO >7 days 2) Advance diet as medically feasible 3) if feeding tube is placed, consider TF Jevity 1.2Cal @ 65ml/hr. Start @ 20ml/hr, increase 10ml/hr Q4H until goal is reached. Water flush 150ml Q6H if allowed, adjust PRN TF at goal volume provides 100% energy & protein needs - 1872 kcal, 87gm protein, 1259 ml free water 4) Chandler 1 pk daily 5) Monitor I/O, lab values, wt trend, skin trend Expected Outcomes/Goals: To meet >75% estimated needs Wound to improve Lab values to improve Fu 2-3 days Date of Service: Mar 07, 2025 Billing Provider: RUBEN GARCIA MD Common Visit Codes: 50001-[id number] INP/OBS CARE(HIGH) SHANNA MATTA RESIDENT Mar 07, 2025 14:24 RUBEN GARCIA MD Mar 07, 2025 22:40
[2025-03-07] MEDS ORDERED: SODIUM CHLOR 0.9% PF (SALINE LOCK) 10ML VIAL/SYR IV SCH (22:00)
--- NOTE | 2025-03-07 23:21 | DVHPN2 ---
Progress Note - Dictate Date Seen: Mar 07, 2025 Medical Necessity Reason Pt with a Central, PICC or Fol: Yes The following are medically ne: Lyons Catheter Reason for lyons catheter: Strict I&O Subjective [facility] Patient seen and examined at bedside. Remains on supplemental oxygen Overnight events reviewed. vital signs Vital Sign Date Time Temp Pulse Resp B/P (MAP) Pulse Ox O2 Delivery O2 Flow Rate FiO2 03/07/25 22:00 85 03/07/25 22:00 15 95 Nasal Cannula* 2 N/A Simple Mask* 03/07/25 20:43 120/70 03/07/25 20:00 97.9 97.9 Total Intake and Output 03/06/25 03/06/25 03/07/25 15:00 23:00 07:00 Intake Total 216.62 ml 83.30 ml 183.28 ml Output Total 650 ml 650 ml Balance 216.62 ml -566.70 ml -466.72 ml medications Current Medications Medications Dose Ordered Sig/Damian Route Start Time Stop Time Status Last Admin Dose Admin Morphine Sulfate 2 mg Q30M PRN IV 03/02/25 16:15 Cancel Hydromorphone HCl 0.5 mg Q1HP PRN IV 03/07/25 12:30 03/07/25 20:43 0.5 MG Lorazepam 1 mg Q1HP PRN IV 03/07/25 12:30 03/07/25 18:48 1 MG objective Gen.: Patient lying in bed in no apparent distress. On supplemental oxygen. Head: Normocephalic, atraumatic. Eyes: EOMI/PERRLA. Ears: Normal hearing. Normal anatomy. Neck/trachea: Trachea midline, supple. Nose: Normal external anatomy. Mouth: Moist mucous membranes. Chest: Decreased air entry bilaterally. No wheezing or rhonchi. Cardiovascular: Positive S1, positive S2. Regular rate and rhythm. Abdomen: Positive bowel sounds in all 4 quadrants. Soft, non-tender, non- distended. : Deferred. Rectal: Deferred. Skin: Warm, dry. Intact. Extremities: 2+ radial pulses bilaterally. No lower extremity edema. Neuro: Awake, alert, oriented x3. No gross motor or sensory deficits. Cranial nerves II through XII intact. Gait not assessed. laboratory and microbiology Laboratory Tests 03/07/25 04:48 Test 03/07/25 04:48 Range/Units Serum Glucose 135 H 74-106 mg/dL Assessment/Plan Impression: Acute hypoxic respiratory failure Dependence on supplemental oxygen Atrial fibrillation with RVR Intracranial hemorrhage Plan: On high flow supplemental oxygen, flow rate 40 LPM, FiO2 30% Titrate to keep O2 sats above 92%. Taper O2 as tolerated, transition to low flow. PICC line pending. Address goals of care. CXR reviewed; stable mild patchy multifocal bilateral pulmonary airspace disease. Head of bed elevation Aspiration precautions. Continue bronchodilators/Mucomyst. Continue antibiotics Chest percussive therapy NTS Oral care. Amiodarone drip for AFib with RVR. Monitor renal function. Monitor electrolytes. Supplement as necessary. Potassium supplementation Monitor ins and outs. Monitor closely d/t increased O2 requirements. Awaiting for mentation to improve Precedex OK for agitation Poor prognosis DVT prophylaxis. Prognosis: Poor given patient's multiple co-morbidities. Condition: Critical Rest of plan per hospitalist and other consultants. A total of 35 minutes of critical care time was spent reviewing the patient record, examining the patient, making a diagnostic and therapeutic plan, discussing this plan with the medical personnel, following up on diagnostic studies and following the patient for clinical stability excluding any and all procedures. At least 50% of this time was spent in direct, [id number] contact. Thank you Dr. Aponte for allowing me to participate in this patient's care. Further recommendations will depend on the patient's clinical course. Please do not hesitate to contact me if you have any questions or concerns. This medical document was created using an electronic medical record system with [employer] computerized dictation system. Although these documentations are being carefully reviewed, there may still be some phonetic and typographical changes. The errors are purely typographical, due to imperfection on the software program, and do not reflect any compromise in the patient's medical care. Dietary Evaluation Review Comments: 1) TPN if NPO >7 days 2) Advance diet as medically feasible 3) if feeding tube is placed, consider TF Jevity 1.2Cal @ 65ml/hr. Start @ 20ml/hr, increase 10ml/hr Q4H until goal is reached. Water flush 150ml Q6H if allowed, adjust PRN TF at goal volume provides 100% energy & protein needs - 1872 kcal, 87gm protein, 1259 ml free water 4) Chandler 1 pk daily 5) Monitor I/O, lab values, wt trend, skin trend Expected Outcomes/Goals: To meet >75% estimated needs Wound to improve Lab values to improve Fu 2-3 days Plan discussed with: Other (NATHAN Jacques) Critical Care Time(min): 35 ISAAC SINGH MD Mar 07, 2025 23:21
[2025-03-08] VITALS (45 sets, daily range): BP systolic 91–142; BP diastolic 41–74; PULSE 70–98; RESP 12–49; TEMP 98.8–99.7; O2SAT 87–100
--- NOTE | 2025-03-08 09:27 | DVHPN2 ---
Progress Note - Dictate Date Seen: Mar 08, 2025 Medical Necessity Reason Pt with a Central, PICC or Fol: Yes The following are medically ne: Lyons Catheter Reason for lyons catheter: Strict I&O Subjective Mr. Mendoza is a 79 years old female with a history of dyslipidemia, rheumatoid arthritis, Crohn's disease, COPD, coronary artery disease, heart attack, she was brought to the hospital on 03/02/2025 because of altered mental status. I have seen and examined the patient, I have talked to her nurse, She is responsive to touch, equal round, small and slightly reactive, she does not move the extremities Urinalysis, 03/02/2025: WBC: 2, urine leukocyte esterase: Negative Plasma alcohol, 03/02/2025: <3 ABG, 03/02/2025: Compensated metabolic acidosis WBC/HB/PLT/MCV, 03/02/2025: 31.1/16/217/99.1, 03/04/2025: 22.5/12.1/110/96.6 PT/INR/PTT, 03/02/2025: 12.7/1.22/29.1 Na 02/28/2025: Was sedated, 03/04/25: 146, 03/05/2025: 148, 03/06/2025: 147 HCO3, 03/03/2025: 19, 03/04/2020 5:18 a.m. BUN/CR, 03/03/2025: 23/1.45 GFR, 02/28/2025: 36 Lactic acid, 03/02/2025: 9.8, 8.3, four Beta hydroxybutyric acid, 03/02/2025: 0.0158 Liver function tests, 02/28/2025: Unremarkable TBI/AST/ALT/AP, 03/04/2025: 0.4/340/76/61 Ammonia, 03/02/2025: 27 Folic acid, 03/02/2025: 42.03 Chest x-ray, 03/02/2025: Multifocal right lung airspace disease Chest x-ray, 03/03/2025: Cardiomegaly with mild CHF Chest x-ray, 03/04/2025: Stable appearing right hemithoracic multifocal pulmonary airspace disease. X-ray, right leg, foot, 03/03/2025: Nondisplaced fracture involving the 3rd proximal phalanx. No fracture involving the right tibia / fibula. CT head, 02/28/2025: 1. Acute intracranial hemorrhage including intra-axial hemorrhage in the right basal ganglia and thalamus with rupture into the ventricular system, with associated hydrocephalus, right to left subfalcine midline shift measuring 10 mm, extensive bilateral cerebral sulcal effacement and white matter edema. 2. Fluid in the left mastoid air cells and middle ear suggestive of mastoiditis and otitis media vital signs Vital Sign Date Time Temp Pulse Resp B/P (MAP) Pulse Ox O2 Delivery O2 Flow Rate FiO2 03/08/25 08:03 82 16 100/52 03/08/25 08:00 92 Nasal Cannula* 2 03/08/25 04:00 98.8 98.8 Total Intake and Output 03/07/25 03/07/25 03/08/25 15:00 23:00 07:00 Intake Total 299.96 ml 0 ml 0 ml Output Total 250 ml 70 ml Balance 299.96 ml -250 ml -70 ml medications Current Medications Medications Dose Ordered Sig/Damian Route Start Time Stop Time Status Last Admin Dose Admin Morphine Sulfate 2 mg Q30M PRN IV 03/02/25 16:15 Cancel Hydromorphone HCl 0.5 mg Q1HP PRN IV 03/07/25 12:30 03/08/25 08:03 0.5 MG Lorazepam 1 mg Q1HP PRN IV 03/07/25 12:30 03/08/25 06:41 1 MG objective General: the patient is well developed and nourished. No acute distress. Dried blood in the right foot MENTAL STATUS: Subjective SPEECH, LANGUAGE, HIGHER CORTICAL FUNCTION: She does not vocalize CRANIAL NERVES: Pupils are equally and reactive, eyes are in neutral position, there is doll's eye phenomena. She moves her jaw. Facial muscles symmetrical and strength intact. SENSATION: Respond to light painful stimuli MOTOR: Normal tone in the upper and lower extremity. Normal muscle bulk. No fasciculations. No abnormal movements or posturing. No spontaneous extremity movement REFLEXES: Deep tendon reflexes are symmetrical. No pathological reflexes. CEREBELLAR/COORDINATION: Deferred GAIT/STATION: deferred laboratory and microbiology Laboratory Tests 03/07/25 04:48 Test 03/07/25 04:48 Range/Units Serum Glucose 135 H 74-106 mg/dL Problem List Altered mental status secondary to intra cerebral hemorrhage, secondary ventricular hemorrhage, brain herniation, hydrocephalus Intra cerebral hemorrhage Secondary ventricular hemorrhage Acute hydrocephalus Brain edema Brain herniation Leukocytosis/fever/lactic acidosis/sepsis Septic shock Hypernatremia Right foot injury, fracture Assessment/Plan Monitoring Supportive treatment Comfort care Neurology has no more offer, and will sign off Thank you very much for giving me an opportunity to take care of the pleasant lady This medical document was created using an electronic medical record system with [employer] dictation system. Although this document has been carefully reviewed, there may still be some phonetic and typographical errors. These areas are purely typographical due to imperfections of the software programs, and do not reflect any compromise in the patient's medical care. Prognosis poor Dietary Evaluation Review Comments: 1) TPN if NPO >7 days 2) Advance diet as medically feasible 3) if feeding tube is placed, consider TF Jevity 1.2Cal @ 65ml/hr. Start @ 20ml/hr, increase 10ml/hr Q4H until goal is reached. Water flush 150ml Q6H if allowed, adjust PRN TF at goal volume provides 100% energy & protein needs - 1872 kcal, 87gm protein, 1259 ml free water 4) Chandler 1 pk daily 5) Monitor I/O, lab values, wt trend, skin trend Expected Outcomes/Goals: To meet >75% estimated needs Wound to improve Lab values to improve Fu 2-3 days Plan discussed with: Other DANUTA HARDIN MD Mar 08, 2025 09:27
--- NOTE | 2025-03-08 15:58 | ECG ---
[facility] Test Date: 2025-03-06 Test Time: 01:57:44 Pat Name: STEVE SANTIAGO Department: Room: 0201T Gender: F Community Recreation Coordinator: : 1945 Requested By: BHAVIN SARAVIA Order Number: [id number] Reading MD: Kavon Lucas Measurements Intervals [place] Rate: 152 P: 0 MS: 0 QRS: 19 QRSD: 84 T: 81 QT: 310 QTc: 492 Interpretive Statements Atrial fibrillation with rapid ventricular response Nonspecific ST and T wave abnormality , probably digitalis effect Electronically Signed On 03-10-2025 13:52:00 PDT by Kavon Lucas Please click the below link to view image of tracing.
--- NOTE | 2025-03-08 18:08 | DVHPNRES ---
Progress Note Date Seen: Mar 08, 2025 Resident Creating Document: MADELEINE ESCOBAR RESIDENT Medical Necessity Reason Pt with a Central, PICC or Fol: Yes The following are medically ne: Lyons Catheter Reason for lyons catheter: Strict I&O Subjective Review of Systems Patient seen and examined at the bedside. Family at bedside. Unable to obtain ROS due to patient's clinical status. Patient is currently on comfort measures only, receiving Dilaudid and Ativan as needed every 1 hour. Changes from previous H/P or p: No Changes Objective vital signs Vital Sign Date Time Temp Pulse Resp B/P (MAP) Pulse Ox O2 Delivery O2 Flow Rate FiO2 03/08/25 17:30 81 20 123/57 (79) 96 03/08/25 16:00 Nasal Cannula* 2 N/A Simple Mask* 03/08/25 16:00 99.7 99.7 Total Intake and Output 03/07/25 03/07/25 03/08/25 15:00 23:00 07:00 Intake Total 299.96 ml 0 ml 0 ml Output Total 250 ml 70 ml Balance 299.96 ml -250 ml -70 ml medications Current Medications Medications Dose Ordered Sig/Damian Route Start Time Stop Time Status Last Admin Dose Admin Morphine Sulfate 2 mg Q30M PRN IV 03/02/25 16:15 Cancel Hydromorphone HCl 0.5 mg Q1HP PRN IV 03/07/25 12:30 03/08/25 15:32 0.5 MG Lorazepam 1 mg Q1HP PRN IV 03/07/25 12:30 03/08/25 13:15 1 MG Examination Pt is lying on bed General Appearance: Mild respiratory distress and on simple nasal cannula HEENT: Atraumatic, Mucous membranes moist/pink Respiratory: decreased breath sounds on bilaterally and crackles all over the lungs more on right,on NC Cardiovascular: Irregularly irregular rate, Normal S1, Normal S2, No murmurs Abdominal: Active bowel sounds, Soft, no distention Extremities: right lower extremity injury, wrapped in dressing Skin: As above Neuro: Puplils are fixed and constricted, not reactive Nurse was there as certified medical biller during examination laboratory and microbiology Laboratory Tests 03/07/25 04:48 Test 03/07/25 04:48 Range/Units Serum Glucose 135 H 74-106 mg/dL Microbiology Date/Time Source Procedure Growth Status 03/03/25 19:09 Nose MRSA Screen - Final Complete 03/02/25 18:25 Voided Urine Urine Culture - Final Complete 03/02/25 15:16 Blood Blood Culture - Final NO GROWTH AFTER 5 DAYS OF INCUBATION. 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 mechanical fall # Acute toxic/metabolic encephalopathy likely due to sepsis / Below # Intra cerebral hemorrhage # Secondary ventricular hemorrhage # Acute hydrocephalus # Brain edema # Brain herniation -discontinued everything and currently on comfort measures with the Dilaudid and Ativan CVS # Hx of CAD # hypertensive urgency # ? diastolic CHF exacerbation # Afib with RVR -discontinued everything and currently on comfort measures with the Dilaudid and Ativan RS # Severe sepsis likely due to PNA # Acute toxic/metabolic encephalopathy likely due to sepsis # Acute hypoxic respiratory failure likely from PNA # Acute Gram-positive /negative bacterial PNA vs Aspiration pneumonia - [facility] ICU status -discontinued everything and currently on comfort measures with the Dilaudid and Ativan GI/Liver # Hx of Crohns - monitor for now Renal/Metabolic/Endo # JAGDISH likely VMN # Hypokalemia # hypomagnesemia # elevated lactic acid likely from sepsis --discontinued everything and currently on comfort measures with the Dilaudid and Ativan MSK # Hx of RA # ? Mech fall # Rt leg injury POA likely from fall # Nondisplaced fracture involving the Rt 3rd proximal phalanx. -discontinued everything and currently on comfort measures with the Dilaudid and Ativan Heme-Onc - -discontinued everything and currently on comfort measures with the Dilaudid and Ativan Drips- Amoidarone on 03/03/2025 discontinued on 03/07 because of only comfort measures Protonix discontinued No VTE PPX since patient is bleeding NPO for now Patient brought in with the code status of DNR/ DNI and currently comfort measures only Case discussed with Dr. Davis, and nurse Patient condition updated to his friend, daughter in law and other family members at bed side for above 73 minutes and answered all questions and changed code status from chemical code to DNR/DNI --> comfort measures only Critical care time spent excluding procedures and family meet 47 minutes Plan discussed with: Other ([id number] and nurse) Dietary Evaluation Review Comments: 1) TPN if NPO >7 days 2) Advance diet as medically feasible 3) if feeding tube is placed, consider TF Jevity 1.2Cal @ 65ml/hr. Start @ 20ml/hr, increase 10ml/hr Q4H until goal is reached. Water flush 150ml Q6H if allowed, adjust PRN TF at goal volume provides 100% energy & protein needs - 1872 kcal, 87gm protein, 1259 ml free water 4) Chandler 1 pk daily 5) Monitor I/O, lab values, wt trend, skin trend Expected Outcomes/Goals: To meet >75% estimated needs Wound to improve Lab values to improve Fu 2-3 days Date of Service: Mar 08, 2025 Billing Provider: DINA DAVIS MD Common Visit Codes: [id number] CARE 30-74 MIN MADELEINE ESCOBAR RESIDENT Mar 08, 2025 18:08 DINA DAVIS MD Mar 09, 2025 15:24
[2025-03-09] VITALS (45 sets, daily range): BP systolic 112–180; BP diastolic 39–90; PULSE 57–94; RESP 15–27; TEMP 97.6–98.9; O2SAT 86–99
--- NOTE | 2025-03-09 16:52 | DVHDSRES ---
Discharge Summary Date of Admission Resident Creating Document: MADELEINE ESCOBAR RESIDENT Mar 02, 2025 at 16:09 Date of Discharge: Mar 09, 2025 Admitting Diagnosis Mechanical fall Labs/Diagnostic Data: Laboratory Results Test 03/07/25 11:47 03/07/25 04:48 03/06/25 14:50 03/06/25 07:30 POC Glucose 119 mg/dl (70-106) White Blood Count 19.7 10^3/uL (4.4-10.8) Red Blood Count 3.92 10^6/uL (4.0-5.20) Hemoglobin 12.5 g/dL (12.2-16.2) Hematocrit 39.4 % (36.0-46.0) Mean Corpuscular Volume 100.4 fL (80.0-100.0) Mean Corpuscular Hemoglobin 31.8 pg (28.0-32.0) Mean Corpuscular Hemoglobin Concent 31.7 g/dL (32.0-36.0) Red Cell Distribution Width 17.1 % (11.8-14.3) Platelet Count 109 10^3/uL (140-450) Mean Platelet Volume 9.5 fL (6.9-10.8) Neutrophils (%) (Auto) 88.0 % (37.0-80.0) Lymphocytes (%) (Auto) 5.4 % (10.0-50.0) Monocytes (%) (Auto) 6.4 % (0.0-12.0) Eosinophils (%) (Auto) 0.1 % (0.0-7.0) Basophils (%) (Auto) 0.1 % (0.0-2.0) Neutrophils # (Auto) 17.4 10 ^3/uL (1.6-8.6) Lymphocytes # (Auto) 1.1 10 ^3/uL (0.4-5.4) Monocytes # (Auto) 1.3 10 ^3/uL (0-1.3) Eosinophils # (Auto) 0 10 ^3/uL (0-0.8) Basophils # (Auto) 0 10 ^3/uL (0-0.2) Nucleated Red Blood Cells 0.1 % Sodium Level 159 mmol/L (136-145) Potassium Level 3.4 mmol/L (3.5-5.1) Chloride Level 121 mmol/L (98-107) Carbon Dioxide Level 22 mmol/L (20-31) Anion Gap 16 (5-15) Blood Urea Nitrogen 46 mg/dL (9-23) Creatinine 0.96 mg/dL (0.550-1.02) Glomerular Filtration Rate Calc 59 mL/min (>90) BUN/Creatinine Ratio 47.9 (10.0-20.0) Serum Glucose 135 mg/dL (74-106) Calcium Level 9.5 mg/dL (8.7-10.4) Magnesium Level 2.2 mg/dL (1.6-2.6) Total Bilirubin 0.6 mg/dL (0.2-1.0) Aspartate Amino Transferase (AST) 74 U/L (13-40) Alanine Aminotransferase (ALT) 64 U/L (7-40) Alkaline Phosphatase 79 U/L (46-116) Total Protein 6.0 g/dL (5.7-8.2) Albumin 3.3 g/dL (3.2-4.8) Prothrombin Time 11.9 sec (9.3-11.8) Prothrombin Time INR 1.14 (0.9-1.15) Activated Partial Thromboplast Time 26.3 SEC (24.5-34.5) Blood Gas Specimen Type Arterial Blood Gas Sample Site Left radial Blood Gas Patient Temperature 37.0 Arterial Blood Date Drawn [id number] Arterial Blood pH 7.468 (7.350-7.450) Arterial Blood Partial Pressure CO2 27.4 mmHg (32.0-45.0) Arterial Blood Partial Pressure O2 85.6 mmHg (83.0-108.0) Arterial Blood HCO3 19.4 mmol/L (21.0-28.0) Arterial Blood Oxygen Saturation 96.1 % (94.0-98.0) Arterial Blood Base Excess -2.9 mmol/L (-2.0-3.0) Arterial Blood Oxyhemoglobin 95.4 % (94.0-98.0) Arterial Blood Carboxyhemoglobin 0.4 % (0.5-1.5) Arterial Blood Methemoglobin 0.3 % (0.0-1.5) Conner Test Yes Blood Gas Total Hemoglobin 13.20 g/dL (12.0-16.0) Blood Gas Liter Flow 40.00 Blood Gas Modality High flow FiO2 % 35.0 Test 03/06/25 04:49 03/03/25 03:13 03/02/25 21:53 03/02/25 18:50 Serum Osmolality 349 mOsm/kg (278-298) Random Vancomycin Level 20.6 ug/mL (5-10) Differential Total Cells Counted 100.0 (100) Neutrophils % (Manual) 70 (37.0-80.0) Band Neutrophils % (Manual) 15 Lymphocytes % (Manual) 9 (10.0-50.0) Monocytes % (Manual) 6 (0-12) Eosinophils % (Manual) 0 (0-7) Basophils % (Manual) 0 (0.0-2.0) Metamyelocytes % (manual) 0 Myelocytes % (Manual) 0 Promyelocytes % (Manual) 0 Blast Cells % (Manual) 0 Reactive Lymphocytes 0 Platelet Estimate Adequate Lactic Acid Level 4.0 mmol/L (0.4-2.0) Influenza Type A Antigen Negative (Negative) Influenza Type B Antigen Negative (Negative) SARS-CoV-2 Antigen (Rapid) Negative (NEGATIVE) Test 03/02/25 18:25 03/02/25 17:26 03/02/25 15:16 03/02/25 14:38 Urine Color Yellow (Yellow) Urine Clarity Turbid (Clear) Urine pH 6.5 (5.0-9.0) Urine Specific [place] 1.022 (1.001-1.035) Urine Protein 3+ (Negative) Urine Ketones 1+ (Negative) Urine Blood 2+ /uL (Negative) Urine Nitrite Negative (Negative) Urine Bilirubin Negative (Negative) Urine Urobilinogen Normal mg/dL (Negative) Urine Leukocyte Esterase Negative /uL (Negative) Urine RBC 9 /hpf (0 - 4) Urine Microscopic WBC 2 /HPF (0-5) Urine Squamous Epithelial Cells Mod /hpf (<5) Urine Bacteria None seen /hpf (None Seen) Urine Hyaline Casts Mod /lpf (0 - 2) Urine Mucus Few (None Seen) Urine Glucose 3+ mg/dL (Normal) Ammonia 27 umol/L (11-32) B-Type Natriuretic Peptide 2402.70 pg/mL (0-100) Folic Acid 42.03 ng/mL (>5.38) Beta-Hydroxybutyric Acid 0.158 mmol/L (< 0.4) Anisocytosis (manual) Slight Plasma/Serum Blood Alcohol < 3.0 mg/dL (<10) Blood Gas Set Respiration Rate 12.0 Blood Gas Spontaneous Rate 32 Blood Gas EPAP 5 Blood Gas IPAP 12 Other Laboratory Tests 03/07/25 04:48 Brief Hx & Hospital Course: STEVE SANTIAGO, an 79-year-old female with a past medical history of hypertension, coronary artery disease (CAD), Crohn's disease, osteoarthritis, and osteoporosis, presented to the emergency department with altered level of consciousness (ALOC). The patient was a poor historian due to being on BiPAP and in severe respiratory distress; history was obtained from the EMR and ED reports. She was brought in by paramedics from a care facility after being found altered since the previous evening. Her baseline mental status prior to the event was good according to family. Initial evaluation revealed acute intracranial hemorrhage involving the right basal ganglia and thalamus with intraventricular extension, hydrocephalus, 10 mm [id number] midline shift, and extensive cerebral edema. Neurology recommended supportive care with avoidance of anticoagulation and antiplatelet therapy. Blood pressure was managed with a goal of <140/90 mmHg, and a single dose of mannitol was administered. Cardiovascular evaluation noted a history of CAD, hypertensive urgency, and possible diastolic heart failure exacerbation. The patient developed atrial fibrillation with rapid ventricular response and was started on an amiodarone drip. Anticoagulation was withheld due to the ongoing hemorrhagic stroke. BNP was elevated, and Lasix was administered. Electrolyte goals included maintaining magnesium >2 and potassium >4. Respiratory findings were consistent with severe sepsis likely secondary to pneumonia, leading to acute hypoxic respiratory failure. The patient remained on high-flow nasal cannula (HiFlow NC) due to her DNR/DNI status. Chest X-ray showed multifocal right lung airspace disease. She was managed with cefepime, vancomycin, hydrocortisone, and IV fluids per sepsis protocol. Lactic acid was initially elevated but trended down with treatment.Renal and metabolic evaluation revealed acute kidney injury likely due to volume depletion, along with hypokalemia and hypomagnesemia. Electrolytes were repleted, and nephrotoxic agents were avoided. Strict intake and output monitoring was maintained. Musculoskeletal assessment noted a possible mechanical fall with a nondisplaced fracture of the right third proximal phalanx. Wound care was consulted. After a comprehensive discussion with the family regarding the patient's prognosis and wishes, the decision was made to transition to comfort care. All active medical management was discontinued, and the patient was started on Dilaudid and Ativan as needed for comfort. She is being discharged to a hospice facility for end-of-life care. All concerns were addressed with the family and agreed to plan. Pt is lying on bed General Appearance: Mild respiratory distress and on simple nasal cannula HEENT: Atraumatic, Mucous membranes moist/pink Respiratory: Decreased breath sounds on bilaterally and crackles all over the lungs more on right,on NC Cardiovascular: Irregularly irregular rate, Normal S1, Normal S2, No murmurs Abdominal: Active bowel sounds, Soft, no distention Extremities: right lower extremity injury, wrapped in dressing Skin: As above Neuro: Puplils are fixed and constricted, not reactive Nurse was there as materials intern during examination time spent in discharge planning was 41 mins Operations or Procedures CT HEAD WITHOUT CONTRAST IMPRESSION: 1. Acute intracranial hemorrhage including intra-axial hemorrhage in the right basal ganglia and thalamus with rupture into the ventricular system, with associated hydrocephalus, right to left subfalcine midline shift measuring 10 mm, extensive bilateral cerebral sulcal effacement and white matter edema. 2. Fluid in the left mastoid air cells and middle ear suggestive of mastoiditis and otitis media. Critical findings Critical Result: Acute intracranial hemorrhage Findings discussed with Dr Iqbal at 03/03/2025 08:52 AM, and acknowledged receipt and understanding of the findings. ------ XY R FOOT 2 VIEW XRAY, XY R TIB FIB XRAY FINDINGS/IMPRESSION: Nondisplaced fracture involving the 3rd proximal phalanx. No fracture involving the right tibia / fibula. ------- CHEST RADIOGRAPH IMPRESSION: Multifocal right lung airspace disease Condition at Discharge: Guarded Final Diagnosis/Problems List # ? mechanical fall # Acute toxic/metabolic encephalopathy likely due to sepsis / Below # Intra cerebral hemorrhage # Secondary ventricular hemorrhage associated with acute hydrocephalus, brain edema and herniation # Hx of CAD # hypertensive urgency # ? diastolic CHF exacerbation # Afib with RVR # Severe sepsis likely due to PNA # Acute hypoxic respiratory failure likely from PNA # Acute Gram-positive /negative bacterial PNA vs Aspiration pneumonia # Hx of Crohns - monitor for now # JAGDISH likely VMN # Hypokalemia # hypomagnesemia # elevated lactic acid likely from sepsis # Hx of RA # Rt leg injury POA likely from fall # Nondisplaced fracture involving the Rt 3rd proximal phalanx. Discharge Disposition: Hospice- Medical Facility Discharge Instruct/Medications Diet: See Comment Diet comment: If/as tolerates Activity: No Restrictions, As Tolerated Follow Up/Referral: Followed up by Hospice physician Medications: Dilaudid and Ativan Q1PRN Scheduled Atorvastatin Calcium (Atorvastatin Calcium), 1 TAB PO DAILY, (Reported) Cholecalciferol (Vitamin D3), 1 TAB PO DAILY, (Reported) Folic Acid (Folic Acid), 1 MG PO DAILY, (Reported) Gabapentin (Gabapentin), 600 MG PO TID, (Reported) Gabapentin (Gabapentin), 800 MG PO TID, (Reported) Hydrocodone-Acetaminophen (Hydrocodone Bitartrate/AC 10-325 mg), 1 TAB PO T26HPFR, (Reported) Lidocaine Hcl (Lidocaine Viscous), 10 ML PO Q6HR Metoprolol Tartrate (Metoprolol Tartrate), 25 MG PO BID, (Reported) Scheduled PRN Alum & Mag Hydrox-Simethicone (Magic Mouthwash), 80 ML MT TIDPRN PRN Miscellaneous Medications Methotrexate (Methotrexate), 2.5 MG PO, (Reported) Oxybutynin Chloride (Oxybutynin Chloride), 10 MG PO, (Reported) Pantoprazole Sodium Sesquihydr (Pantoprazole Sodium), 40 MG PO, (Reported) Discharge Statement: "Patient was advised to return to the ER or call 911 if any headaches, dizziness, shortness of breath, chest pain, abdominal pain, bleeding, fevers, or worsening of medical condition. Patient was counseled about treatment plan, medications, possible side effects, patientverbalized understanding. All questions were answered to the best of my ability. This discharge took greater then 30 minutes in planning, reviewing documentation, counseling the patient, and discussing with other team members." ASSESSMENT ASSESSMENT Assessment Intracerebral hemorrhage Date of Service: Mar 09, 2025 Billing Provider: DINA DAVIS MD Common Visit Codes: [id number] DISCH DAY >30min Secondary Visit Codes: [id number] CARE PLAN 30 MINUTES MADELEINE ESCOBAR RESIDENT Mar 09, 2025 16:52 DINA DAVIS MD Mar 10, 2025 10:04
[2025-03-09] MEDS: D5W/SOD CHL 0.45% 1,000 ML IV SCH (17:30)
[2025-03-10] VITALS: PULSE 92; RESP 19; O2SAT 89
[2025-03-10 08:00] VITALS: RESP 22; O2SAT 93
[2025-03-10 09:00] VITALS: BP 163/77; PULSE 79; RESP 18; TEMP 97.7; O2SAT 96
[2025-03-10] MEDS: LORazepam 2MG/ML-1ML VIAL IV ONE (09:00)
[2025-03-10 10:26] VITALS: BP 148/79; PULSE 63; RESP 22; TEMP 36.5
[2025-03-10 12:19] VITALS: BP 150/60; PULSE 67; RESP 20
--- NOTE | 2025-03-10 13:54 | DVHPNRES ---
Progress Note Date Seen: Mar 10, 2025 Resident Creating Document: MADELEINE ESCOBAR RESIDENT Medical Necessity Reason Pt with a Central, PICC or Fol: Yes The following are medically ne: Lyons Catheter Reason for lyons catheter: Strict I&O Subjective Review of Systems Patient seen and examined at the bedside. Unable to obtain ROS due to patient's clinical status. Patient is likely going to hospice at health care facility today to continue comfort measures. Objective vital signs Vital Sign Date Time Temp Pulse Resp B/P (MAP) Pulse Ox O2 Delivery O2 Flow Rate FiO2 03/10/25 12:19 67 20 150/60 03/10/25 10:26 36.5 03/10/25 09:00 96 03/10/25 08:00 Nasal Cannula* 4 36 Total Intake and Output 03/09/25 03/09/25 03/10/25 15:00 23:00 07:00 Intake Total 0 ml 0 ml Output Total 325 ml 400 ml Balance -325 ml -400 ml medications Current Medications Medications Dose Ordered Sig/Damian Route Start Time Stop Time Status Last Admin Dose Admin Morphine Sulfate 2 mg Q30M PRN IV 03/02/25 16:15 Cancel Examination Pt is lying on bed General Appearance: Mild respiratory distress and on simple nasal cannula HEENT: Atraumatic, Mucous membranes moist/pink Respiratory: Decreased breath sounds on bilaterally and crackles all over the lungs more on right,on NC Cardiovascular: Irregularly irregular rate, Normal S1, Normal S2, No murmurs Abdominal: Active bowel sounds, Soft, no distention Extremities: right lower extremity injury, wrapped in dressing Skin: As above Neuro: Puplils are fixed and constricted, not reactive Nurse was there as catalog specialist during examination laboratory and microbiology Laboratory Tests 03/07/25 04:48 Test 03/07/25 04:48 Range/Units Serum Glucose 135 H 74-106 mg/dL Microbiology Date/Time Source Procedure Growth Status 03/03/25 19:09 Nose MRSA Screen - Final Complete 03/02/25 18:25 Voided Urine Urine Culture - Final Complete 03/02/25 15:16 Blood Blood Culture - Final NO GROWTH AFTER 5 DAYS OF INCUBATION. 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 mechanical fall # Acute toxic/metabolic encephalopathy likely due to sepsis / Below # Intra cerebral hemorrhage # Secondary ventricular hemorrhage # Acute hydrocephalus # Brain edema # Brain herniation -discontinued everything and currently on comfort measures with the Dilaudid and Ativan CVS # Hx of CAD # hypertensive urgency # ? diastolic CHF exacerbation # Afib with RVR -discontinued everything and currently on comfort measures with the Dilaudid and Ativan RS # Severe sepsis likely due to PNA # Acute toxic/metabolic encephalopathy likely due to sepsis # Acute hypoxic respiratory failure likely from PNA # Acute Gram-positive /negative bacterial PNA vs Aspiration pneumonia - [facility] ICU status -discontinued everything and currently on comfort measures with the Dilaudid and Ativan GI/Liver # Hx of Crohns - monitor for now Renal/Metabolic/Endo # JAGDISH likely VMN # Hypokalemia # hypomagnesemia # elevated lactic acid likely from sepsis --discontinued everything and currently on comfort measures with the Dilaudid and Ativan MSK # Hx of RA # ? Mech fall # Rt leg injury POA likely from fall # Nondisplaced fracture involving the Rt 3rd proximal phalanx. -discontinued everything and currently on comfort measures with the Dilaudid and Ativan Heme-Onc - -discontinued everything and currently on comfort measures with the Dilaudid and Ativan Drips- Amoidarone on 03/03/2025 discontinued on 03/07 because of only comfort measures Protonix discontinued No VTE PPX since patient is bleeding NPO for now Patient brought in with the code status of DNR/ DNI and currently comfort measures only Case discussed with Dr. Davis, and nurse Patient condition updated to his friend, daughter in law and other family members at bed side for above 73 minutes and answered all questions and changed code status from chemical code to DNR/DNI --> comfort measures only Critical care time spent excluding procedures and family meet 43 minutes Plan discussed with: Other (rn and [id number]) My Orders My Orders Orders - MADELEINE ESCOBAR RESIDENT Procedure Category Date Status Time Discharge DISCHARGE 03/10/25 Transmitted 06:32 Dietary Evaluation Review Comments: 1) TPN if NPO >7 days 2) Advance diet as medically feasible 3) if feeding tube is placed, consider TF Jevity 1.2Cal @ 65ml/hr. Start @ 20ml/hr, increase 10ml/hr Q4H until goal is reached. Water flush 150ml Q6H if allowed, adjust PRN TF at goal volume provides 100% energy & protein needs - 1872 kcal, 87gm protein, 1259 ml free water 4) Chandler 1 pk daily 5) Monitor I/O, lab values, wt trend, skin trend Expected Outcomes/Goals: To meet >75% estimated needs Wound to improve Lab values to improve Fu 2-3 days Date of Service: Mar 10, 2025 Billing Provider: DINA DAVIS MD Common Visit Codes: [id number] CARE 30-74 MIN MADELEINE ESCOBAR RESIDENT Mar 10, 2025 13:54 DINA DAVIS MD Mar 13, 2025 12:21
== END 2025-03-10 12:20 | disposition hospice, inpatient (51) | DRG 64 ==
LOC: EDBD 14:30 → ER 14:30 → OVERFLOW 16:09 → DOU IN ICU 03-03 19:00 → TELE-CENTR 03-10 00:53
PROVIDERS: ADMIT Internal Medicine; ATTEND Internal Medicine
PROC: 5A09357 Assistance with Respiratory Ventilation, Less than 24 Consecutive Hours, Continuous Positive Airway Pressure (ICD-10-PCS; 2025-03-02)
PROC: 5A0935A Assistance with Respiratory Ventilation, Less than 24 Consecutive Hours, High Flow/Velocity Cannula (ICD-10-PCS; 2025-03-03)
PROC: 5A0935A Assistance with Respiratory Ventilation, Less than 24 Consecutive Hours, High Flow/Velocity Cannula (ICD-10-PCS; 2025-03-04)
PROC: 5A0945A Assistance with Respiratory Ventilation, 24-96 Consecutive Hours, High Flow/Velocity Cannula (ICD-10-PCS; 2025-03-05)
PROC: 02HV33Z Insertion of Infusion Device into Superior Vena Cava, Percutaneous Approach (ICD-10-PCS; principal; 2025-03-07)
PROC: B548ZZA Ultrasonography of Superior Vena Cava, Guidance (ICD-10-PCS; 2025-03-07)
PROC: 5A0935A Assistance with Respiratory Ventilation, Less than 24 Consecutive Hours, High Flow/Velocity Cannula (ICD-10-PCS; 2025-03-07)
DX: I61.5 Nontraumatic intracerebral hemorrhage, intraventricular (principal); A41.59 Other Gram-negative sepsis; G92.8 Other toxic encephalopathy; G93.5 Compression of brain; R65.21 Severe sepsis with septic shock; J96.01 Acute respiratory failure with hypoxia; J15.69 Pneumonia due to other Gram-negative bacteria; N17.0 Acute kidney failure with tubular necrosis; G93.6 Cerebral edema; J69.0 Pneumonitis due to inhalation of food and vomit; J15.9 Unspecified bacterial pneumonia; E87.20 Acidosis, unspecified; G91.9 Hydrocephalus, unspecified; E87.0 Hyperosmolality and hypernatremia; I50.32 Chronic diastolic (congestive) heart failure; J44.0 Chronic obstructive pulmonary disease with (acute) lower respiratory infection; Z20.822 Contact with and (suspected) exposure to COVID-19; Z66 Do not resuscitate; Z51.5 Encounter for palliative care; I16.0 Hypertensive urgency; E87.6 Hypokalemia; E83.42 Hypomagnesemia; I25.10 Atherosclerotic heart disease of native coronary artery without angina pectoris; F17.210 Nicotine dependence, cigarettes, uncomplicated; J98.4 Other disorders of lung; M81.0 Age-related osteoporosis without current pathological fracture; E78.5 Hyperlipidemia, unspecified; I11.0 Hypertensive heart disease with heart failure; S92.514A Nondisplaced fracture of proximal phalanx of right lesser toe(s), initial encounter for closed fracture; M06.9 Rheumatoid arthritis, unspecified; I48.91 Unspecified atrial fibrillation; Z79.899 Other long term (current) drug therapy; I25.2 Old myocardial infarction; Z88.5 Allergy status to narcotic agent; Z99.81 Dependence on supplemental oxygen; W18.39XA Other fall on same level, initial encounter; Y93.89 Activity, other specified; Y92.89 Other specified places as the place of occurrence of the external cause; Y99.8 Other external cause status
CPT/HCPCS: 36415; 36569; 36600; 70450; 71045; 73590; 73620; 80048; 80053; 80202; 80320; 81001; 82010; 82140; 82746; 82805; 82962; 83605; 83735; 83880; 83930; 85007; 85025; 85027; 85610; 85730; 87040; 87081; 87086; 87426; 87804; 93005; 94003; 94640; 94660; 94668; 95819; 96361; 96365; 99291; 99292; G0378; J0131; J1815; J2470; J3480